=== PATIENT | female | born 1990 | race African-American/Black ===

== ENCOUNTER 2016-05-07 12:24 | Emergency (ER) | payer MEDICAID, MEDICARE ==
[~2016-05-07] VITALS: Ht 177.8 cm; Wt 140.6 kg
[~2016-05-07 12:24] MED LIST: AMX500CIP PO; Acetaminophen PO; CLAR-19 PO; CYCL10TA9 PO; HYDR-2890 PO; HYDR1TAB PO; IBUP-1780 PO; IBUP-30 PO; MEDR150D8 IM; NAPR-243 PO; NAPR550T PO; ONDA8TAB9 PO; PRED20TA PO; SEPTRA DS PO; SULF-222 PO; TRAM50TA2 PO; TRM50T PO
--- OUTSIDE RECORDS SUMMARY | 2016-05-07 12:29 | XMS REPORT | Continuity of Care Document ---
Author Author [facility] Organization [facility] Address Unknown Phone Unavailable Care Team Providers Care Organizational Psychologist Name Role Phone LAWANDA CANO MD PCP Advance Directives Directive Response Recorded Date/Time Advance Directives No 11/16/14 5:16pm Health Care Power of Resource Specialist Teacher No 11/16/14 5:16pm Organ Donor Yes 11/16/14 5:16pm Resuscitation Status Full Code 11/16/14 5:16pm Problems Medical Problems Problem Onset Date Status Sprain of ankle Unknown Active Abdominal pain Unknown Active Urinary tract infection Unknown Active Back strain Unknown Active Bulging lumbar disc Unknown Active Medications Medication Dose Route Sig Days/Qty Instructions Order Date Discontinued Date Status Clarithromycin 1 Tab PO TWICE A DAY 11/12/09 12/10/10 Discontinued Naproxen 1 Each PO TID PRN 20 Qty FOR PAIN 11/13/09 05/14/10 Discontinued Naproxen 1 Each PO BID - TID PRN 60 Qty 05/14/10 06/26/11 Discontinued Ibuprofen 200 Mg PO 06/26/11 10/31/11 Discontinued Naproxen Sodium 550 Mg PO TWICE A DAY PRN 10 Qty 06/26/11 10/31/11 Discontinued Hydrocodone Bit/Acetaminophen 1 Each PO NEEDED 20 Qty 10/31/1105/06 Discontinued Naproxen 1 Each PO TID PRN 20 Qty 05/27/12 12/11/12 Discontinued Tramadol HCl 50 Mg PO Q4-6HOURS PRN 20 Qty FOR PAIN 05/27/12 12/11/12 Discontinued Amoxicillin 500 Mg PO FOUR TIMES DAILY 12/11/12 03/10/13 Discontinued Naproxen 1 Each PO TWICE A DAY PRN PAIN 20 Qty 03/10/13 05/27/13 Discontinued Tramadol HCl 50 Mg PO EVERY 6 HOURS 10 Qty 03/10/13 05/27/13 Discontinued Tramadol Hcl 50 Mg PO EVERY 4HRS PRN PAIN 10 Qty 07/06/13 10/02/13 Discontinued Tramadol Hcl 50 Mg PO EVERY 4HRS PRN PAIN 10 Qty 10/02/13 10/14/13 Discontinued Tramadol HCl 50 Mg PO Q4-6HR PRN PAIN 10 Qty 10/14/13 01/29/14 Discontinued Trimethoprim/Sulfamethoxazole 1 Ea PO TWICE A DAY 10 Qty 01/29/1409/06 Discontinued [Acetaminophen] 1,000 Mg PO EVERY 6 HOURS PRN MILD PAIN 06/28/14 Discontinued [septra DS] 1 PO TWICE A DAY 7 Days 06/28/14 11/16/14 Discontinued Tramadol Hcl 50 Mg PO PRN PAIN 11/16/14 Active Prednisone 40 Mg PO DAILY 10 Qty 11/16/14 Active Cyclobenzaprine HCl (Flexeril) 1 Each PO EVERY 8HRS PRN SPASMS 10 Qty 11/16/14 Active Medroxyprogesterone Acet 150 Mg IM 11/16/14 Active Tramadol Hcl 50 Mg PO EVERY 4HRS PRN PAIN 14 Qty 11/16/14 Active Social History Social History Problem Response Recorded Date/Time Alcohol Use Denies Use 11/16/2014 5:16pm Recreational Drug Use No 11/16/2014 5:16pm Recent Foreign Travel No 02/02/2014 2:21am Recent Infectious Disease Exposure No 02/02/2014 2:21am Sexually Transmitted Disease No 11/16/2014 5:16pm HIV/AIDS No 11/16/2014 5:16pm Smoking Status Never a Smoker 11/16/2014 5:16pm Query Response Start Date Stop Date Smoking Status Never a Smoker Hospital Discharge Instructions No hospital discharge instructions. Plan of Care No plan of care. Functional Status No functional status results. Allergies, Adverse Reactions, Alerts Allergen Type Severity Reaction Status Last Updated hydrocodone ([id number]) Adverse Reaction Unknown NAUSEA Active 06/26/14 Immunizations Name Given Type Tetanus Booster (TDap) Less than 5yrs Historical Vital Signs Acute Vital Signs Vital Response Date/Time Temperature (Fahrenheit) 98.7 degrees F (97.6 - 99.5) Temperature (Calculated Celsius) 37.21334 degrees C (36.4 - 37.5) Temperature Source Temporal Pulse Rate (adult) 117 bpm (60 - 90) Respiratory Rate 20 bpm (12 - 24) O2 Sat by Pulse Oximetry 96 % (88 - 100) Blood Pressure 147/94 mm Hg Blood Pressure Mean 111 mm Hg Pain Pain Intensity 10 Height (Feet) 5 feet Height (Inches) 10 inches Height (Calculated Centimeters) 177.112457 cm Weight (Pounds) 310 pounds Weight (Calculated Kilograms) 140.445350 kilograms Calculated BMI 44.48 Results No known relevant diagnostic tests, laboratory data and/or discharge summary. Procedures No known history of procedures. Encounters Encounter Location Date/Time Departed Emergency Room Via [facility] 11/16/14 5:09pm Registered Referred Via [facility] 10/17/14 5:32pm Recent Diagnosis
[2016-05-07] MEDS ORDERED: NS IV 1000 ML 1,000 ML IV SCH (12:30)
[2016-05-07] MEDS ORDERED: ONDANSETRON 4 MG/2 ML (SDV) Z0FRAN IVP ONE (12:30)
--- NOTE | 2016-05-07 12:49 | ED Abdominal Pain ---
General Chief Complaint: Abdominal/GI Problems Stated Complaint: VOMITING, DIARRHEA Nursing Triage Note: N/V/D STARTING AT 0100 TODAY. Sepsis Screen: No Definite Risk Source of Information: Patient Exam Limitations: No Limitations History of Present Illness Time Seen By Provider: 12:48 Initial Comments To ER per mother with c/o nausea, vomiting, diarrhea x 12 hours. She awakened with vomiting at 1 a.m. last night. Throughout the course of the day she has had too many episodes of watery diarrhea without blood or mucus to count. Periumbilical pain. No fevers or chills. No eating out or travel history. Timing/Duration: 12 Hours Severity/Quality: Moderate Location: Generalized Abdomen Radiation: No Radiation Activities at Onset: None (So) Allergies and Home Medications Allergies Coded Allergies: No Known Drug Allergies (Unverified , 05/07/16) Home Medications Ondansetron 8 Mg Tab.rapdis #10 8 MG PO Q6H PRN PRN NAUSEA/VOMITING Prescribed by: DAMION CRAWFORD on 05/07/16 1425 Review of Systems Constitutional: see HPI EENTM: No Symptoms Reported Respiratory: No Symptoms Reported Cardiovascular: No Symptoms Reported Gastrointestinal: See HPI Abdominal Pain (some with some O through the) Diarrhea Nausea Vomiting Genitourinary: No Symptoms Reported Musculoskeletal: no symptoms reported Skin: no symptoms reported Psychiatric/Neurological: No Symptoms Reported Endocrine: No Symptoms Reported Hematologic/Lymphatic: No Symptoms Reported Past Rizepsr-Idzvyn-Rnutez Hx Patient Social History Alcohol Use: Occasionally Uses Recreational Drug Use: No Smoking Status: Never a Smoker Recent Foreign Travel: No Contact w/Someone Who Travel: No Recent Infectious Disease Expo: No Recent Hopitalizations: No Physical Abuse Screen: No Sexual Abuse: No Immunizations Up To Date Tetanus Booster (TDap): Less than 5yrs Seasonal Allergies Seasonal Allergies: No Surgeries HX Surgeries: No Respiratory Hx Respiratory Disorders: No Cardiovascular Hx Cardiac Disorders: No Neurological Hx Neurological Disorders: No Reproductive System : No Hx Reproductive Disorders: No Sexually Transmitted Disease: No HIV/AIDS: No Genitourinary Hx Genitourinary Disorders: No Gastrointestinal Hx Gastrointestinal Disorders: No Musculoskeletal Hx Musculoskeletal Disorders: No HEENT HX ENT Disorders: No Cancer Hx Cancer: No Psychosocial Hx Psychiatric Problems: No Integumentary HX Skin/Integumentary Disorder: No Blood Transfusions Hx Blood Disorders: No Adverse Reaction to a Blood Tr: No Family Medical History Significant Family History: No Pertinent Family Hx Family Medial History: ANXIETY 19 MOTHER Asthma 19 MOTHER (COPD) BI-POLAR 19 MOTHER BI-POLAR 19 MOTHER FH: heart attack Hypertension 19 MOTHER Physical Exam Vital Signs VS - Last 72 Hours, by Label 05/07/16 12:41 Temp 97.3 Pulse 118 Resp 18 B/P 141/88 Pulse Ox 97 Capillary Refill : Less Than 3 Seconds General Appearance: WD/WN no apparent distress obese HEENT: PERRL/EOMI normal ENT inspection Neck: non-tender full range of motion Respiratory: normal breath sounds no respiratory distress no accessory muscle use Cardiovascular: no murmur tachycardia Gastrointestinal: normal bowel sounds soft tenderness (periumbilical) Extremities: normal range of motion non-tender normal inspection Neurologic/Psychiatric: alert normal mood/affect oriented x 3 Skin: normal color warm/dry Progress/Results/Core Measures Results/Orders Lab Results Laboratory Tests Test 05/07/16 12:50 Range/Units Alanine Aminotransferase (ALT/SGPT) 15 0-55 U/L Albumin 3.9 3.2-4.5 G/DL Alkaline Phosphatase 79 40-136 U/L Anion Gap 10 5-14 MMOL/L Aspartate Amino Transf (AST/SGOT) 16 5-34 U/L BUN/Creatinine Ratio 11 Band Neutrophils 3 % Basophils # (Auto) 0.0 0.0-0.1 10^3/uL Basophils % (Manual) 0 % Basophils (%) (Auto) 0 0-10 % Blood Morphology Comment NORMAL Blood Urea Nitrogen 9 7-18 MG/DL Calcium Level 8.5 8.5-10.1 MG/DL Carbon Dioxide Level 23 21-32 MMOL/L Chloride Level 106 98-107 MMOL/L Creatinine 0.81 0.60-1.30 MG/DL Eosinophils # (Auto) 0.0 0.0-0.3 10^3/uL Eosinophils % (Manual) 1 % Eosinophils (%) (Auto) 0 0-10 % Estimat Glomerular Filtration Rate > 60 Glucose Level 112 H 70-105 MG/DL Hematocrit 41 35-52 % Hemoglobin 13.4 11.5-16.0 G/DL Lymphocytes # (Auto) 0.6 L 1.0-4.0 X 10^3 Lymphocytes % (Manual) 5 % Lymphocytes (%) (Auto) 5 L 12-44 % Mean Corpuscular Hemoglobin 28 25-34 PG Mean Corpuscular Hemoglobin Concent 33 32-36 G/DL Mean Corpuscular Volume 86 80-99 FL Mean Platelet Volume 10.2 7.4-10.4 FL Monocytes # (Auto) 0.6 0.0-1.0 X 10^3 Monocytes % (Manual) 5 % Monocytes (%) (Auto) 5 0-12 % Neutrophils # (Auto) 10.5 H 1.8-7.8 X 10^3 Neutrophils % (Manual) 86 % Neutrophils (%) (Auto) 89 H 42-75 % Platelet Count 210 130-400 10^3/uL Potassium Level 3.8 3.6-5.0 MMOL/L Red Blood Count 4.77 4.35-5.85 10^6/uL Red Cell Distribution Width 14.3 10.0-14.5 % Sodium Level 139 135-145 MMOL/L Total Bilirubin 0.4 0.1-1.0 MG/DL Total Protein 7.2 6.4-8.2 G/DL White Blood Count 11.7 H 4.3-11.0 10^3/uL My Orders Orders-DAMION CRAWFORD APRN Cbc With Automated Diff (05/07/16 12:29) Comprehensive Metabolic Panel (05/07/16 12:29) Urine Bedside (05/07/16 12:29) Saline Lock/Iv-Start (05/07/16 12:29) Ns Iv 1000 Ml (Sodium Chloride 0.9%) (05/07/16 12:30) Ondansetron Injection (Zofran Injectio (05/07/16 12:30) Manual Differential (05/07/16 12:50) Ketorolac Injection (Toradol Injection) (05/07/16 13:15) Ct Abd/Pelv W (Appendicitis) (05/07/16 13:23) Iohexol Injection (Omnipaque 350 Mg/Ml 1 (05/07/16 13:30) Ns (Ivpb) (Sodium Chloride 0.9% Ivpb Bag (05/07/16 13:30) Iohexol Injection (Omnipaque 350 Mg/Ml 1 (05/07/16 14:15) Medications Given in ED Current Medications Medications Dose Ordered Sig/Nicko Route Start Time Stop Time Status Last Admin Dose Admin Iohexol 150 ml ONCE ONCE IV 05/07/16 14:15 05/07/16 14:16 DC 05/07/16 14:15 125 ML Ketorolac Tromethamine 30 mg ONCE ONCE IVP 05/07/16 13:15 05/07/16 13:16 DC 05/07/16 13:16 30 MG Ondansetron HCl 8 mg ONCE ONCE IVP 05/07/16 12:30 05/07/16 12:31 DC 05/07/16 12:49 8 MG Sodium Chloride 100 ml ONCE ONCE IV 05/07/16 13:30 05/07/16 13:31 DC 05/07/16 14:15 80 ML Vital Signs/I&O Vital Sign - Last 12Hours 05/07/16 12:41 Temp 97.3 Pulse 118 Resp 18 B/P 141/88 Pulse Ox 97 Blood Pressure Mean: 105 Departure Communication Progress Notes 1424-Patient feels much better at this time Impression Impression: Primary Impression: Nausea vomiting and diarrhea Disposition: 01 HOME, SELF-CARE Condition: Stable Departure-Patient Inst. Decision time for Depature: 14:24 Referrals: LAWANDA CANO MD (PCP/Family) Primary Care Physician Patient Instructions: Acute Abdomen (Belly Pain), Adult (DC) Add. Discharge Instructions: 1. Return to ER for any worsening pain or fevers 2. Nausea medication as directed 3. Clear liquids only for the rest of today. Do not eat anything other than Jell-O. Gatorade and chicken broth the alternatives. 4. Starting tomorrow follow a brat diet bananas rice applesauce and toast and advance slowly to a normal diet All discharge instructions reviewed with patient and/or family. Voiced understanding. 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
[2016-05-07 12:57] LABS: BASOPHILS % (AUTO) 0 % (0-10); EOSINOPHILS % (AUTO) 0 % (0-10); LYMPHOCYTES # (AUTO) 0.6 X 10^3 (1.0-4.0); LYMPHOCYTES % (AUTO) 5 % (12-44); MEAN CORPUSCULAR HEMOGLOBIN 28 PG (25-34); MEAN CORPUSCULAR HGB CONC 33 G/DL (32-36); MEAN CORPUSCULAR VOLUME 86 FL (80-99); MEAN PLATELET VOLUME 10.2 FL (7.4-10.4); MONOCYTES # (AUTO) 0.6 X 10^3 (0.0-1.0); MONOCYTES % (AUTO) 5 % (0-12); NEUTROPHILS # (AUTO) 10.5 X 10^3 (1.8-7.8); NEUTROPHILS % (AUTO) 89 % (42-75); PLATELET COUNT 210 10^3/uL (130-400); RED BLOOD COUNT 4.77 10^6/uL (4.35-5.85); RED CELL DISTRIBUTION WIDTH 14.3 % (10.0-14.5); WHITE BLOOD COUNT 11.7 10^3/uL (4.3-11.0)
[2016-05-07 13:15] LABS: ALANINE AMINOTRANSFERASE 15 U/L (0-55); ALBUMIN 3.9 G/DL (3.2-4.5); ANION GAP 10 MMOL/L (5-14); ASPARTATE AMINO TRANSFERASE 16 U/L (5-34); BILIRUBIN,TOTAL 0.4 MG/DL (0.1-1.0); BLOOD UREA NITROGEN 9 MG/DL (7-18); BUN/CREATININE RATIO 11; CALCIUM 8.5 MG/DL (8.5-10.1); CARBON DIOXIDE 23 MMOL/L (21-32); CHLORIDE 106 MMOL/L (98-107); CREATININE SERUM 0.81 MG/DL (0.60-1.30); GFR ESTIMATED > 60; GLUCOSE 112 MG/DL (70-105); POTASSIUM 3.8 MMOL/L (3.6-5.0); SODIUM 139 MMOL/L (135-145); TOTAL PROTEIN 7.2 G/DL (6.4-8.2)
[2016-05-07] MEDS ORDERED: KETOROLAC 30 MG/ML VIAL IVP ONE (13:15)
[2016-05-07 13:17] LABS: BAND NEUTROPHILS 3 %; BASOPHILS % (MANUAL) 0 %; EOSINOPHILS % (MANUAL) 1 %; LYMPHOCYTES % (MANUAL) 5 %; NEUTROPHILS % (MANUAL) 86 %
[2016-05-07] MEDS ORDERED: IOHEXOL 350 MG/ML 100 ML (OMNIPAQUE 350) VIAL IV ONE (13:30)
[2016-05-07] MEDS ORDERED: NS 100 ML (IVPB) BAG IV ONE (13:30)
[2016-05-07] MEDS ORDERED: IOHEXOL 350 MG/ML 150 ML (OMNIPAQUE 350) VIAL IV ONE (14:15)
[2016-05-07] MEDS ORDERED: ONDA8TAB9 PO (14:25)
--- NOTE | 2016-05-07 15:09 | Diagnostic Imaging Report ---
PROCEDURE: CT abdomen and pelvis with contrast, rule out appendicitis. TECHNIQUE: Multiple contiguous axial images were obtained through the abdomen and pelvis after the administration of intravenous contrast. INDICATION: Nausea, vomiting, diarrhea, pain greatest in the right lower quadrant. FINDINGS: The appendix can be identified. Its lumen particularly distally is air containing. Its wall is non thickened. There was no abnormal mucosal hyperenhancement and no periappendiceal edema. There are no findings of appendicitis in this patient. The urinary tracts are unobstructed. The liver, gallbladder, bile ducts, spleen, adrenals, and pancreas are normal. There is fluid within the lumen of the small bowel diffusely, mildly distended with some scattered air-fluid levels. Partial obstruction could not be differentiated from a hypermotile state such as enteritis. There is some fluid in the large bowel. No transition zones are identified. There is no ascites, abscess, hematoma, or other fluid collection. No pneumatosis. No free air. Kidneys are unobstructed and appeared normal. The spleen is unremarkable. There is mild hepatic steatosis. The gallbladder and bile ducts are normal. The aortoiliac vessels are patent. IMPRESSION: 1. There is some fluid within the large and small bowel loops. The small bowel is mildly distended and showed scattered air-fluid levels, suggestive of an enteritis. No abrupt or discrete transition zone however early or partial small bowel obstruction could not be excluded, although felt less likely. 2. Normal appendix. No adnexal lesion. No diverticulitis. Unobstructed urinary tracts. Otherwise, negative exam. Dictated by: Dictated on workstation # [id number]
[2016-05-07] MEDS ORDERED: PROM25TA14 PO (15:32)
[2016-05-07 15:33] VITALS: BP 129/77
== END 2016-05-07 15:33 | disposition home or self-care (01) ==
LOC: EDUNIT# 12:24 → ER 12:26
DX: R11.2 Nausea with vomiting, unspecified (principal); R19.7 Diarrhea, unspecified
CPT/HCPCS: 36415; 74177; 80053; 84703; 85007; 85025; 85027; 96374; 96375

== ENCOUNTER 2016-06-23 19:31 | Emergency (ER) | payer MEDICAID, MEDICARE ==
[~2016-06-23] VITALS: Ht 177.8 cm; Wt 140.6 kg
[~2016-06-23 19:31] MED LIST changes: +PROM25TA14 PO
--- OUTSIDE RECORDS SUMMARY | 2016-06-23 19:36 | XMS REPORT | Continuity of Care Document ---
Author Author [facility] Organization [facility] Address Unknown Phone Unavailable Care Team Providers Care Tufter Operator Name Role Phone LAWANDA CANO MD PCP Advance Directives Directive Response Recorded Date/Time Advance Directives No 11/16/14 5:16pm Health Care Power of Sales Warehouse Driver No 11/16/14 5:16pm Organ Donor Yes 11/16/14 [...] Type Severity Reaction Status Last Updated hydrocodone ([id number]) Adverse Reaction Unknown NAUSEA Active 06/26/14 Immunizations Name Given Type Tetanus Booster (TDap) Less than 5yrs Historical Vital Signs Acute Vital Signs Vital Response Date/Time Temperature (Fahrenheit) 98.7 degrees F (97.6 - 99.5) Temperature (Calculated Celsius) 37.76225 degrees C (36.4 - 37.5) Temperature Source Temporal Pulse Rate (adult) 117 bpm (60 - 90) Respiratory Rate 20 bpm (12 - 24) O2 Sat by Pulse Oximetry 96 % (88 - 100) Blood Pressure 147/94 mm Hg Blood Pressure Mean 111 mm Hg Pain Pain Intensity 10 Height (Feet) 5 feet Height (Inches) 10 inches Height (Calculated Centimeters) 177.051559 cm Weight (Pounds) 310 pounds Weight (Calculated Kilograms) 140.134909 kilograms Calculated BMI 44.48 Results No known relevant diagnostic tests, laboratory data and/or discharge summary. Procedures No known history of procedures. Encounters Encounter Location Date/Time Departed Emergency Room Via [facility] 11/16/14 5:09pm Registered Referred Via [facility] 10/17/14 5:32pm Recent Diagnosis
--- NOTE | 2016-06-23 19:52 | ED Abdominal Pain ---
General Chief Complaint: Abdominal/GI Problems Stated Complaint: ABD PAIN Source of Information: Patient Exam Limitations: No Limitations History of Present Illness Time Seen By Provider: 19:52 Initial Comments Patient complains of right-sided abdominal pain since this morning. It has gotten worse. It is associated with nausea and subjective fever. She has not vomited. Last menstrual period was 2 weeks ago. She is on control pills. Pain is worse with movement such as walking. Allergies and Home Medications Allergies Coded Allergies: No Known Drug Allergies (Unverified , 05/07/16) Home Medications (Reported) Review of Systems Constitutional: fever EENTM: No Symptoms Reported Respiratory: No Symptoms Reported Cardiovascular: No Symptoms Reported Gastrointestinal: Abdominal Pain NauseaDenies Vomiting Genitourinary: No Symptoms Reported Musculoskeletal: no symptoms reported All Other Systems Reviewed Negative Unless Noted: Yes Past Aacqhec-Oxnjdf-Unthqp Hx Patient Social History Recent Foreign Travel: No Contact w/Someone Who Travel: No Recent Hopitalizations: No Immunizations Up To Date Tetanus Booster (TDap): Less than 5yrs Seasonal Allergies Seasonal Allergies: No Surgeries HX Surgeries: No Respiratory Hx Respiratory Disorders: No Cardiovascular Hx Cardiac Disorders: No Neurological Hx Neurological Disorders: No Reproductive System Hx Reproductive Disorders: No Sexually Transmitted Disease: No HIV/AIDS: No Genitourinary Hx Genitourinary Disorders: No Gastrointestinal Hx Gastrointestinal Disorders: No Musculoskeletal Hx Musculoskeletal Disorders: No HEENT HX ENT Disorders: No Cancer Hx Cancer: No Psychosocial Hx Psychiatric Problems: No Integumentary HX Skin/Integumentary Disorder: No Blood Transfusions Hx Blood Disorders: No Adverse Reaction to a Blood Tr: No Reviewed Nursing Assessment Reviewed/Agree w Nursing PMH: Yes Family Medical History Significant Family History: No Pertinent Family Hx Family Medial History: ANXIETY 19 MOTHER Asthma 19 MOTHER (COPD) BI-POLAR 19 MOTHER BI-POLAR 19 MOTHER FH: heart attack Hypertension 19 MOTHER Physical Exam Vital Signs VS - Last 72 Hours, by Label 06/23/16 19:34 Temp 99.3 Pulse 107 Resp 20 B/P 185/94 Pulse Ox 98 O2 Delivery Room Air Capillary Refill : General Appearance: WD/WN mild distress obese HEENT: PERRL/EOMI pharynx normal Neck: supple Respiratory: lungs clear normal breath sounds Cardiovascular: regular rate, rhythm no edema Gastrointestinal: softNo guarding, No rebound, tenderness (tender over McBurney's spot) Extremities: normal inspection Back: normal inspection Neurologic/Psychiatric: alert normal mood/affect Skin: normal color warm/dry Progress/Results/Core Measures Results/Orders Lab Results Laboratory Tests Test 06/23/16 19:40 06/23/16 19:45 Range/Units Urine Bacteria FEW H /HPF Urine Bilirubin NEGATIVE NEGATIVE Urine Casts NONE /LPF Urine Clarity CLEAR Urine Color YELLOW Urine Crystals NONE /LPF Urine Culture Indicated NO Urine Glucose (UA) NEGATIVE NEGATIVE Urine Ketones NEGATIVE NEGATIVE Urine Leukocyte Esterase NEGATIVE NEGATIVE Urine Mucus SMALL H /LPF Urine Nitrite NEGATIVE NEGATIVE Urine Protein NEGATIVE NEGATIVE Urine RBC NONE /HPF Urine RBC (Auto) NEGATIVE NEGATIVE Urine Specific [place] 1.020 1.016-1.022 Urine Squamous Epithelial Cells 2-5 /HPF Urine Urobilinogen NORMAL NORMAL MG/DL Urine WBC NONE /HPF Urine pH 6.5 5-9 Alanine Aminotransferase (ALT/SGPT) 15 0-55 U/L Albumin 4.0 3.2-4.5 G/DL Alkaline Phosphatase 103 40-136 U/L Anion Gap 14 5-14 MMOL/L Aspartate Amino Transf (AST/SGOT) 18 5-34 U/L BUN/Creatinine Ratio 10 Basophils # (Auto) 0.0 0.0-0.1 10^3/uL Basophils (%) (Auto) 0 0-10 % Blood Urea Nitrogen 8 7-18 MG/DL Calcium Level 8.7 8.5-10.1 MG/DL Carbon Dioxide Level 20 L 21-32 MMOL/L Chloride Level 109 H 98-107 MMOL/L Creatinine 0.82 0.60-1.30 MG/DL Eosinophils # (Auto) 0.3 0.0-0.3 10^3/uL Eosinophils (%) (Auto) 3 0-10 % Estimat Glomerular Filtration Rate > 60 Glucose Level 72 70-105 MG/DL Hematocrit 39 35-52 % Hemoglobin 12.9 11.5-16.0 G/DL Lipase 11 8-78 U/L Lymphocytes # (Auto) 2.4 1.0-4.0 X 10^3 Lymphocytes (%) (Auto) 27 12-44 % Mean Corpuscular Hemoglobin 28 25-34 PG Mean Corpuscular Hemoglobin Concent 33 32-36 G/DL Mean Corpuscular Volume 85 80-99 FL Mean Platelet Volume 10.8 H 7.4-10.4 FL Monocytes # (Auto) 0.7 0.0-1.0 X 10^3 Monocytes (%) (Auto) 8 0-12 % Neutrophils # (Auto) 5.7 1.8-7.8 X 10^3 Neutrophils (%) (Auto) 62 42-75 % Platelet Count 207 130-400 10^3/uL Potassium Level 3.9 3.6-5.0 MMOL/L Red Blood Count 4.60 4.35-5.85 10^6/uL Red Cell Distribution Width 14.0 10.0-14.5 % Sodium Level 143 135-145 MMOL/L Total Bilirubin 0.2 0.1-1.0 MG/DL Total Protein 7.2 6.4-8.2 G/DL White Blood Count 9.2 4.3-11.0 10^3/uL My Orders Orders-TIANA LAKE MD Cbc With Automated Diff (06/23/16 19:35) Comprehensive Metabolic Panel (06/23/16 19:35) Lipase (06/23/16 19:35) Ua Culture If Indicated (06/23/16 19:35) Urine Bedside (06/23/16 19:35) Ct Abd/Pelv W (Appendicitis) (06/23/16 19:56) Iohexol Injection (Omnipaque 350 Mg/Ml 1 (06/23/16 20:15) Ns (Ivpb) (Sodium Chloride 0.9% Ivpb Bag (06/23/16 20:15) Medications Given in ED Current Medications Medications Dose Ordered Sig/Nicko Route Start Time Stop Time Status Last Admin Dose Admin Iohexol 100 ml ONCE ONCE IV 06/23/16 20:15 06/23/16 20:16 DC 06/23/16 20:18 100 ML Sodium Chloride 100 ml ONCE ONCE IV 06/23/16 20:15 06/23/16 20:16 DC 06/23/16 20:18 100 ML Vital Signs/I&O Vital Sign - Last 12Hours 06/23/16 19:34 Temp 99.3 Pulse 107 Resp 20 B/P 185/94 Pulse Ox 98 O2 Delivery Room Air Point of Care Testing Urine -Bedside: Negative Progress Note : Time: 21:[address] findings discussed with patient. She has remained stable. We'll discharge with tramadol. Diagnostic Imaging Comments INDICATION: 25-year-old female presents to the ER with a 2-day history of right lower quadrant abdominal pain. COMPARISONS: 05/07/16 FINDINGS: Lung bases are clear. Cardiac contour is normal. Liver shows uniform attenuation. Gallbladder is decompressed. Spleen and GE junction are normal. Stomach and duodenal sweep are unremarkable. Pancreas shows sharp margins. Adrenals are normal. Kidneys appear normal in size, position and contour. There is suboptimal contrast opacification, however, the kidneys show symmetrical perfusion and excretion of contrast. Both ureters are seen intermittently through their course. Bilateral ureteral jets are seen. The partially filled bladder is unremarkable. The nonopacified loops of small bowel are grossly normal. There are multiple small mesenteric nodes suggesting an element of adenitis. Large bowel contains fecal material and gas. The visualized vasculature includes a normal caliber of the aorta, iliac and femoral arteries. There is normal origin of the visceral arteries. Bone windows Show no overall gross abnormalities. IMPRESSION: 1. Findings suggest mesenteric adenitis. 2. No evidence of cholecystitis, appendicitis or obstructive uropathy. Additional nonemergent findings as described above Departure Impression Impression: Primary Impression: abdominal pain Additional Impression: Mesenteric adenitis Disposition: 01 HOME, SELF-CARE Condition: Stable Departure-Patient Inst. Decision time for Depature: 21:07 Referrals: LAWANDA CANO MD (PCP/Family) Primary Care Physician Patient Instructions: Mesenteric Lymphadenitis Scripts Tramadol HCl 50 Mg Tablet1-2 Mg PO Q6H PRN PAIN #10 TAB Prov:TIANA LAKE MD 06/23/16 TIANA LAKE MD Jun 23, 2016 19:52
[2016-06-23 19:55] LABS: BASOPHILS % (AUTO) 0 % (0-10); EOSINOPHILS # (AUTO) 0.3 10^3/uL (0.0-0.3); EOSINOPHILS % (AUTO) 3 % (0-10); LYMPHOCYTES # (AUTO) 2.4 X 10^3 (1.0-4.0); LYMPHOCYTES % (AUTO) 27 % (12-44); MEAN CORPUSCULAR HEMOGLOBIN 28 PG (25-34); MEAN CORPUSCULAR HGB CONC 33 G/DL (32-36); MEAN CORPUSCULAR VOLUME 85 FL (80-99); MEAN PLATELET VOLUME 10.8 FL (7.4-10.4); MONOCYTES # (AUTO) 0.7 X 10^3 (0.0-1.0); MONOCYTES % (AUTO) 8 % (0-12); NEUTROPHILS # (AUTO) 5.7 X 10^3 (1.8-7.8); NEUTROPHILS % (AUTO) 62 % (42-75); PLATELET COUNT 207 10^3/uL (130-400); WHITE BLOOD COUNT 9.2 10^3/uL (4.3-11.0)
[2016-06-23 19:56] LABS: BILIRUBIN,URINE NEGATIVE (NEGATIVE); KETONES,URINE NEGATIVE (NEGATIVE); LEUKOCYTE ESTERASE ,URINE NEGATIVE (NEGATIVE); NITRITE,URINE NEGATIVE (NEGATIVE); PH,URINE 6.5 (5-9); PROTEIN,URINE NEGATIVE (NEGATIVE); UROBILINOGEN,URINE NORMAL (NORMAL)
[2016-06-23] MEDS ORDERED: BCP (20:00)
[2016-06-23] MEDS ORDERED: NS 100 ML (IVPB) BAG IV ONE (20:15)
[2016-06-23] MEDS ORDERED: IOHEXOL 350 MG/ML 100 ML (OMNIPAQUE 350) VIAL IV ONE (20:15)
[2016-06-23 20:16] LABS: ALANINE AMINOTRANSFERASE 15 U/L (0-55); ANION GAP 14 MMOL/L (5-14); ASPARTATE AMINO TRANSFERASE 18 U/L (5-34); BILIRUBIN,TOTAL 0.2 MG/DL (0.1-1.0); BLOOD UREA NITROGEN 8 MG/DL (7-18); BUN/CREATININE RATIO 10; CALCIUM 8.7 MG/DL (8.5-10.1); CARBON DIOXIDE 20 MMOL/L (21-32); CHLORIDE 109 MMOL/L (98-107); CREATININE SERUM 0.82 MG/DL (0.60-1.30); GFR ESTIMATED > 60; GLUCOSE 72 MG/DL (70-105); LIPASE 11 U/L (8-78); POTASSIUM 3.9 MMOL/L (3.6-5.0); SODIUM 143 MMOL/L (135-145); TOTAL PROTEIN 7.2 G/DL (6.4-8.2)
--- NOTE | 2016-06-23 21:01 | Diagnostic Imaging Report ---
PROCEDURE: CT abdomen and pelvis with contrast, rule out appendicitis. TECHNIQUE: Multiple contiguous axial images were obtained through the abdomen and pelvis after the administration of intravenous contrast. INDICATION: 25-year-old female presents to the ER with a 2-day history of right lower quadrant abdominal pain. COMPARISONS: 05/07/16 FINDINGS: Lung bases are clear. Cardiac contour is normal. Liver shows uniform attenuation. Gallbladder is decompressed. Spleen and GE junction are normal. Stomach and duodenal sweep are unremarkable. Pancreas shows sharp margins. Adrenals are normal. Kidneys appear normal in size, position and contour. There is suboptimal contrast opacification, however, the kidneys show symmetrical perfusion and excretion of contrast. Both ureters are seen intermittently through their course. Bilateral ureteral jets are seen. The partially filled bladder is unremarkable. The nonopacified loops of small bowel are grossly normal. There are multiple small mesenteric nodes suggesting an element of adenitis. Large bowel contains fecal material and gas. The visualized vasculature includes a normal caliber of the aorta, iliac and femoral arteries. There is normal origin of the visceral arteries. Bone windows Show no overall gross abnormalities. IMPRESSION: 1. Findings suggest mesenteric adenitis. 2. No evidence of cholecystitis, appendicitis or obstructive uropathy. Additional nonemergent findings as described above. Dictated by: Dictated on workstation # [id number]
[2016-06-23] MEDS ORDERED: TRAM50TA2 PO (21:11)
[2016-06-23] MEDS ORDERED: RX-TRAMADOL 50 MG (ULTRAM) TAB PPK#4 PO STA (21:11)
[2016-06-23 21:16] VITALS: BP 171/88
== END 2016-06-23 21:16 | disposition home or self-care (01) ==
LOC: EDUNIT# 19:31 → ER 19:32
DX: I88.0 Nonspecific mesenteric lymphadenitis (principal)
CPT/HCPCS: 36415; 74177; 80053; 81000; 83690; 84703; 85025

== ENCOUNTER → 2016-07-30 | Outpatient (CLI) | payer MEDICARE, MEDICAID ==
[~2016-07-30] MED LIST changes: +BCP
--- NOTE | 2016-07-30 10:50 | Diagnostic Imaging Report ---
PROCEDURE: US Gallbladder. TECHNIQUE: Multiple real-time grayscale images were obtained over the right upper quadrant in various projections. INDICATION: Right upper quadrant pain. FINDINGS: The visualized portions of the pancreas appear unremarkable. The liver demonstrates no focal lesion. Hepatopedal flow in the portal vein is seen. The gallbladder demonstrates no stones or wall thickening. No pericholecystic fluid. The CBD is 3 mm in caliber. The right kidney is 11.1 CM in length with no hydronephrosis or focal lesion. No free fluid or fluid collection in the abdomen or pelvis. Sonographic Munoz sign is reportedly negative. IMPRESSION: Unremarkable exam. Dictated by: Dictated on workstation # [id number]
== END ==
LOC: RAD 06:44
PROVIDERS: ATTEND Family Medicine
DX: R10.11 Right upper quadrant pain (principal)
CPT/HCPCS: 76705

== ENCOUNTER 2016-09-22 17:27 | Emergency (ER) | payer MEDICARE, MEDICAID ==
[~2016-09-22] VITALS: Ht 177.8 cm; Wt 138.3 kg
[2016-09-22] MEDS ORDERED: PRD20T PO (17:43)
[2016-09-22] MEDS ORDERED: IBUP-1780 PO (17:43)
[2016-09-22] MEDS ORDERED: CYCL10TA9 PO (17:43)
--- NOTE | 2016-09-22 17:44 | ED Back Pain ---
General Chief Complaint: Back Problems Stated Complaint: BACK PAIN Nursing Triage Note: C/O BACK PAIN NO INJURY X 2 DAYS Source of Information: Patient, Family (mother) Exam Limitations: No Limitations History of Present Illness Time Seen by Provider: 17:33 Initial Comments 26-year-old female patient presents to the emergency department with complaints of back pain for 2 days without known injury. States she awoke with the pain. Denies numbness, weakness, bowel incontinence, bladder incontinence. Location: Paraspinous Muscles Timing/Duration: 2-3 Days, Constant Pain/Injury Location: Back Radiation: Other (denies radiation) Method of Injury: Unknown Modifying Factors: Worse With Movement Associated Symptoms: muscle spasms, No numbness in legs/feet, No tingling in legs/feet, No sensory/motor loss, lower back pain, No loss of bladder control, No loss of bowel control Allergies and Home Medications Allergies Coded Allergies: No Known Drug Allergies (Unverified , 05/07/16) Home Medications Cyclobenzaprine HCl 10 Mg Tablet, 10 MG PO Q8H PRN for SPASMS, #14 Ref 0 Prescribed by: ROGELIO CEE on 09/22/161742 Ibuprofen 800 Mg Tablet, 800 MG PO Q8H PRN for PAIN, #30 Ref 0 Prescribed by: ROGELIO CEE on 09/22/161742 Prednisone 20 Mg Tab, 40 MG PO DAILY, #10 Ref 0 Prescribed by: ROGELIO CEE on 09/22/161742 Tramadol HCl 50 Mg Tablet, 1-2 MG PO Q6H PRN for PAIN, #10 Prescribed by: TIANA LAKE on 06/23/162110 [Bcp] , (Reported) Constitutional: No chills, No fever, No malaise Respiratory: no symptoms reported Cardiovascular: no symptoms reported Gastrointestinal: No abdominal pain, No constipation, No diarrhea, No nausea, No vomiting Genitourinary: No dysuria, No frequency, No hematuria, No pain Musculoskeletal: see HPI, back pain, No joint pain Skin: no symptoms reported Psychiatric/Neurological: No Symptoms Reported All Other Systems Reviewed Negative Unless Noted: Yes (Negative excepted noted.) Past Ardajbk-Rarlor-Rdrdnf Hx Patient Social History Recent Foreign Travel: No Contact w/Someone Who Travel: No Recent Hopitalizations: No Immunizations Up To Date Tetanus Booster (TDap): Less than 5yrs Seasonal Allergies Seasonal Allergies: No Surgeries HX Surgeries: No Respiratory Hx Respiratory Disorders: No Cardiovascular Hx Cardiac Disorders: No Neurological Hx Neurological Disorders: No Reproductive System Hx Reproductive Disorders: No Sexually Transmitted Disease: No HIV/AIDS: No Genitourinary Hx Genitourinary Disorders: No Gastrointestinal Hx Gastrointestinal Disorders: No Musculoskeletal Hx Musculoskeletal Disorders: No HEENT HX ENT Disorders: No Cancer Hx Cancer: No Psychosocial Hx Psychiatric Problems: No Integumentary HX Skin/Integumentary Disorder: No Blood Transfusions Hx Blood Disorders: No Adverse Reaction to a Blood Tr: No Reviewed Nursing Assessment Reviewed/Agree w Nursing PMH: Yes Family Medical History Significant Family History: No Pertinent Family Hx Family Medial History: ANXIETY 19 MOTHER Asthma 19 MOTHER (COPD) BI-POLAR 19 MOTHER BI-POLAR 19 MOTHER FH: heart attack Hypertension 19 MOTHER Physical Exam Vital Signs Vital Sign - Last 12Hours 09/22/16 17:33 Temp 97.7 Pulse 81 Resp 18 B/P (MAP) 140/100 Pulse Ox 99 O2 Delivery Room Air Capillary Refill : General Appearance: No Apparent Distress, WD/WN Neck: Full Range of Motion, Normal Inspection, Non Tender, Supple Cardiovascular: Regular Rate, Rhythm, No Edema, No Murmur, Normal Peripheral Pulses Respiratory: Lungs Clear, Normal Breath Sounds, No Respiratory Distress Gastrointestinal: Normal Bowel Sounds, Non Tender, Soft Back: Normal Inspection, No Decreased Range of Motion, Vertebral Tenderness ( minimal tenderness over the L4, L5, and S1.), Other (tenderness over the bilateral low back paraspinous muscles) Extremity: Normal Capillary Refill, Normal Inspection, Normal Range of Motion, Non Tender, No Pedal Edema Neurologic/Psychiatric: Alert, Oriented x3, No Motor/Sensory Deficits, Normal Mood/Affect Skin: Normal Color, Warm/Dry Progress/Results/Core Measures Results/Orders My Orders Orders - ROGELIO CEE Cyclobenzaprine Tablet (Flexeril Tablet) (09/22/16 17:44) Tramadol Tablet (Ultram Tablet) (09/22/16 17:44) Vital Signs/I&O Vital Sign - Last 12Hours 09/22/16 09/22/16 17:33 17:54 Temp 97.7 97.7 Pulse 81 81 Resp 18 18 B/P (MAP) 140/100 Pulse Ox 99 99 O2 Delivery Room Air Departure Communication Progress Notes Patient seen and evaluated. Plan for discharge to home. Impression Impression: Primary Impression: Lumbosacral strain Qualified Codes: S39.012A - Strain of muscle, fascia and tendon of lower back , initial encounter Disposition: 01 HOME, SELF-CARE Condition: Improved Departure-Patient Inst. Decision time for Depature: 17:41 Referrals: LAWANDA DANGELO MD (PCP/Family) Primary Care Physician Patient Instructions: Low Back Pain (DC) Add. Discharge Instructions: All discharge instructions reviewed with patient and/or family. Voiced understanding. Medications as instructed. Tylenol Extra Strength over-the- counter as directed for pain. Ice pack or heating pads as needed for pain. No lifting, pushing, pulling, twisting, bending, climbing 7 days. Follow-up with Dr. Dangelo is an outpatient for a recheck if no improvement in symptoms in 7-10 days. Return to the emergency department for worsened pain, fever, inability to urinate, blood in the urine, numbness, weakness, bowel incontinence, bladder incontinence, or any other concerns. Scripts Ibuprofen (Ibuprofen) 800 Mg Tablet 800 MG PO Q8H Y for PAIN, #30 TAB 0 Refills Prov: ROGELIO CEE 09/22/16 Cyclobenzaprine HCl (Cyclobenzaprine HCl) 10 Mg Tablet 10 MG PO Q8H Y for SPASMS, #14 TAB 0 Refills Prov: ROGELIO CEE 09/22/16 Prednisone (Prednisone) 20 Mg Tab 40 MG PO DAILY, #10 TAB 0 Refills Prov: ROGELIO CEE 09/22/16 ROGELIO CEE September 22, 2016 17:44
[2016-09-22] MEDS: CYCLOBENZAPRINE 10 MG (FLEXERIL) TAB PO STA (17:52)
[2016-09-22 17:54] VITALS: BP 140/100
== END 2016-09-22 17:54 | disposition home or self-care (01) ==
LOC: EDUNIT# 17:27 → ER 17:29
DX: S39.012A Strain of muscle, fascia and tendon of lower back, initial encounter (principal); X50.9XXA Other and unspecified overexertion or strenuous movements or postures, initial encounter; Y99.8 Other external cause status
CPT/HCPCS: 99281

== ENCOUNTER 2017-08-11 15:55 | Emergency (ER) | payer MEDICAID, MEDICARE ==
[~2017-08-11] VITALS: Ht 177.8 cm; Wt 140.6 kg
[~2017-08-11 15:55] MED LIST changes: +PRD20T PO
--- OUTSIDE RECORDS SUMMARY | 2017-08-11 16:02 | XMS REPORT | Continuity of Care Document ---
Author Author [facility] Organization [facility] Address Unknown Phone Unavailable Allergies Active Description Code Type Severity Reaction Onset Reported/Identified Relationship to Patient Clinical Status Yes hydrocodone [id number] Drug Allergy Unknown NAUSEA 06/26/2014 Yes No Known Drug Allergies [id number] Drug Allergy Unknown N/A 05/07/2016 Medications There is no data. Problems Date Dx Coded Attending Type Code Diagnosis Diagnosed By 10/08/2009 Ot 620.2 10/08/2009 Ot 789.09 11/13/2009 Ot 845.00 11/13/2009 Ot 959.7 11/13/2009 Ot E000.8 11/13/2009 Ot E849.0 11/13/2009 Ot E883.9 05/14/2010 Ot 923.20 05/14/2010 Ot 959.4 05/14/2010 Ot E000.8 05/14/2010 Ot E849.0 05/14/2010 Ot E917.9 12/10/2010 Ot 845.00 SPRAIN OF ANKLE NOS 12/10/2010 Ot 959.7 LOWER LEG INJURY NOS 12/10/2010 Ot E000.8 OTHER EXTERNAL CAUSE STATUS 12/10/2010 Ot E849.0 ACCIDENT IN HOME 12/10/2010 Ot E880.9 FALL ON STAIR/STEP NEC 06/26/2011 Ot 719.41 JOINT PAIN- SHLDER 06/26/2011 Ot 726.10 BURSAE TENDONS DIS SHLDER NOS 09/07/2011 Ot 923.20 CONTUSION OF HAND(S) 09/07/2011 Ot 959.4 HAND INJURY NOS 09/07/2011 Ot E000.8 OTHER EXTERNAL CAUSE STATUS 09/07/2011 Ot E849.0 ACCIDENT IN HOME 09/07/2011 Ot E917.4 STAT OB W/O SUB FALL NEC 10/31/2011 Ot 786.52 PAINFUL RESPIRATION 01/24/2012 Ot 719.45 JOINT PAIN- PELVIS 01/24/2012 Ot 924.01 CONTUSION OF HIP 01/24/2012 Ot E000.8 OTHER EXTERNAL CAUSE STATUS 01/24/2012 Ot E888.9 FALL NOS 05/27/2012 Ot 719.46 JOINT PAIN-L /LEG 12/11/2012 KELLY FRENCH, ALEAH Suarez Ot 924.11 CONTUSION OF KNEE 12/11/2012 KELLY FRENCH, ALEAH Suarez Ot 959.7 LOWER LEG INJURY NOS 12/11/2012 ALEAH MENDOZA MD Ot E000.8 OTHER EXTERNAL CAUSE STATUS 12/11/2012 KELLY FRENCH, ALEAH Suarez Ot E849.4 ACCID IN RECREATION AREA 12/11/2012 ALEAH MENDOZA MD Ot E888.9 FALL NOS 03/10/2013 DAMION CRAWFORD APRN Ot 845.00 SPRAIN OF ANKLE NOS 03/10/2013 DAMION CRAWFORD APRN Ot 959.7 LOWER LEG INJURY NOS 03/10/2013 DAMION CRAWFORD APRN Ot E000.8 OTHER EXTERNAL CAUSE STATUS 03/10/2013 DAMION CRAWFORD APRN Ot E001.0 ACTIVITIES INVOLVING WALKING, MARCHING A 03/10/2013 DAMION CRAWFORD APRN Ot E849.[address]/HIGHWAY 03/10/2013 DAMION CRAWFORD APRN Ot E883.9 FALL INTO OTHER HOLE 05/27/2013 TERRI ALEXANDER DO Ot 789.03 ABDOMINAL PAIN, RIGHT LOWER QUADRANT 07/06/2013 ROGELIO BARON Ot 923.20 CONTUSION OF HAND(S) 07/06/2013 ROGELIO BARON Ot 959.4 HAND INJURY NOS 07/06/2013 ROGELIO BARON Ot E000.8 OTHER EXTERNAL CAUSE STATUS 07/06/2013 ROGELIO BARON Ot E917.4 STAT OB W/O SUB FALL NEC 10/02/2013 ROGELIO BARON Ot 917.0 ABRASION FOOT TOE 10/02/2013 ROGELIO BARON Ot 924.20 CONTUSION OF FOOT 10/02/2013 ROGELIO BARON Ot E916 STRUCK BY FALLING OBJECT 10/14/2013 DAMION CRAWFORD APRN Ot 724.2 LUMBAGO 01/29/2014 CRAWFORD, PETER J RELIGIOUS EDUCATOR Ot 599.0 URIN TRACT INFECTION NOS 01/29/2014 DAMION CRAWFORD RELIGIOUS EDUCATOR Ot 789.09 ABDOMINAL PAIN, OTHER SPECIFIED SITE 02/02/2014 TERRI ALEXANDER DO Ot 789.01 ABDOMINAL PAIN, RIGHT UPPER QUADRANT 06/28/2014 Ot 599.0 URIN TRACT INFECTION NOS 07/18/2014 Ot 789.05 10/16/2014 JEROME FRENCH, LAWANDA R Ot 715.36 11/16/2014 Ot 620.2 11/16/2014 Ot 719.47 11/16/2014 JEROME FRENCH, LAWANDA R Ot 780.99 11/16/2014 JEROME FRENCH, LAWANDA R Ot 784.49 11/16/2014 JEROME FRENCH, LAWANDA R Ot 790.29 11/16/2014 Ot 789.05 11/16/2014 JEROME FRENCH, LAWANDA R Ot 715.36 11/16/2014 ROGELIO BARON Ot 847.2 SPRAIN LUMBAR REGION 11/16/2014 ROGELIO BARON Ot 959.19 OTH INJURY OF OTHER SITES OF TRUNK 11/16/2014 ROGELIO BARON Ot E000.8 OTHER EXTERNAL CAUSE STATUS 11/16/2014 ROGELIO BARON Ot E013.2 ACTIVITIES INVOLVING VACUUMING 11/16/2014 ROGELIO BARON Ot E849.0 ACCIDENT IN HOME 11/16/2014 ROGELIO BARON Ot E885.9 FALL FROM SLIPPING, TRIPPING, OR STUMBLI 01/16/2015 Ot 789.01 01/16/2015 Ot 789.06 05/06/2015 Ot 719.47 05/06/2015 JEROME FRENCH, LAWANDA R Ot 780.99 05/06/2015 JEROME FRENCH, LAWANDA R Ot 784.49 05/06/2015 JEROME FRENCH, LAWANDA R Ot 790.29 05/06/2015 Ot 789.05 05/06/2015 JEROME FRENCH, LAWANDA R Ot 715.36 05/06/2015 Ot 789.01 05/06/2015 Ot 789.06 05/06/2015 DAMION CRAWFORD RELIGIOUS EDUCATOR Ot K52.9 NONINFECTIVE GASTROENTERITIS AND COLITIS 11/26/2015 CRAWFORD, PETER J RELIGIOUS EDUCATOR Ot N20.0 CALCULUS OF KIDNEY 11/26/2015 DAMION CRAWFORD RELIGIOUS EDUCATOR Ot N83.20 UNSPECIFIED OVARIAN CYSTS 11/26/2015 DAMION CRAWFORD RELIGIOUS EDUCATOR Ot R10.31 RIGHT LOWER QUADRANT PAIN 11/28/2015 Ot 719.47 JOINT PAIN- ANKLE 11/28/2015 JEROME FRENCH LAWANDA R Ot 780.99 OTHER GENERAL SYMPTOMS NOS 11/28/2015 JEROME FRENHC LAWANDA R Ot 784.49 OTHER VOICE AND RESONANCE DISORDERS 11/28/2015 JEROME FRENCH LAWANDA R Ot 790.29 OTHER ABNORMAL GLUCOSE 11/28/2015 Ot 789.05 ABDOMINAL PAIN, PERIUMBILIC 11/28/2015 JEROME FRENCH LAWANDA R Ot 715.36 LOC OSTEOARTH NOS-L/LEG 11/28/2015 Ot 789.01 ABDOMINAL PAIN, RIGHT UPPER QUADRANT 11/28/2015 Ot 789.06 ABDOMINAL PAIN, EPIGASTRIC 05/07/2016 Ot 719.47 JOINT PAIN- ANKLE 05/07/2016 JEROME FRENCH LAWANDA R Ot 780.99 OTHER GENERAL SYMPTOMS NOS 05/07/2016 JEROME FRENCH LAWANDA R Ot 784.49 OTHER VOICE AND RESONANCE DISORDERS 05/07/2016 JEROME FRENCH LAWANDA R Ot 790.29 OTHER ABNORMAL GLUCOSE 05/07/2016 Ot 789.05 ABDOMINAL PAIN, PERIUMBILIC 05/07/2016 JEROME FRENCH LAWANDA R Ot 715.36 LOC OSTEOARTH NOS-L/LEG 05/07/2016 Ot 789.01 ABDOMINAL PAIN, RIGHT UPPER QUADRANT 05/07/2016 Ot 789.06 ABDOMINAL PAIN, EPIGASTRIC 05/07/2016 DAMION CRAWFORD RELIGIOUS EDUCATOR Ot R11.2 NAUSEA WITH VOMITING, UNSPECIFIED 05/07/2016 DAMION CRAWFORD RELIGIOUS EDUCATOR Ot R19.7 DIARRHEA, UNSPECIFIED 05/10/2016 DAMION CRAWFORD RELIGIOUS EDUCATOR Ot R11.2 NAUSEA WITH VOMITING, UNSPECIFIED 05/10/2016 DAMION CRAWFORD RELIGIOUS EDUCATOR Ot R19.7 DIARRHEA, UNSPECIFIED 06/23/2016 ALEKSANDRA FRENCH, TIANA Greene Ot I88.0 NONSPECIFIC MESENTERIC LYMPHADENITIS 06/23/2016 TIANA LAKE MD Ot R10.31 RIGHT LOWER QUADRANT PAIN 06/25/2016 ALEKSANDRA MD, TIANA A Ot I88.0 NONSPECIFIC MESENTERIC LYMPHADENITIS 06/25/2016 ALEKSANDRA FRENCH, TIANA A Ot R10.31 RIGHT LOWER QUADRANT PAIN 07/27/2016 ALEKSANDRA FRENCH, TIANA A Ot I88.0 NONSPECIFIC MESENTERIC LYMPHADENITIS 07/27/2016 ALEKSANDRA FRENCH, TIANA A Ot R10.31 RIGHT LOWER QUADRANT PAIN 08/03/2016 JEROME FRENCH, LAWANDA R Ot R10.11 RIGHT UPPER QUADRANT PAIN 08/21/2016 LAWANDA CANO MD R Ot R10.11 RIGHT UPPER QUADRANT PAIN 09/02/2016 JEROME FRENCH, LAWANDA R Ot R10.11 RIGHT UPPER QUADRANT PAIN 09/03/2016 JEROME FRENCH, LAWANDA R Ot R10.11 RIGHT UPPER QUADRANT PAIN 09/09/2016 JEROME FRENCH, LAWANDA R Ot R10.11 RIGHT UPPER QUADRANT PAIN 09/22/2016 ROGELIO BARON Ot M54.5 LOW BACK PAIN 09/22/2016 ROGELIO BARON Ot S39.012A STRAIN OF MUSCLE, FASCIA AND TENDON OF L 09/22/2016 ROGELIO BARON Ot X50.9XXA OTHER AND UNSPECIFIED OVREXRTN OR STRNOU 09/22/2016 ROGELIO BARON Ot Y99.8 OTHER EXTERNAL CAUSE STATUS 10/22/2016 JEROME FRENCH, LAWANDA R Ot R10.11 RIGHT UPPER QUADRANT PAIN 11/05/2016 DAMION CRAWFORD APRN Ot R11.2 NAUSEA WITH VOMITING, UNSPECIFIED 11/05/2016 DAMION CRAWFORD APRN Ot R19.7 DIARRHEA, UNSPECIFIED Procedures There is no data. Results Test Result Range Comprehensive metabolic panel - 11/26/15 18:18 Serum or plasma sodium measurement (moles/volume) 137 mmol/L 135-145 Serum or plasma potassium measurement (moles/volume) 3.8 mmol/L 3.6-5.0 Serum or plasma chloride measurement (moles/volume) 105 mmol/L 98-107 Carbon dioxide 25 mmol/L 21-32 Serum or plasma anion gap determination (moles/volume) 7 mmol/L 5-14 Serum or plasma urea nitrogen measurement (mass/volume) 6 mg/dL 7-18 Serum or plasma creatinine measurement (mass/volume) 0.84 mg/dL 0.60-1.30 Serum or plasma urea nitrogen/creatinine mass ratio 7 NRG Serum or plasma creatinine measurement with calculation of estimated glomerular filtration rate > NRG Serum or plasma glucose measurement (mass/volume) 86 mg/dL 70-105 Serum or plasma calcium measurement (mass/volume) 9.2 mg/dL 8.5-10.1 Serum or plasma total bilirubin measurement (mass/volume) 0.3 mg/dL 0.1-1.0 Serum or plasma alkaline phosphatase measurement (enzymatic activity/volume) 78 U/L 40-136 Serum or plasma aspartate aminotransferase measurement (enzymatic activity/ volume) 16 U/L 5-34 Serum or plasma alanine aminotransferase measurement (enzymatic activity/volume ) 9 U/L 0-55 Serum or plasma protein measurement (mass/volume) 7.2 g/dL 6.4-8.2 Serum or plasma albumin measurement (mass/volume) 4.0 g/dL 3.2-4.5 Urine beta human chorionic gonadotropin (hCG) measurement - 11/26/15 19:00 Urine beta human chorionic gonadotropin (hCG) measurement NEGATIVE NEGATIVE Complete urinalysis with reflex to culture - 11/26/15 19:00 Urine color determination YELLOW NRG Urine clarity determination CLEAR NRG Urine pH measurement by test strip 6 5-9 Specific gravity of urine by test strip 1.020 1.016- 1.022 Urine protein assay by test strip, semi-quantitative 1+ NEGATIVE Urine glucose detection by automated test strip NEGATIVE NEGATIVE Erythrocytes detection in urine sediment by light microscopy 1+ NEGATIVE Urine ketones detection by automated test strip NEGATIVE NEGATIVE Urine nitrite detection by test strip NEGATIVE NEGATIVE Urine total bilirubin detection by test strip NEGATIVE NEGATIVE Urine urobilinogen measurement by automated test strip (mass/volume) 1 mg/dL NORMAL Urine leukocyte esterase detection by dipstick 1+ NEGATIVE Automated urine sediment erythrocyte count by microscopy (number/high power field) NONE NRG Automated urine sediment leukocyte count by microscopy (number/high power field ) [HPF] NRG Bacteria detection in urine sediment by light microscopy MODERATE NRG Squamous epithelial cells detection in urine sediment by light microscopy 10-25 NRG Crystals detection in urine sediment by light microscopy NONE NRG Casts detection in urine sediment by light microscopy NONE NRG Mucus detection in urine sediment by light microscopy NEGATIVE NRG Complete urinalysis with reflex to culture NO NRG Complete blood count (CBC) with automated white blood cell (WBC) differential - 11/26/15 19:08 Blood leukocytes automated count (number/volume) 10.1 10*3/uL 4.3-11.0 Blood erythrocytes automated count (number/volume) 4.58 10*6/uL 4.35-5.85 Venous blood hemoglobin measurement (mass/volume) 12.9 g/dL 11.5-16.0 Blood hematocrit (volume fraction) 39 % 35-52 Automated erythrocyte mean corpuscular volume 86 [foz_us] 80-99 Automated erythrocyte mean corpuscular hemoglobin (mass per erythrocyte) 28 pg 25-34 Automated erythrocyte mean corpuscular hemoglobin concentration measurement ( mass/volume) 33 g/dL 32-36 Automated erythrocyte distribution width ratio 15.0 % 10.0-14.5 Automated blood platelet count (count/volume) 213 10*3/uL 130-400 Automated blood platelet mean volume measurement 11.0 [foz_us] 7.4-10.4 Automated blood neutrophils/100 leukocytes 64 % 42-75 Automated blood lymphocytes/100 leukocytes 22 % 12-44 Blood monocytes/100 leukocytes 10 % 0-12 Automated blood eosinophils/100 leukocytes 4 % 0-10 Automated blood basophils/100 leukocytes 1 % 0-10 Blood neutrophils automated count (number/volume) 6.5 10*3 1.8-7.8 Blood lymphocytes automated count (number/volume) 2.2 10*3 1.0-4.0 Blood monocytes automated count (number/volume) 1.0 10*3 0.0-1.0 Automated eosinophil count 0.4 10*3/uL 0.0-0.3 Automated blood basophil count (count/volume) 0.1 10*3/uL 0.0-0.1 Complete blood count (CBC) with automated white blood cell (WBC) differential - 05/07/16 12:50 Blood leukocytes automated count (number/volume) 11.7 10*3/uL 4.3-11.0 Blood erythrocytes automated count (number/volume) 4.77 10*6/uL 4.35-5.85 Venous blood hemoglobin measurement (mass/volume) 13.4 g/dL 11.5-16.0 Blood hematocrit (volume fraction) 41 % 35-52 Automated erythrocyte mean corpuscular volume 86 [foz_us] 80-99 Automated erythrocyte mean corpuscular hemoglobin (mass per erythrocyte) 28 pg 25-34 Automated erythrocyte mean corpuscular hemoglobin concentration measurement ( mass/volume) 33 g/dL 32-36 Automated erythrocyte distribution width ratio 14.3 % 10.0-14.5 Automated blood platelet count (count/volume) 210 10*3/uL 130-400 Automated blood platelet mean volume measurement 10.2 [foz_us] 7.4-10.4 Automated blood neutrophils/100 leukocytes 89 % 42-75 Automated blood lymphocytes/100 leukocytes 5 % 12-44 Blood monocytes/100 leukocytes 5 % 0-12 Automated blood eosinophils/100 leukocytes 0 % 0-10 Automated blood basophils/100 leukocytes 0 % 0-10 Blood neutrophils automated count (number/volume) 10.5 10*3 1.8-7.8 Blood lymphocytes automated count (number/volume) 0.6 10*3 1.0-4.0 Blood monocytes automated count (number/volume) 0.6 10*3 0.0-1.0 Automated eosinophil count 0.0 10*3/uL 0.0-0.3 Automated blood basophil count (count/volume) 0.0 10*3/uL 0.0-0.1 Blood manual differential performed detection - 05/07/16 12:50 Blood monocytes/100 leukocytes 5 % NRG Manual blood segmented neutrophils/100 leukocytes 86 % NRG Blood band neutrophils/100 leukocytes 3 % NRG Manual blood lymphocytes/100 leukocytes 5 % NRG Manual eosinophils/100 leukocytes in nose 1 % NRG Manual blood basophils/100 leukocytes 0 % NRG Blood erythrocyte morphology finding identification NORMAL [facility] Comprehensive metabolic panel - 05/07/16 12:50 Serum or plasma sodium measurement (moles/volume) 139 mmol/L 135-145 Serum or plasma potassium measurement (moles/volume) 3.8 mmol/L 3.6-5.0 Serum or plasma chloride measurement (moles/volume) 106 mmol/L 98-107 Carbon dioxide 23 mmol/L 21-32 Serum or plasma anion gap determination (moles/volume) 10 mmol/L 5-14 Serum or plasma urea nitrogen measurement (mass/volume) 9 mg/dL 7-18 Serum or plasma creatinine measurement (mass/volume) 0.81 mg/dL 0.60-1.30 Serum or plasma urea nitrogen/creatinine mass ratio 11 NRG Serum or plasma creatinine measurement with calculation of estimated glomerular filtration rate > NRG Serum or plasma glucose measurement (mass/volume) 112 mg/dL 70-105 Serum or plasma calcium measurement (mass/volume) 8.5 mg/dL 8.5-10.1 Serum or plasma total bilirubin measurement (mass/volume) 0.4 mg/dL 0.1-1.0 Serum or plasma alkaline phosphatase measurement (enzymatic activity/volume) 79 U/L 40-136 Serum or plasma aspartate aminotransferase measurement (enzymatic activity/ volume) 16 U/L 5-34 Serum or plasma alanine aminotransferase measurement (enzymatic activity/volume ) 15 U/L 0-55 Serum or plasma protein measurement (mass/volume) 7.2 g/dL 6.4-8.2 Serum or plasma albumin measurement (mass/volume) 3.9 g/dL 3.2-4.5 Complete urinalysis with reflex to culture - 06/23/16 19:40 Urine color determination YELLOW NRG Urine clarity determination CLEAR NRG Urine pH measurement by test strip 6.5 5-9 Specific gravity of urine by test strip 1.020 1.016- 1.022 Urine protein assay by test strip, semi-quantitative NEGATIVE NEGATIVE Urine glucose detection by automated test strip NEGATIVE NEGATIVE Erythrocytes detection in urine sediment by light microscopy NEGATIVE NEGATIVE Urine ketones detection by automated test strip NEGATIVE NEGATIVE Urine nitrite detection by test strip NEGATIVE NEGATIVE Urine total bilirubin detection by test strip NEGATIVE NEGATIVE Urine urobilinogen measurement by automated test strip (mass/volume) NORMAL NORMAL Urine leukocyte esterase detection by dipstick NEGATIVE NEGATIVE Automated urine sediment erythrocyte count by microscopy (number/high power field) NONE NRG Automated urine sediment leukocyte count by microscopy (number/high power field ) NONE NRG Bacteria detection in urine sediment by light microscopy FEW NRG Squamous epithelial cells detection in urine sediment by light microscopy 2-5 NRG Crystals detection in urine sediment by light microscopy NONE NRG Casts detection in urine sediment by light microscopy NONE NRG Mucus detection in urine sediment by light microscopy SMALL NRG Complete urinalysis with reflex to culture NO NRG Complete blood count (CBC) with automated white blood cell (WBC) differential - 06/23/16 19:45 Blood leukocytes automated count (number/volume) 9.2 10*3/uL 4.3-11.0 Blood erythrocytes automated count (number/volume) 4.60 10*6/uL 4.35-5.85 Venous blood hemoglobin measurement (mass/volume) 12.9 g/dL 11.5-16.0 Blood hematocrit (volume fraction) 39 % 35-52 Automated erythrocyte mean corpuscular volume 85 [foz_us] 80-99 Automated erythrocyte mean corpuscular hemoglobin (mass per erythrocyte) 28 pg 25-34 Automated erythrocyte mean corpuscular hemoglobin concentration measurement ( mass/volume) 33 g/dL 32-36 Automated erythrocyte distribution width ratio 14.0 % 10.0-14.5 Automated blood platelet count (count/volume) 207 10*3/uL 130-400 Automated blood platelet mean volume measurement 10.8 [foz_us] 7.4-10.4 Automated blood neutrophils/100 leukocytes 62 % 42-75 Automated blood lymphocytes/100 leukocytes 27 % 12-44 Blood monocytes/100 leukocytes 8 % 0-12 Automated blood eosinophils/100 leukocytes 3 % 0-10 Automated blood basophils/100 leukocytes 0 % 0-10 Blood neutrophils automated count (number/volume) 5.7 10*3 1.8-7.8 Blood lymphocytes automated count (number/volume) 2.4 10*3 1.0-4.0 Blood monocytes automated count (number/volume) 0.7 10*3 0.0-1.0 Automated eosinophil count 0.3 10*3/uL 0.0-0.3 Automated blood basophil count (count/volume) 0.0 10*3/uL 0.0-0.1 Comprehensive metabolic panel - 06/23/16 19:45 Serum or plasma sodium measurement (moles/volume) 143 mmol/L 135-145 Serum or plasma potassium measurement (moles/volume) 3.9 mmol/L 3.6-5.0 Serum or plasma chloride measurement (moles/volume) 109 mmol/L 98-107 Carbon dioxide 20 mmol/L 21-32 Serum or plasma anion gap determination (moles/volume) 14 mmol/L 5-14 Serum or plasma urea nitrogen measurement (mass/volume) 8 mg/dL 7-18 Serum or plasma creatinine measurement (mass/volume) 0.82 mg/dL 0.60-1.30 Serum or plasma urea nitrogen/creatinine mass ratio 10 NRG Serum or plasma creatinine measurement with calculation of estimated glomerular filtration rate > NRG Serum or plasma glucose measurement (mass/volume) 72 mg/dL 70-105 Serum or plasma calcium measurement (mass/volume) 8.7 mg/dL 8.5-10.1 Serum or plasma total bilirubin measurement (mass/volume) 0.2 mg/dL 0.1-1.0 Serum or plasma alkaline phosphatase measurement (enzymatic activity/volume) 103 U/L 40-136 Serum or plasma aspartate aminotransferase measurement (enzymatic activity/ volume) 18 U/L 5-34 Serum or plasma alanine aminotransferase measurement (enzymatic activity/volume ) 15 U/L 0-55 Serum or plasma protein measurement (mass/volume) 7.2 g/dL 6.4-8.2 Serum or plasma albumin measurement (mass/volume) 4.0 g/dL 3.2-4.5 Lipase - 06/23/16 19:45 Lipase 11 U/L 8-78 Encounters ACCT No. Visit Date/Time Discharge Status Pt. Type Provider Facility Loc./Unit Complaint [id number] 09/22/2016 17:29:00 09/22/2016 17:54:00 DIS Emergency ROGELIO BARON [facility] ER BACK PAIN [id number] 07/30/2016 06:44:00 07/30/2016 23:59:59 CLS Outpatient LAWANDA CANO MD [facility] RAD RUQ ABD PAIN [id number] 06/23/2016 19:32:00 06/23/2016 21:16:00 DIS Emergency TIANA LAKE MD [facility] ER ABD PAIN [id number] 05/07/2016 12:26:00 05/07/2016 15:33:00 DIS Outpatient DAMION CRAWFORD APRN [facility] ER VOMITING, DIARRHEA [id number] 11/26/2015 17:23:00 11/26/2015 21:17:00 DIS Emergency DAMION CRAWFORD APRN [facility] ER ABD PAIN [id number] 05/06/2015 13:24:00 05/06/2015 15:47:00 DIS Emergency DAMION CRAWFORD APRN [facility] ER VOMITING/ABD PAIN [id number] 11/16/2014 17:09:00 11/16/2014 19:22:00 DIS Emergency ROGELIO BARON [facility] ER BACK PAIN FROM FALL/ TRIPPED OVER VACUUM CORD FELL [id number] 10/17/2014 17:32:00 10/17/2014 23:59:59 CLS Outpatient CARL ZUÑIGA RELIGIOUS EDUCATOR [facility] QUICK [id number] 09/24/2014 15:10:00 09/24/2014 23:59:59 CLS Outpatient LAWANDA CANO MD [facility] RAD DIFFICULTY ON EXTENSION, FALL W/PAINFUL L KNEE [id number] 02/02/2014 01:48:00 02/02/2014 05:09:00 DIS Emergency TERRI ALEXANDER DO [facility] ER ABD PAIN [id number] 01/29/2014 15:05:00 01/29/2014 16:00:00 DIS Emergency DAMION CRAWFORD APRN [facility] ER RT SIDED PAIN [id number] 01/07/2014 17:25:00 01/07/2014 23:59:59 CLS Outpatient [id number] 10/14/2013 19:26:00 10/14/2013 20:06:00 DIS Emergency DAMION CRAWFORD APRN [facility] ER LOWER BACK PAIN [id number] 10/02/2013 21:32:00 10/02/2013 22:42:00 DIS Emergency ROGELIO BARON [facility] ER R FOOT INJ [id number] 07/06/2013 18:52:00 07/06/2013 20:20:00 DIS Emergency ROGELIO BARON [facility] ER L HAND PAIN [id number] 06/28/2013 14:24:00 06/28/2013 23:59:59 CLS Outpatient LAWANDA CANO MD [facility] LAB HYPERGLYCEIMA [id number] 05/27/2013 01:31:00 05/27/2013 03:39:00 DIS Emergency TERRI ALEXANDER DO [facility] ER RIGHT ABDOMINAL PAIN [id number] 05/01/2013 16:45:00 05/01/2013 23:59:59 CLS Outpatient [id number] 03/10/2013 19:46:00 03/10/2013 20:40:00 DIS Emergency DAMION CRAWFORD APRN [facility] ER TWISTED RIGHT ANKLE [id number] 03/08/2013 16:18:00 03/08/2013 23:59:59 CLS Outpatient JEROME FRENCH, LAWANDA Briceno [facility] LAB COLD,LOWER VOICE [id number] 12/23/2012 19:08:00 12/23/2012 23:59:59 CLS Outpatient [id number] 12/11/2012 14:45:00 12/11/2012 17:07:00 DIS Emergency KELLY FRENCH, ALEAH Suarez [facility] ER PT FELL AND HURT KNEE [id number] 12/25/2014 07:00:00 Document Registration [id number] 06/27/2014 11:00:00 Document Registration [id number] 06/26/2014 14:27:00 Document Registration [id number] 05/27/2012 04:30:00 Document Registration [id number] 01/24/2012 15:50:00 Document Registration [id number] 10/31/2011 15:28:00 Document Registration [id number] 09/07/2011 20:18:00 Document Registration [id number] 07/19/2011 15:34:00 Document Registration [id number] 06/26/2011 16:32:00 Document Registration [id number] 12/10/2010 16:50:00 Document Registration [id number] 05/14/2010 17:16:00 Document Registration [id number] 11/12/2009 23:38:00 Document Registration [id number] 10/23/2009 10:09:00 Document Registration [id number] 10/08/2009 15:04:00 Document Registration
[2017-08-11] MEDS ORDERED: CYCL5TAB PO (16:26)
--- NOTE | 2017-08-11 16:26 | ED Fall/Injury ---
General Chief Complaint: General Problems/Pain Stated Complaint: FALL THRU POOL DECK - L ARM PAIN Source: patient Exam Limitations: no limitations History of Present Illness Date Seen by Provider: Aug 11, 2017 Time Seen by Provider: 16:23 Initial Comments brought to ER by her mother with reports of having fallen through a rotten wooden pool deck at home.he fell about 4 feet to the ground. She complains of pain to the left forearm, left upper arm, she has a slight headache and some neck pain. No chest abdomen pelvis or lower extremity pain or injury. No lower back pain. She did hit her head but she did not lose consciousness and she recalls all events. No nausea or vomiting. Occurred: just prior to arrival Severity: moderate Injuries/Pain Location: head, neck, upper extremity Allergies and Home Medications Allergies Coded Allergies: No Known Drug Allergies (Unverified , 05/07/16) Home Medications Cyclobenzaprine HCl 10 Mg Tablet, 10 MG PO Q8H PRN for SPASMS Prescribed by: ROGELIO CEE on 09/22/16 174 Cyclobenzaprine HCl 5 Mg Tablet, 5 MG PO TID PRN for PAIN-MILD TO MODERATE Prescribed by: DAMION CRAWFORD on 08/11/17 1626 Ibuprofen 800 Mg Tablet, 800 MG PO Q8H PRN for PAIN Prescribed by: ROGELIO CEE on 09/22/16 1743 Prednisone 20 Mg Tab, 40 MG PO DAILY Prescribed by: ROGELIO CEE on 09/22/16 174 Tramadol HCl 50 Mg Tablet, 1-2 MG PO Q6H PRN for PAIN Prescribed by: TIANA LAKE on 06/23/162110 Patient Home Medication List Home Medication List Reviewed: Yes Review of Systems Constitutional: see HPI Eyes: No Symptoms Reported Ears, Nose, Mouth, Throat: no symptoms reported Respiratory: no symptoms reported Cardiovascular: no symptoms reported Genitourinary: no symptoms reported Musculoskeletal: see HPI, neck pain Skin: no symptoms reported Psychiatric/Neurological: No Symptoms Reported Past Wlcnvua-Aokkmf-Ltvvow Hx Patient Social History Recent Foreign Travel: No Contact w/Someone Who Travel: No Recent Hopitalizations: No Immunizations Up To Date Tetanus Booster (TDap): Less than 5yrs Seasonal Allergies Seasonal Allergies: No Past Medical History Surgeries: No Respiratory: No Cardiac: No Neurological: No Reproductive Disorders: No Sexually Transmitted Disease: No HIV/AIDS: No Gastrointestinal: No Musculoskeletal: No Cancer: No Psychosocial: No Integumentary: No Blood Disorders: No Adverse Reaction/Blood Tranf: No Family Medical History ANXIETY 19 MOTHER Asthma 19 MOTHER (COPD) BI-POLAR 19 MOTHER BI-POLAR 19 MOTHER FH: heart attack Hypertension 19 MOTHER No Pertinent Family Hx Physical Exam Vital Signs Vital Signs - First Documented 08/11/17 16:06 Temp 97.6 Pulse 103 Resp 18 B/P (MAP) 141/86 (104) O2 Delivery Room Air Capillary Refill : General Appearance: WD/WN, no apparent distress, obese, other (smiling, talkative, in no distress. Ambulatory to room9 without use of assistive device.) HEENT: PERRL/EOMI, normal ENT inspection, TMs normal Neck: non-tender, full range of motion Cardiovascular: regular rate, rhythm, no murmur Respiratory: chest non-tender, lungs clear, normal breath sounds, no respiratory distress, no accessory muscle use Gastrointestinal: normal bowel sounds, non tender, soft; No tenderness Extremities: other (limited range of motion to the left upper extremity due to pain but there is no deformity erythema ecchymosis or abrasion. She is neurovascularly intact at the fingertips.) Neurologic/Psychiatric: alert, normal mood/affect, oriented x 3 Skin: normal color, warm/dry Bude Coma Score Best Eye Response: (4) Open Spontaneously Best Verbal Response: (5) Oriented Best Motor Response: (6) Obeys Commands Wilian Total: 15 Progress/Results/Core Measures My Orders Orders - DAMION CRAWFORD APRN Ct Head/Cervical Spine Wo (08/11/17 16:22) Humerus, Left, 2 Views (08/11/17 16:22) Forearm, Left, 2 Views (08/11/17 16:22) Ketorolac Injection (Toradol Injection) (08/11/17 16:45) Medications Given in ED Current Medications Medications Dose Ordered Sig/Nicko Route Start Time Stop Time Status Last Admin Dose Admin Ketorolac Tromethamine 60 mg ONCE ONCE IM 08/11/17 16:45 08/11/17 16:46 DC 08/11/17 16:43 60 MG Vital Signs/I&O 08/11/17 08/11/17 16:06 16:43 Temp 97.6 97.6 Pulse 103 Resp 18 B/P (MAP) 141/86 (104) O2 Delivery Room Air Departure Communication (Admissions) 1727-rigid cervical collar removed at this time. Impression Primary Impression: Contusion Additional Impression: Cervical sprain Disposition: 01 HOME, SELF-CARE Condition: Stable Departure-Patient Inst. Decision time for Depature: 16:25 Referrals: LAWANDA CANO MD (PCP/Family) Primary Care Physician Patient Instructions: Contusion (DC) Add. Discharge Instructions: 1. Tylenol and Motrin as needed for pain at home 2. Muscle relaxers as directed 3. See your doctor later this week All discharge instructions reviewed with patient and/or family. Voiced understanding. Scripts Cyclobenzaprine HCl (Cyclobenzaprine HCl) 5 Mg Tablet 5 MG PO TID PRN for PAIN-MILD TO MODERATE, #15 TAB Prov: DAMION CRAWFORD APRN 08/11/17 DAMION CRAWFORD APRN Aug 11, 2017 16:26
[2017-08-11] MEDS ORDERED: KETOROLAC 60 MG/2 ML VIAL IM ONE (16:45)
--- NOTE | 2017-08-11 17:08 | Diagnostic Imaging Report ---
PROCEDURE: CT head and CT cervical spine without contrast. TECHNIQUE: Multiple contiguous axial images were obtained through the brain and cervical spine without the use of intravenous contrast. Sagittal and coronal reformations through the cervical spine were then performed. INDICATION: Fall, head and neck pain. C-collar in place. COMPARISON: None. FINDINGS: CT head: The ventricles and cortical sulci appear age-appropriate. There is no midline shift or mass effect. No acute intracranial hemorrhage is seen. No CT evidence of acute territorial ischemia is seen. The calvarium appears intact. There is mild mucosal thickening in the right maxillary sinus and a moderate-sized mucus retention cyst in the left maxillary sinus. CT cervical spine: There is reversal of the cervical lordosis centered at C5-C6 with minimal degenerative changes at that level. No acute fracture or malalignment is identified. No hyperdense fluid collections or osseous fragments are seen in the spinal canal. The vertebral body heights are preserved. The disc heights are generally preserved. The prevertebral soft tissues are unremarkable. IMPRESSION: 1. No acute intracranial hemorrhage or calvarium fracture seen. 2. Minimal degenerative changes in the cervical spine with no acute osseous abnormality seen. Reversal of the cervical lordosis may be positional. Dictated by: Dictated on workstation # [id number]
--- NOTE | 2017-08-11 17:25 | Diagnostic Imaging Report ---
INDICATION: Pain after falling through porch. TECHNIQUE: 2 views of the left forearm. CORRELATION STUDY: None FINDINGS: The radius and ulna have an unremarkable appearance. The visualized portions of the elbow and wrist are unremarkable. Ulna minus variant is present. Soft tissues are unremarkable. IMPRESSION: 1. Negative for acute bony abnormality of the forearm. Dictated by: Dictated on workstation # [id number]
--- NOTE | 2017-08-11 17:27 | Diagnostic Imaging Report ---
INDICATION: Fell through porch, left arm pain. TECHNIQUE: Two views of the left humerus,5:24 p.m. CORRELATION STUDY: None. FINDINGS: The humerus has an unremarkable appearance. The visualized portions of the shoulder and elbow are unremarkable. Soft tissues in particular have limited assessment but overall appear generally unremarkable. IMPRESSION: Negative for acute bony abnormality of the humerus. Dictated by: Dictated on workstation # [id number]
[2017-08-11 17:45] VITALS: BP 140/84
[2017-08-11] MEDS ORDERED: TETANUS,DIPTH,PERTUSS P/F (BOOSTRIX) 0.5 ML VIAL IM ONE (17:45)
== END 2017-08-11 17:45 | disposition home or self-care (01) ==
LOC: EDUNIT# 15:55 → ER 15:56
DX: S50.12XA Contusion of left forearm, initial encounter (principal); S13.4XXA Sprain of ligaments of cervical spine, initial encounter; Z79.52 Long term (current) use of systemic steroids; Z82.49 Family history of ischemic heart disease and other diseases of the circulatory system; W17.89XA Other fall from one level to another, initial encounter; Y92.009 Unspecified place in unspecified non-institutional (private) residence as the place of occurrence of the external cause
CPT/HCPCS: 70450; 72125; 73060; 73090; 90471; 90715; 96372

== ENCOUNTER 2018-03-01 19:03 | Emergency (ER) | payer MEDICARE, MEDICAID ==
[~2018-03-01] VITALS: Ht 177.8 cm; Wt 138.3 kg
[~2018-03-01 19:03] MED LIST changes: +CYCL5TAB PO
[2018-03-01] MEDS ORDERED: AMOX-358 PO (20:19)
--- NOTE | 2018-03-01 20:19 | ED EENT ---
History of Present Illness General Chief Complaint: Dental Problems/Pain Stated Complaint: EAR/JAW PAIN Source: patient Exam Limitations: no limitations History of Present Illness Date Seen by Provider: Mar 01, 2018 Time Seen by Provider: 20:17 Initial Comments Patient is a 27-year-old female who presents to the emergency room with complaints of left lower dental pain. She has an appointment tomorrow morning at [facility] but just could not wait any longer due to pain. She denies trying anything daai-wnw-avjfxya for pain relief. Timing/Duration: other (ongoing) Location: mouth, dental Prearrival Treatment: no prearrival treatment Associated Symptoms: tooth pain Allergies and Home Medications Allergies Coded Allergies: No Known Drug Allergies (Unverified , 05/07/16) Home Medications Cyclobenzaprine HCl 10 Mg Tablet, 10 MG PO Q8H PRN for SPASMS Prescribed by: ROGELIO CEE on 09/22/16 174 Cyclobenzaprine HCl 5 Mg Tablet, 5 MG PO TID PRN for PAIN-MILD TO MODERATE Prescribed by: DAMION CRAWFORD on 08/11/17 1626 Ibuprofen 800 Mg Tablet, 800 MG PO Q8H PRN for PAIN Prescribed by: ROGELIO CEE on 09/22/16 1743 Prednisone 20 Mg Tab, 40 MG PO DAILY Prescribed by: ROGELIO CEE on 09/22/16 1743 Tramadol HCl 50 Mg Tablet, 1-2 MG PO Q6H PRN for PAIN Prescribed by: TIANA LAKE on 06/23/16 2111 Past Yaklojd-Msahoe-Mgtacz Hx Patient Social History Recent Foreign Travel: No Contact w/Someone Who Travel: No Recent Hopitalizations: No Immunizations Up To Date Tetanus Booster (TDap): Less than 5yrs Seasonal Allergies Seasonal Allergies: No Past Medical History Surgeries: No Respiratory: No Cardiac: No Neurological: No Reproductive Disorders: No Sexually Transmitted Disease: No HIV/AIDS: No Gastrointestinal: No Musculoskeletal: No Cancer: No Psychosocial: No Integumentary: No Blood Disorders: No Adverse Reaction/Blood Tranf: No Family Medical History ANXIETY 19 MOTHER Asthma 19 MOTHER (COPD) BI-POLAR 19 MOTHER BI-POLAR 19 MOTHER FH: heart attack Hypertension 19 MOTHER No Pertinent Family Hx Physical Exam Vital Signs Vital Signs - First Documented 03/01/18 20:03 Temp 97.2 Pulse 90 Resp 16 B/P (MAP) 149/92 (111) Pulse Ox 100 O2 Delivery Room Air Height, Weight, BMI Height: 5'10.00" Weight: 310lbs. oz. 140.779025ml; BMI Method:Stated Progress/Results/Core Measures Results/Orders Vital Signs/I&O 03/01/18 20:03 Temp 97.2 Pulse 90 Resp 16 B/P (MAP) 149/92 (111) Pulse Ox 100 O2 Delivery Room Air Departure Impression Primary Impression: Dental caries Additional Impression: Abscessed tooth Disposition: HOME, SELF-CARE Condition: Stable/Unchanged Departure-Patient Inst. Decision time for Depature: 20:18 Referrals: LAWANDA CANO MD (PCP/Family) Primary Care Physician Patient Instructions: Dental Pain (DC), Tooth Abscess (DC) Add. Discharge Instructions: Take medications as directed. You may use ibuprofen and Tylenol as directed by the bottle for pain relief. Srmg-ajg-icetoir topical medications like Orajel might also be beneficial and pain relief. Keep your appointment for tomorrow morning as previously scheduled. Return back to the emergency room for any worsening symptoms or concerns as needed. All discharge instructions reviewed with patient and/or family. Voiced understanding. Scripts Amoxicillin/Potassium Clav (Augmentin 875-125 Tablet) 1 Each Tablet 1 EACH PO BID for 7 Days, #14 TAB Prov: JETT PORTILLO 03/01/18 JETT PORTILLO Mar 01, 2018 20:19
[2018-03-01] MEDS ORDERED: RX-HYDROCODONE/APAP 5/325 MG #4 TAB PK PO PRN (20:30)
[2018-03-01] MEDS ORDERED: HYDROcodone/APAP 5 MG/325 MG (LORTAB) TAB PO ONE (20:30)
[2018-03-01] MEDS ORDERED: AUGMENTIN 875 MG TAB (AMOXICILLIN/CLAVULANATE) ONE (20:44)
[2018-03-01 21:00] VITALS: BP 143/92
[2018-03-02] MEDS ORDERED: AUGMENTIN 875 MG TAB (AMOXICILLIN/CLAVULANATE) PO SCH (07:00)
== END 2018-03-01 21:00 | disposition home or self-care (01) ==
LOC: EDUNIT# 19:03 → ER 19:04
DX: K02.9 Dental caries, unspecified (principal); K04.7 Periapical abscess without sinus
CPT/HCPCS: 99283

== ENCOUNTER 2018-07-15 16:17 | Emergency (ER) | payer MEDICARE, MEDICAID ==
[~2018-07-15] VITALS: Ht 177.8 cm; Wt 138.3 kg
[~2018-07-15 16:17] MED LIST changes: +AMOX-358 PO
--- OUTSIDE RECORDS SUMMARY | 2018-07-15 16:21 | XMS REPORT ---
Author Author TONIO ORTEGA [facility] Address Unknown Care Team Providers Care Hand Glove Cleaner Name Role Phone TONIO ORTEGA Unavailable PROBLEMS Unknown Problems ALLERGIES No Information ENCOUNTERS Encounter Location Date Diagnosis [facility] [address] [id number] [place], [place] [id number] Feb, Dental examination Z01.20 and Caries K02.9 IMMUNIZATIONS No Known Immunizations SOCIAL HISTORY Never Assessed REASON FOR VISIT vahid/ PLAN OF CARE Activity Details Follow Up prn Reason:hygiene VITAL SIGNS MEDICATIONS Medication Instructions Dosage Frequency Start Date End Date Duration Status Amoxicillin 500 mg Orally every 8 hrs 1 capsule 8h Feb, 7 days Active RESULTS No Results PROCEDURES Procedure Date Ordered Result Body Site COMP ORAL EVALUATION - NEW/EST PT Mar 02, 2018 INTRAORL-PERIAPICAL 1 FILM [id number] Mar 02, 2018 BITEWINGS - FOUR FILMS Mar 02, 2018 INTRAORL-PERIAPICAL EA ADD FILM Mar 02, 2018 PANORAMIC FILM SEE ALSO CODE [id number] Mar 02, 2018 INTRAORL-PERIAPICAL EA ADD FILM Mar 02, 2018 INTRAORL-PERIAPICAL EA ADD FILM Mar 02, 2018 INTRAORL-PERIAPICAL EA ADD FILM Mar 02, 2018 INTRAORL-PERIAPICAL EA ADD FILM Mar 02, 2018 INSTRUCTIONS MEDICATIONS ADMINISTERED No Known Medications MEDICAL (GENERAL) HISTORY Type Description Date Surgical History No Surgical history information
--- OUTSIDE RECORDS SUMMARY | 2018-07-15 16:23 | XMS REPORT | Continuity of Care Document ---
Author Author [facility] Organization [facility] Address Unknown Phone Unavailable Allergies Active Description Code Type Severity Reaction Onset Reported/Identified Relationship to Patient Clinical Status Yes hydrocodone [id number] Drug Allergy Unknown NAUSEA 06/26/2014 Yes No Known Drug Allergies [id number] Drug Allergy Unknown N/A 05/07/2016 Medications There [...] Ot 724.2 LUMBAGO 01/29/2014 CRAWFORD, PETER J ANTHROPOLOGY DEPARTMENT CHAIR Ot 599.0 URIN TRACT INFECTION NOS 01/29/2014 DAMION CRAWFORD ANTHROPOLOGY DEPARTMENT CHAIR Ot 789.09 ABDOMINAL PAIN, OTHER SPECIFIED SITE [...] 789.01 05/06/2015 Ot 789.06 05/06/2015 DAMION CRAWFORD ANTHROPOLOGY DEPARTMENT CHAIR Ot K52.9 NONINFECTIVE GASTROENTERITIS AND COLITIS 11/26/2015 CRAWFORD, PETER J ANTHROPOLOGY DEPARTMENT CHAIR Ot N20.0 CALCULUS OF KIDNEY 11/26/2015 DAMION CRAWFORD ANTHROPOLOGY DEPARTMENT CHAIR Ot N83.20 UNSPECIFIED OVARIAN CYSTS 11/26/2015 DAMION CRAWFORD ANTHROPOLOGY DEPARTMENT CHAIR Ot R10.31 RIGHT LOWER QUADRANT PAIN 11/28/2015 Ot 719.47 JOINT PAIN- ANKLE 11/28/2015 JEROME FRENCH LAWANDA R Ot 780.99 OTHER GENERAL SYMPTOMS NOS 11/28/2015 JEROME FRENCH LAWANDA R Ot 784.49 OTHER [...] 789.06 ABDOMINAL PAIN, EPIGASTRIC 05/07/2016 DAMION CRAWFORD ANTHROPOLOGY DEPARTMENT CHAIR Ot R11.2 NAUSEA WITH VOMITING, UNSPECIFIED 05/07/2016 DAMION CRAWFORD ANTHROPOLOGY DEPARTMENT CHAIR Ot R19.7 DIARRHEA, UNSPECIFIED 05/10/2016 DAMION CRAWFORD ANTHROPOLOGY DEPARTMENT CHAIR Ot R11.2 NAUSEA WITH VOMITING, UNSPECIFIED 05/10/2016 DAMION CRAWFORD ANTHROPOLOGY DEPARTMENT CHAIR Ot R19.7 DIARRHEA, UNSPECIFIED 06/23/2016 ALEKSANDRA FRENCH, [...] OTHER AND UNSPECIFIED OVREXRTN OR STRNOU 09/22/2016 ORGELIO BARON Ot Y99.8 OTHER EXTERNAL CAUSE STATUS 10/22/2016 JEROME FRENCH, LAWANDA R Ot R10.11 RIGHT UPPER QUADRANT PAIN 11/05/2016 DAMION CRAWFORD APRN Ot R11.2 NAUSEA WITH VOMITING, UNSPECIFIED 11/05/2016 DAMION CRAWFORD APRN Ot R19.7 DIARRHEA, UNSPECIFIED 08/11/2017 DAMION CRAWFORD APRN Ot M79.632 PAIN IN LEFT FOREARM 08/11/2017 DAMION CRAWFORD APRN Ot S13.4XXA SPRAIN OF LIGAMENTS OF CERVICAL SPINE, I 08/11/2017 DAMION CRAWFORD APRN Ot S50.12XA CONTUSION OF LEFT FOREARM, INITIAL ENCOU 08/11/2017 DAMION CRAWFORD APRN Ot W17.89XA OTHER FALL FROM ONE LEVEL TO ANOTHER, IN 08/11/2017 DAMION CRAWFORD APRN Ot Y92.[address] IN [facility] NON-INSTITUT (PRIVATE 08/11/2017 DAMION CRAWFORD APRN Ot Z79.52 SHOE LAY OUT PLANNER (CURRENT) USE OF SYSTEMIC STER 08/11/2017 DAMION CRAWFORD ANTHROPOLOGY DEPARTMENT CHAIR Ot Z82.49 FAMILY HX OF ISCHEM HEART DIS AND OTH DI 08/15/2017 DAMION CRAWFORD ANTHROPOLOGY DEPARTMENT CHAIR Ot M79.632 PAIN IN LEFT FOREARM 08/15/2017 DAMION CRAWFORD ANTHROPOLOGY DEPARTMENT CHAIR Ot S13.4XXA SPRAIN OF LIGAMENTS OF CERVICAL SPINE, I 08/15/2017 DAMION CRAWFORD ANTHROPOLOGY DEPARTMENT CHAIR Ot S50.12XA CONTUSION OF LEFT FOREARM, INITIAL ENCOU 08/15/2017 DAMION CRAWFORD ANTHROPOLOGY DEPARTMENT CHAIR Ot W17.89XA OTHER FALL FROM ONE LEVEL TO ANOTHER, IN 08/15/2017 DAMION CRAWFORD APRN Ot Y92.[address] [facility] 08/15/2017 DAMION CRAWFORD APRN Ot Z79.52 SKILLED NURSING (CURRENT) USE OF SYSTEMIC STER 08/15/2017 DAMION CRAWFORD APRN Ot Z82.49 FAMILY HX OF ISCHEM HEART DIS AND OTH DI 11/21/2017 JEROME FRENCH, LAWANDA R Ot 780.99 OTHER GENERAL SYMPTOMS NOS 11/21/2017 JEROME FRENCH, LAWANDA R Ot 784.49 OTHER VOICE AND RESONANCE DISORDERS 11/21/2017 JEROME FRENCH, LAWANDA R Ot 790.29 OTHER ABNORMAL GLUCOSE 11/21/2017 Ot 789.05 ABDOMINAL PAIN, PERIUMBILIC 11/21/2017 JEROME FRENCH, LAWANDA R Ot 715.36 LOC OSTEOARTH NOS-L/LEG 11/21/2017 Ot 789.01 ABDOMINAL PAIN, RIGHT UPPER QUADRANT 11/21/2017 Ot 789.06 ABDOMINAL PAIN, EPIGASTRIC 11/21/2017 JEROME FRENCH, LAWANDA R Ot R10.11 RIGHT UPPER QUADRANT PAIN 03/01/2018 JETT PORTILLO Ot K02.9 DENTAL CARIES, UNSPECIFIED 03/01/2018 JETT PORTILLO Ot K04.7 PERIAPICAL ABSCESS WITHOUT SINUS 03/01/2018 AVERY PORTILLOIS Ot K08.89 OTHER SPECIFIED DISORDERS OF TEETH AND S 03/03/2018 JETT PORTILLO Ot K02.9 DENTAL CARIES, UNSPECIFIED 03/03/2018 JETT PORTILLO Ot K04.7 PERIAPICAL ABSCESS WITHOUT SINUS 03/03/2018 JETT PORTILLO Ot K08.89 OTHER SPECIFIED DISORDERS OF TEETH AND S Procedures There is no data. Results Test [...] NRG Blood erythrocyte morphology finding identification NORMAL NR Comprehensive metabolic panel - 05/07/16 12:50 Serum [...] Status Pt. Type Provider Facility Loc./Unit Complaint [id number] 03/01/2018 19:04:00 03/01/2018 21:00:00 DIS Emergency JETT PORTILLO [facility] ER EAR/JAW PAIN [id number] 08/11/2017 15:56:00 08/11/2017 17:45:00 DIS Emergency DAMION CRAWFORD APRN [facility] ER FALL THRU POOL DECK - L ARM PAIN [id number] 09/22/2016 17:29:00 09/22/2016 17:54:00 DIS Emergency ROGELIO BARON [facility] ER BACK PAIN [id number] 07/30/2016 06:44:00 07/30/2016 23:59:59 CLS Outpatient JEROME FRENCH, LAWANDA R [facility] RAD RUQ ABD PAIN [id number] 06/23/2016 19:32:00 06/23/2016 21:16:00 DIS Emergency TIANA LAKE MD [facility] ER ABD PAIN [id number] 05/07/2016 12:26:00 05/07/2016 15:33:00 DIS Emergency DAMION CRAWFORD APRN [facility] ER VOMITING, DIARRHEA [id number] 11/26/2015 17:23:00 11/26/2015 21:17:00 DIS Emergency DAMION CRAWFORD ANTHROPOLOGY DEPARTMENT CHAIR [facility] ER ABD PAIN [id number] 05/06/2015 13:24:00 05/06/2015 15:47:00 DIS Emergency DAMION CRAWFORD APRN [facility] ER VOMITING/ABD PAIN [id number] 11/16/2014 17:09:00 11/16/2014 19:22:00 DIS Emergency ROGELIO BARON [facility] ER BACK PAIN FROM FALL/ TRIPPED OVER VACUUM CORD FELL [id number] 10/17/2014 17:32:00 10/17/2014 23:59:59 CLS Outpatient CARL ZUÑIGA ANTHROPOLOGY DEPARTMENT CHAIR [facility] QUICK [id number] 09/24/2014 15:10:00 09/24/2014 23:59:59 CLS Outpatient JEROME FRENCH, LAWANDA Briceno [facility] RAD DIFFICULTY ON EXTENSION, FALL W/PAINFUL L KNEE [id number] 02/02/2014 01:48:00 02/02/2014 05:09:00 DIS Emergency TERRI ALEXANDER DO [facility] ER ABD PAIN [id number] 01/29/2014 15:05:00 01/29/2014 16:00:00 DIS Emergency DAMION CRAWFORD ANTHROPOLOGY DEPARTMENT CHAIR [facility] ER RT SIDED PAIN [id number] 01/07/2014 17:25:00 01/07/2014 23:59:59 CLS Outpatient [id number] 10/14/2013 19:26:00 10/14/2013 20:06:00 DIS Emergency DAMION CRAWFORD ANTHROPOLOGY DEPARTMENT CHAIR [facility] ER LOWER BACK PAIN [id number] 10/02/2013 21:32:00 10/02/2013 22:42:00 DIS Emergency ROGELIO BARON [facility] ER R FOOT INJ [id number] 07/06/2013 18:52:00 07/06/2013 20:20:00 DIS Emergency ROGELIO BARON [facility] ER L HAND PAIN [id number] 06/28/2013 14:24:00 06/28/2013 23:59:59 CLS Outpatient LAWANDA CANO MD [facility] LAB HYPERGLYCEIMA [id number] 05/27/2013 01:31:00 05/27/2013 03:39:00 DIS Emergency TERRI ALEXANDER DO [facility] ER RIGHT ABDOMINAL PAIN [id number] 05/01/2013 16:45:00 05/01/2013 23:59:59 CLS Outpatient [id number] 03/10/2013 19:46:00 03/10/2013 20:40:00 DIS Emergency DAMION CRAWFORD APRN [facility] ER TWISTED RIGHT ANKLE [id number] 03/08/2013 16:18:00 03/08/2013 23:59:59 CLS Outpatient LAWANDA CANO MD [facility] LAB COLD,LOWER VOICE [id number] 12/23/2012 19:08:00 12/23/2012 23:59:59 CLS Outpatient [id number] 12/11/2012 14:45:00 12/11/2012 17:07:00 DIS Emergency ALEAH MENDOZA MD [facility] ER PT FELL AND HURT KNEE [id number] 12/25/2014 07:00:00 Document Registration [id number] 06/27/2014 11:00:00 Document Registration [id number] 06/26/2014 14:27:00 Document Registration [id number] 05/27/2012 04:30:00 Document Registration [id number] 01/24/2012 15:50:00 Document Registration [id number] 10/31/2011 15:28:00 Document Registration [id number] 09/07/2011 20:18:00 Document Registration [id number] 07/19/2011 15:34:00 Document Registration [id number] 06/26/2011 16:32:00 Document Registration [id number] 12/10/2010 16:50:00 Document Registration [id number] 05/14/2010 17:16:00 Document Registration [id number] 11/12/2009 23:38:00 Document Registration [id number] 10/23/2009 10:09:00 Document Registration [id number] 10/08/2009 15:04:00 Document Registration
[2018-07-15] MEDS ORDERED: CEPH-507 PO (16:47)
[2018-07-15] MEDS ORDERED: MUPI15CR11 TP (16:47)
[2018-07-15] MEDS ORDERED: CLOT15CR4 TP (16:47)
--- NOTE | 2018-07-15 16:47 | ED Integumentary General ---
General Chief Complaint: Skin/Wound Problems Stated Complaint: SORE/WOUND IN [place] Nursing Triage Note: PT REPORTS THAT SHE HAS A RASH ON HER STOMACH WITH AN OPEN WOUND. PT REPORTS NOW HAVING BUMPS ON HER HAND, ARMS, AND CHEST. PT HAS BEEN TO THE DOCTOR FOR THIS AND WAS GIVEN CREAM BUT RASH IS NOT GETTING BETTER. Source: patient Exam Limitations: no limitations History of Present Illness Date Seen by Provider: Jul 15, 2018 Time Seen by Provider: 16:42 Initial Comments To ER with one month history of an itchy periumbilical rash is erythematous and has begun to drain. It is between skin folds. Timing/Duration: constant Severity: moderate Location: torso Possible Cause: no cause identified Associated Symptoms: denies symptoms Allergies and Home Medications Allergies Coded Allergies: No Known Drug Allergies (Unverified , 07/15/18) Home Medications Amoxicillin/Potassium Clav 1 Each Tablet, 1 EACH PO BID Prescribed by: JETT PORTILLO on 03/01/182018 Cyclobenzaprine HCl 10 Mg Tablet, 10 MG PO Q8H PRN for SPASMS Prescribed by: ROGELIO CEE on 09/22/16 174 Cyclobenzaprine HCl 5 Mg Tablet, 5 MG PO TID PRN for PAIN-MILD TO MODERATE Prescribed by: DAMION CRAWFORD on 08/11/17 162 Ibuprofen 800 Mg Tablet, 800 MG PO Q8H PRN for PAIN Prescribed by: ROGELIO CEE on 09/22/16 174 Prednisone 20 Mg Tab, 40 MG PO DAILY Prescribed by: ROGELIO CEE on 09/22/161742 Tramadol HCl 50 Mg Tablet, 1-2 MG PO Q6H PRN for PAIN Prescribed by: TIANA LAKE on 06/23/162110 Patient Home Medication List Home Medication List Reviewed: Yes Review of Systems Review of Systems Constitutional: see HPI; No chills, No fever EENTM: see HPI Respiratory: no symptoms reported Cardiovascular: no symptoms reported Genitourinary: no symptoms reported Musculoskeletal: no symptoms reported Skin: see HPI, lesions Psychiatric/Neurological: No Symptoms Reported Endocrine: No Symptoms Reported Past Vofaufh-Wikeea-Ddpmxq Hx Patient Social History Alcohol Use: Denies Use Recreational Drug Use: No Smoking Status: Never a Smoker 2nd Hand Smoke Exposure: No Recent Foreign Travel: No Contact w/Someone Who Travel: No Recent Infectious Disease Expo: No Recent Hopitalizations: No Immunizations Up To Date Tetanus Booster (TDap): Less than 5yrs Seasonal Allergies Seasonal Allergies: No Past Medical History Surgeries: No Respiratory: No Cardiac: No Neurological: No Reproductive Disorders: No Sexually Transmitted Disease: No HIV/AIDS: No Gastrointestinal: No Musculoskeletal: No Cancer: No Psychosocial: No Integumentary: No Blood Disorders: No Adverse Reaction/Blood Tranf: No Family Medical History ANXIETY 19 MOTHER Asthma 19 MOTHER (COPD) BI-POLAR 19 MOTHER BI-POLAR 19 MOTHER FH: heart attack Hypertension 19 MOTHER No Pertinent Family Hx Physical Exam Vital Signs Vital Signs - First Documented 07/15/18 16:22 Temp 99.4 Pulse 87 Resp 16 B/P (MAP) 112/101 (105) Pulse Ox 100 Capillary Refill : Less Than 3 Seconds General Appearance: WD/WN, no apparent distress HEENT: PERRL/EOMI, normal ENT inspection Respiratory: no respiratory distress, no accessory muscle use Neurologic/Psychiatric: alert, normal mood/affect, oriented x 3 Skin: other (she is dark complected per baseline and there is darkening of the skin and the periumbilical region between the skin folds. There is no fluctuant abscess or cellulitis. Appears to be intertrigo. She also has a an erythematous papular rash to the upper chest.) Progress/Results/Core Measures Results/Orders Vital Signs/I&O 07/15/18 16:22 Temp 99.4 Pulse 87 Resp 16 B/P (MAP) 112/101 (105) Pulse Ox 100 Blood Pressure Mean: 105 Departure Impression Primary Impression: Intertrigo Disposition: 01 HOME, SELF-CARE Condition: Stable Departure-Patient Inst. Decision time for Depature: 16:45 Referrals: LAWANDA CANO MD (PCP/Family) Primary Care Physician Patient Instructions: NO INSTRUCTIONS GIVEN Add. Discharge Instructions: 1. Return to ER for any concerns 2.Cream as directed 3. All discharge instructions reviewed with patient and/or family. Voiced understanding. Scripts Cephalexin (Keflex) 500 Mg Capsule 500 MG PO TID, #21 CAP Prov: DAMION CRAWFORD [employer] 07/15/18 Mupirocin Calcium (Mupirocin) 15 Gm Cream..g. 1 GM TP BID, #2 TUBE Mix with the other cream and apply to the affected area on the abdomen twice a day for 14 days Prov: DAMION CRAWFORD APRN 07/15/18 Clotrimazole/Betamethasone Dip (Lotrisone Cream) 15 Gm Cream..g. 1 GM TP BID for 14 Days, #2 TUBE Apply to the affected area on the abdomen twice a day for 14 days Prov: DAMION CRAWFORD APRN 07/15/18 DAMION CRAWFORD APRN Jul 15, 2018 16:47
[2018-07-15 16:50] VITALS: BP 112/101
== END 2018-07-15 16:51 | disposition home or self-care (01) ==
LOC: EDUNIT# 16:17 → ER 16:18
DX: L30.4 Erythema intertrigo (principal); Z79.52 Long term (current) use of systemic steroids; Z82.49 Family history of ischemic heart disease and other diseases of the circulatory system
CPT/HCPCS: 99281

== ENCOUNTER 2018-07-18 20:02 | Emergency (ER) | payer MEDICARE, MEDICAID ==
[~2018-07-18] VITALS: Ht 177.8 cm; Wt 138.3 kg
[~2018-07-18 20:02] MED LIST changes: +CEPH-507 PO; +CLOT15CR4 TP; +MUPI15CR11 TP
[2018-07-18] MEDS ORDERED: ACETAMINOPHEN 500 MG TAB (TYLENOL) PO ONE (20:15)
[2018-07-18] MEDS ORDERED: PROMETHAZINE/ CODEINE SYRUP 5 ML UDC PO ONE (20:15)
--- NOTE | 2018-07-18 20:15 | ED Cough/URI ---
General Stated Complaint: CHEST PAINS, COUGH FEVER RUNNY NOSE Source: patient Exam Limitations: no limitations History of Present Illness Date Seen by Provider: Jul 18, 2018 Time Seen by Provider: 20:08 Initial Comments 27-year-old female who presents to the emergency room with complaints of fever, productive cough, congestion, chest soreness for the past 3 days. She reports that she was seen in the emergency room 3 days ago for a fungal skin infection and is still on medications for this. She denies shortness of breath. Timing/Duration: other (3 days) Prior Episodes/Possible Cause: no prior episodes Associated Symptoms: chest pain/soreness, cough, fever/chills, nasal congestion , nasal drainage Allergies and Home Medications Allergies Coded Allergies: No Known Drug Allergies (Unverified , 07/15/18) Home Medications Amoxicillin/Potassium Clav 1 Each Tablet, 1 EACH PO BID Prescribed by: JETT PORTILLO on 03/01/182018 Cephalexin 500 Mg Capsule, 500 MG PO TID Prescribed by: DAMION CRAWFORD on 07/15/18 164 Clotrimazole/Betamethasone Dip 15 Gm Cream..g., 1 GM TP BID Apply to the affected area on the abdomen twice a day for 14 days Prescribed by: DAMION CRAWFORD on 07/15/18 164 Cyclobenzaprine HCl 10 Mg Tablet, 10 MG PO Q8H PRN for SPASMS Prescribed by: ROGELIO CEE on 09/22/16 174 Cyclobenzaprine HCl 5 Mg Tablet, 5 MG PO TID PRN for PAIN-MILD TO MODERATE Prescribed by: DAMION CRAWFORD on 08/11/17 1626 Ibuprofen 800 Mg Tablet, 800 MG PO Q8H PRN for PAIN Prescribed by: ROGELIO CEE on 09/22/16 174 Mupirocin Calcium 15 Gm Cream..g., 1 GM TP BID Mix with the other cream and apply to the affected area on the abdomen twice a day for 14 days Prescribed by: DAMION CRAWFORD on 07/15/18 164 Prednisone 20 Mg Tab, 40 MG PO DAILY Prescribed by: ROGELIO CEE on 09/22/16 174 Tramadol HCl 50 Mg Tablet, 1-2 MG PO Q6H PRN for PAIN Prescribed by: TIANA LAKE on 06/23/162110 Patient Home Medication List Home Medication List Reviewed: Yes Past Brgmydr-Jqqhco-Umpdez Hx Patient Social History 2nd Hand Smoke Exposure: No Recent Hopitalizations: No Immunizations Up To Date Tetanus Booster (TDap): Less than 5yrs Seasonal Allergies Seasonal Allergies: No Past Medical History Surgeries: No Respiratory: No Cardiac: No Neurological: No Reproductive Disorders: No Sexually Transmitted Disease: No HIV/AIDS: No Gastrointestinal: No Musculoskeletal: No Cancer: No Psychosocial: No Integumentary: No Blood Disorders: No Adverse Reaction/Blood Tranf: No Family Medical History ANXIETY 19 MOTHER Asthma 19 MOTHER (COPD) BI-POLAR 19 MOTHER BI-POLAR 19 MOTHER FH: heart attack Hypertension 19 MOTHER No Pertinent Family Hx Physical Exam Vital Signs - First Documented 07/18/18 20:04 Temp 100.2 Pulse 108 Resp 18 B/P (MAP) 166/109 (128) Pulse Ox 99 O2 Delivery Room Air Capillary Refill : Height: 5'10.00" Weight: 305lbs. oz. 138.004927wv; BMI Method:Stated Progress/Results/Core Measures Suspected Sepsis SIRS Temperature: Pulse: Respiratory Rate: Blood Pressure / Mean: Results/Orders Micro Results Microbiology 07/18/18 Influenza Types A,B Antigen (LEANDRO) - Final, Complete My Orders Orders - JETT PORTILLO Chest Pa/Lat (2 View) (07/18/18 20:07) Influenza A And B Antigens (07/18/18 20:07) Promethazine/ Codeine Syrup (Phenergan W (07/18/18 20:15) Acetaminophen Tablet (Tylenol Tablet) (07/18/18 20:15) Medications Given in ED Current Medications Medications Dose Ordered Sig/Nicko Route Start Time Stop Time Status Last Admin Dose Admin Acetaminophen 1,000 mg ONCE ONCE PO 07/18/18 20:15 07/18/18 20:16 DC 07/18/18 20:22 1,000 MG Promethazine HCl/ Codeine 5 ml ONCE ONCE PO 07/18/18 20:15 07/18/18 20:16 DC 07/18/18 20:23 5 ML Vital Signs/I&O 07/18/18 20:04 Temp 100.2 Pulse 108 Resp 18 B/P (MAP) 166/109 (128) Pulse Ox 99 O2 Delivery Room Air Capillary Refill : Departure Impression Primary Impression: Bronchitis Additional Impression: Viral respiratory illness Disposition: HOME, SELF-CARE Condition: Stable/Unchanged Departure-Patient Inst. Decision time for Depature: 21:11 Referrals: LAWANDA CANO MD (PCP/Family) Primary Care Physician Patient Instructions: Acute Bronchitis, Adult (DC), VIRAL RESP ILLNESS-ADULT Add. Discharge Instructions: Take medications as directed. Follow-up with your primary care provider within 1 week for recheck. Return back to the emergency room for worsening symptoms or concerns as needed. Scripts Promethazine/Dextromethorphan (Promethazine-Dm Syrup) 473 Ml Syrup 5 ML PO Q4H PRN for COUGH, #60 ML Prov: JETT PORTILLO 07/18/18 Prednisone (Prednisone) 10 Mg Tab.ds.pk 10 MG PO UD, #1 PKG Prov: JETT PORTILLO 07/18/18 Azithromycin (Zithromax) 250 Mg Tablet 250 MG PO UD, #6 TAB TAKE 2 TABLETS TODAY, THEN TAKE 1 TABLET DAILY FOR 4 MORE DAYS Prov: JETT PORTILLO 07/18/18 JETT PORTILLO Jul 18, 2018 20:15
--- NOTE | 2018-07-18 20:39 | Diagnostic Imaging Report ---
INDICATION: Febrile. Cough. Comparison with 11/20/2011. FINDINGS: PA and lateral chest shows the lungs to be well-aerated and clear. There is no air trapping. There are no infiltrates. Heart is not enlarged. No hilar adenopathy. No evidence of pulmonary edema. No pneumothorax or pleural effusion. No bony abnormalities. IMPRESSION: Normal PA and lateral chest. Dictated by: Dictated on workstation # [id number]
[2018-07-18] MEDS ORDERED: D-ME473S38 PO (21:14)
[2018-07-18] MEDS ORDERED: AZIT250T PO (21:14)
[2018-07-18] MEDS ORDERED: PRED10TA22 PO (21:14)
[2018-07-18 21:20] VITALS: BP 134/109
== END 2018-07-18 21:20 | disposition home or self-care (01) ==
LOC: EDUNIT# 20:02 → ER 20:06
DX: J40 Bronchitis, not specified as acute or chronic (principal); J98.8 Other specified respiratory disorders; Z82.49 Family history of ischemic heart disease and other diseases of the circulatory system
CPT/HCPCS: 71046; 87804

== ENCOUNTER 2018-10-31 18:03 | Emergency (ER) | payer MEDICARE, MEDICAID ==
[~2018-10-31] VITALS: Ht 177.8 cm; Wt 138.3 kg
[~2018-10-31 18:03] MED LIST changes: +AZIT250T PO; +D-ME473S38 PO; +PRED10TA22 PO
--- NOTE | 2018-10-31 18:35 | ED Chest Pain ---
General Chief Complaint: Chest Pain Stated Complaint: CHEST PAIN,SOA,R ARM PAIN Nursing Triage Note: PT STATES RT SIDE CHEST PAIN FOR A COUPLE DAYS, RADIATING TO ARM AND BACK. Nursing Sepsis Screen: No Definite Risk Source: patient Exam Limitations: no limitations History of Present Illness Date Seen by Provider: Oct 31, 2018 Time Seen by Provider: 18:20 Initial Comments This 28-year-old woman presents to the emergency room with complaints of right upper chest pain that radiates into her arm and her upper back. Symptoms started about 2 days ago. They are worse with deep breathing and movement. She denies any fever or cough. She was tachycardic on presentation. She had a trip to [place] at the end of September. She denies smoking. She has no significant medical history. LMP was October 22. Allergies and Home Medications Allergies Coded Allergies: No Known Drug Allergies (Unverified , 07/15/18) Home Medications Clotrimazole/Betamethasone Dip 15 Gm Cream..g., 1 GM TP BID Apply to the affected area on the abdomen twice a day for 14 days Prescribed by: DAMION CRAWFORD on 07/15/18 1647 Cyclobenzaprine HCl 10 Mg Tablet, 10 MG PO Q8H PRN for SPASMS Prescribed by: ROGELIO CEE on 09/22/16 1743 Cyclobenzaprine HCl 5 Mg Tablet, 5 MG PO TID PRN for PAIN-MILD TO MODERATE Prescribed by: DAMION CRAWFORD on 08/11/17 1626 Ibuprofen 800 Mg Tablet, 800 MG PO Q8H PRN for PAIN Prescribed by: ROGELIO CEE on 09/22/16 1743 Mupirocin Calcium 15 Gm Cream..g., 1 GM TP BID Mix with the other cream and apply to the affected area on the abdomen twice a day for 14 days Prescribed by: DAMION CRAWFORD on 07/15/18 1647 Tramadol HCl 50 Mg Tablet, 1-2 MG PO Q6H PRN for PAIN Prescribed by: TIANA LAKE on 06/23/162110 Patient Home Medication List Home Medication List Reviewed: Yes Review of Systems Review of Systems Constitutional: no symptoms reported EENTM: No Symptoms Reported Respiratory: See HPI Cardiovascular: See HPI Gastrointestinal: No Symptoms Reported Genitourinary: No Symptoms Reported Musculoskeletal: see HPI Skin: no symptoms reported Psychiatric/Neurological: No Symptoms Reported Endocrine: No Symptoms Reported Hematologic/Lymphatic: No Symptoms Reported Past Wukemis-Uddran-Mhkwdx Hx Past Med/Social Hx: Reviewed and Corrections made Patient Social History Alcohol Use: Denies Use Recreational Drug Use: No Smoking Status: Never a Smoker 2nd Hand Smoke Exposure: No Recent Foreign Travel: No Contact w/Someone Who Travel: No Recent Infectious Disease Expo: No Recent Hopitalizations: No Immunizations Up To Date Tetanus Booster (TDap): Less than 5yrs Seasonal Allergies Seasonal Allergies: No Past Medical History Surgeries: No Respiratory: No Cardiac: No Neurological: No : No Last Menstrual Period: Oct 27, 2018 Reproductive Disorders: No Sexually Transmitted Disease: No HIV/AIDS: No Genitourinary: No Gastrointestinal: No Musculoskeletal: No Endocrine: Yes (obesity) HEENT: No Cancer: No Psychosocial: No Integumentary: No Blood Disorders: No Adverse Reaction/Blood Tranf: No Family Medical History ANXIETY 19 MOTHER Asthma 19 MOTHER (COPD) BI-POLAR 19 MOTHER BI-POLAR 19 MOTHER FH: heart attack Hypertension 19 MOTHER No Pertinent Family Hx Physical Exam Vital Signs Vital Signs - First Documented 10/31/18 18:07 Temp 98.7 Pulse 115 Resp 22 B/P (MAP) 154/104 (121) Pulse Ox 100 O2 Delivery Room Air Capillary Refill : Less Than 3 Seconds Height, Weight, BMI Height: 5'10.00" Weight: 305lbs. oz. 138.052597sq; 0.00 BMI Method:Stated General Appearance: No Apparent Distress, WD/WN, Obese HEENT: PERRL/EOMI, Normal ENT Inspection Neck: Normal Inspection Respiratory: Chest Non Tender, Lungs Clear, Normal Breath Sounds, No Accessory Muscle Use, No Respiratory Distress Cardiovascular: Regular Rate, Rhythm, No Edema, No Murmur Gastrointestinal: Normal Bowel Sounds, Non Tender, Soft Extremity: Normal Inspection, Non Tender, No Calf Tenderness, No Pedal Edema, Other (negative Sri) Neurologic/Psychiatric: Alert, Oriented x3, No Motor/Sensory Deficits, Normal Mood/Affect, creel hand II-XII Norm as Tested Skin: Normal Color, Warm/Dry Progress/Results/Core Measures Results/Orders Lab Results Laboratory Tests Test 10/31/18 18:10 Range/Units White Blood Count 9.4 4.3-11.0 10^3/uL Red Blood Count 4.43 4.35-5.85 10^6/uL Hemoglobin 11.7 11.5-16.0 G/DL Hematocrit 37 35-52 % Mean Corpuscular Volume 83 80-99 FL Mean Corpuscular Hemoglobin 26 25-34 PG Mean Corpuscular Hemoglobin Concent 32 32-36 G/DL Red Cell Distribution Width 16.0 H 10.0-14.5 % Platelet Count 226 130-400 10^3/uL Mean Platelet Volume 11.1 H 7.4-10.4 FL Neutrophils (%) (Auto) 68 42-75 % Lymphocytes (%) (Auto) 20 12-44 % Monocytes (%) (Auto) 11 0-12 % Eosinophils (%) (Auto) 2 0-10 % Basophils (%) (Auto) 0 0-10 % Neutrophils # (Auto) 6.4 1.8-7.8 X 10^3 Lymphocytes # (Auto) 1.9 1.0-4.0 X 10^3 Monocytes # (Auto) 1.0 0.0-1.0 X 10^3 Eosinophils # (Auto) 0.2 0.0-0.3 10^3/uL Basophils # (Auto) 0.0 0.0-0.1 10^3/uL D-Dimer 0.49 0.00-0.49 UG/ML Sodium Level 143 135-145 MMOL/L Potassium Level 3.5 L 3.6-5.0 MMOL/L Chloride Level 107 98-107 MMOL/L Carbon Dioxide Level 27 21-32 MMOL/L Anion Gap 9 5-14 MMOL/L Blood Urea Nitrogen 7 7-18 MG/DL Creatinine 0.93 0.60-1.30 MG/DL Estimat Glomerular Filtration Rate > 60 BUN/Creatinine Ratio 8 Glucose Level 97 70-105 MG/DL Calcium Level 9.0 8.5-10.1 MG/DL Corrected Calcium 8.9 8.5-10.1 MG/DL Total Bilirubin 0.3 0.1-1.0 MG/DL Aspartate Amino Transf (AST/SGOT) 20 5-34 U/L Alanine Aminotransferase (ALT/SGPT) 10 0-55 U/L Alkaline Phosphatase 87 40-136 U/L Total Protein 7.2 6.4-8.2 GM/DL Albumin 4.1 3.2-4.5 GM/DL Serum Test, Qualitative NEGATIVE NEGATIVE My Orders [place] - ALEAH MENDOZA MD Chest Pa/Lat (2 View) (10/31/18 18:20) Cbc With Automated Diff (10/31/18 18:29) Comprehensive Metabolic Panel (10/31/18 18:29) Hcg,Qualitative Serum (10/31/18 18:29) Fibrin Degradation Products (10/31/18 19:23) Ekg Tracing (10/31/18 19:24) Monitor-Rhythm Ecg Trace Only (10/31/18 19:24) Ketorolac Injection (Toradol Injection) (10/31/18 19:45) Medications Given in ED Current Medications Medications Dose Ordered Sig/Nicko Route Start Time Stop Time Status Last Admin Dose Admin Ketorolac Tromethamine 15 mg ONCE ONCE IVP 10/31/18 19:45 10/31/18 19:46 DC 10/31/18 19:49 15 MG Vital Signs/I&O 10/31/18 10/31/18 18:07 18:16 Temp 98.7 Pulse 115 Resp 22 B/P (MAP) 154/104 (121) Pulse Ox 100 O2 Delivery Room Air Room Air Blood Pressure Mean: 121 Progress Progress Note #1: Time: 20:00 Progress Note Workup including d-dimer has been unremarkable. Patient still states that her pain is a 10 on the pain scale, although she is able to smile and laugh. Toradol has been given for pain control. We will make sure her pain is improving before she is discharged home. Progress Note #2: Time: 20:15 Progress Note Patient reported significant improvement in pain after Toradol. Initial ECG Impression Date: Oct 31, 2018 Initial ECG Impression Time: 18:08 Initial ECG Rate: 98 Initial ECG Rhythm: S.Tach Initial ECG Intervals: Normal Comment Sinus tachycardia with no ST elevation or depression. No abnormal intervals or axis deviation. Diagnostic Imaging Diagonstic Imaging: Xray Plain Films/CT/US/NM/MRI: chest Comments Two-view chest x-ray viewed by me and report reviewed. See report below: NAME: MARCY BOUCHER [facility] REC#: [id number] PT STATUS: REG ER : 1990 PHYSICIAN: ALEAH MENDOZA MD ADMIT DATE: 10/31/18/ER Draft Date of Exam:10/31/18 CHEST PA/LAT (2 VIEW) INDICATION: Chest pain. TIME OF EXAM: 07:01 p.m. COMPARISON: Correlation is made with prior study of 07/18/2018. FINDINGS: The heart size is normal. The pulmonary vascularity is unremarkable. The lungs are clear. No infiltrate, effusion or pneumothorax is detected. IMPRESSION: No acute cardiopulmonary process is detected. Dictated on workstation # [id number] Dict: 10/31/181901 Trans: 10/31/181911 [id number] Interpreted by: SHAD MELGAR MD Departure Impression Primary Impression: Pleuritic chest pain Disposition: HOME, SELF-CARE Condition: Improved Departure-Patient Inst. Decision time for Depature: 19:45 Referrals: LAWANDA CANO MD (PCP/Family) Primary Care Physician Patient Instructions: Chest Pain That Is Not Caused by the Heart (DC) Add. Discharge Instructions: For pain you may take ibuprofen up to 600 mg every 6 hours as needed. Add Tylenol (acetaminophen) up to 1000 mg every 6 hours as needed for additional pain relief. Return to care if symptoms are worsening. Follow-up with a primary care provider soon as possible. All discharge instructions reviewed with patient and/or family. Voiced understanding. ALEAH MENDOZA MD Oct 31, 2018 18:35
[2018-10-31 18:37] LABS: BASOPHILS % (AUTO) 0 % (0-10); EOSINOPHILS # (AUTO) 0.2 10^3/uL (0.0-0.3); EOSINOPHILS % (AUTO) 2 % (0-10); HEMATOCRIT 37 % (35-52); HEMOGLOBIN 11.7 G/DL (11.5-16.0); LYMPHOCYTES # (AUTO) 1.9 X 10^3 (1.0-4.0); LYMPHOCYTES % (AUTO) 20 % (12-44); MEAN CORPUSCULAR HEMOGLOBIN 26 PG (25-34); MEAN CORPUSCULAR HGB CONC 32 G/DL (32-36); MEAN CORPUSCULAR VOLUME 83 FL (80-99); MEAN PLATELET VOLUME 11.1 FL (7.4-10.4); MONOCYTES % (AUTO) 11 % (0-12); NEUTROPHILS # (AUTO) 6.4 X 10^3 (1.8-7.8); NEUTROPHILS % (AUTO) 68 % (42-75); PLATELET COUNT 226 10^3/uL (130-400); WHITE BLOOD COUNT 9.4 10^3/uL (4.3-11.0)
[2018-10-31 18:47] LABS: ALANINE AMINOTRANSFERASE 10 U/L (0-55); ALBUMIN 4.1 GM/DL (3.2-4.5); ALKALINE PHOSPHATASE 87 U/L (40-136); BILIRUBIN,TOTAL 0.3 MG/DL (0.1-1.0); BUN/CREATININE RATIO 8; CARBON DIOXIDE 27 MMOL/L (21-32); CHLORIDE 107 MMOL/L (98-107); CREATININE SERUM 0.93 MG/DL (0.60-1.30); GFR ESTIMATED > 60; GLUCOSE 97 MG/DL (70-105); POTASSIUM 3.5 MMOL/L (3.6-5.0); SODIUM 143 MMOL/L (135-145); TOTAL PROTEIN 7.2 GM/DL (6.4-8.2)
--- NOTE | 2018-10-31 19:13 | Diagnostic Imaging Report ---
INDICATION: Chest pain. TIME OF EXAM: 07:01 p.m. COMPARISON: Correlation is made with prior study of 07/18/2018. FINDINGS: The heart size is normal. The pulmonary vascularity is unremarkable. The lungs are clear. No infiltrate, effusion or pneumothorax is detected. IMPRESSION: No acute cardiopulmonary process is detected. Dictated by: Dictated on workstation # [id number]
[2018-10-31] MEDS ORDERED: KETOROLAC 30 MG/ML VIAL IVP ONE (19:45)
[2018-10-31 20:28] VITALS: BP 135/85
== END 2018-10-31 20:30 | disposition home or self-care (01) ==
LOC: EDUNIT# 18:03 → ER 18:05
DX: R07.81 Pleurodynia (principal); E66.9 Obesity, unspecified; Z82.49 Family history of ischemic heart disease and other diseases of the circulatory system; Z68.41 Body mass index [BMI] 40.0-44.9, adult
CPT/HCPCS: 36415; 71046; 80053; 84703; 85025; 85379; 93005; 93041; 96374

== ENCOUNTER 2019-03-24 18:31 | Emergency (ER) | payer MEDICARE, MEDICAID ==
[~2019-03-24] VITALS: Ht 177 cm; Wt 138.0 kg
[2019-03-24 19:23] LABS: BASOPHILS % (AUTO) 0 % (0-10); EOSINOPHILS # (AUTO) 0.2 10^3/uL (0.0-0.3); EOSINOPHILS % (AUTO) 3 % (0-10); HEMATOCRIT 38 % (35-52); LYMPHOCYTES # (AUTO) 1.7 X 10^3 (1.0-4.0); LYMPHOCYTES % (AUTO) 23 % (12-44); MEAN CORPUSCULAR HEMOGLOBIN 27 PG (25-34); MEAN CORPUSCULAR HGB CONC 32 G/DL (32-36); MEAN CORPUSCULAR VOLUME 84 FL (80-99); MEAN PLATELET VOLUME 10.9 FL (7.4-10.4); MONOCYTES # (AUTO) 0.9 X 10^3 (0.0-1.0); MONOCYTES % (AUTO) 11 % (0-12); NEUTROPHILS # (AUTO) 4.7 X 10^3 (1.8-7.8); NEUTROPHILS % (AUTO) 63 % (42-75); PLATELET COUNT 219 10^3/uL (130-400); WHITE BLOOD COUNT 7.6 10^3/uL (4.3-11.0)
[2019-03-24 19:24] LABS: BILIRUBIN,URINE NEGATIVE (NEGATIVE); CLARITY,URINE CLEAR; COLOR,URINE YELLOW; GLUCOSE, URINE (UA) NEGATIVE (NEGATIVE); KETONES,URINE NEGATIVE (NEGATIVE); LEUKOCYTE ESTERASE ,URINE TRACE (NEGATIVE); NITRITE,URINE NEGATIVE (NEGATIVE); PROTEIN,URINE NEGATIVE (NEGATIVE)
[2019-03-24] MEDS ORDERED: ANTACID SUSP 30 ML UDC (MYLANTA) PO ONE (19:30)
[2019-03-24] MEDS ORDERED: LIDOCAINE 2% VISCOUS 15 ML UDC PO ONE (19:30)
[2019-03-24 19:41] LABS: BACTERIA,URINE FEW /HPF; RBC,URINE 50-100 /HPF; WBC,URINE 0-2 /HPF
--- NOTE | 2019-03-24 19:48 | ED GU-Female ---
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 - ABD PAIN / BLEEDING Nursing Triage Note: pt presents to ED with c/o inntermittent abdominal cramping, nausea, and scant vaginal bleeding. pt had positive pregnany test last week and believes she's about 5 weeks gestation. pt is A0. pt denies v/d/c. pt reports going through 2 pads today. Nursing Sepsis Screen: No Definite Risk Source: patient Exam Limitations: no limitations History of Present Illness Date Seen by Provider: Mar 24, 2019 Time Seen by Provider: 18:58 Initial Comments This 28-year-old woman at approximately 5 weeks gestational age presents to the emergency room with vaginal spotting and upper abdominal pain with associated nausea. She had a positive urine test last week. 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 She denies any fever, constipation, diarrhea, dysuria, or vaginal discharge. Her spotting started yesterday. She has gone through a couple of pads and it seems to be dissipating today. Allergies and Home Medications Allergies Coded Allergies: No Known Drug Allergies (Unverified , 07/15/18) Home Medications Clotrimazole/Betamethasone Dip 15 Gm Cream..g., 1 GM TP BID Apply to the affected area on the abdomen twice a day for 14 days Prescribed by: DAMION CRAWFORD on 07/15/18 1647 Cyclobenzaprine HCl 10 Mg Tablet, 10 MG PO Q8H PRN for SPASMS Prescribed by: ROGELIO CEE on 09/22/16 1743 Cyclobenzaprine HCl 5 Mg Tablet, 5 MG PO TID PRN for PAIN-MILD TO MODERATE Prescribed by: DAMION CRAWFORD on 08/11/17 1626 Ibuprofen 800 Mg Tablet, 800 MG PO Q8H PRN for PAIN Prescribed by: ROGELIO CEE on 09/22/16 1743 Mupirocin Calcium 15 Gm Cream..g., 1 GM TP BID Mix with the other cream and apply to the affected area on the abdomen twice a day for 14 days Prescribed by: DAMION CRAWFORD on 07/15/18 1647 Tramadol HCl 50 Mg Tablet, 1-2 MG PO Q6H PRN for PAIN Prescribed by: TIANA LAKE on 06/23/16 2111 Patient Home Medication List Home Medication List Reviewed: Yes Review of Systems Review of Systems Constitutional: no symptoms reported EENTM: no symptoms reported Respiratory: no symptoms reported Cardiovascular: no symptoms reported Gastrointestinal: see HPI Genitourinary: see HPI : Yes LMP: Feb 17, 2019 Musculoskeletal: no symptoms reported Skin: no symptoms reported Psychiatric/Neurological: No Symptoms Reported Endocrine: No Symptoms Reported Past Dqgnvyv-Uytzft-Symyce Hx Past Med/Social Hx: Reviewed Nursing Past Med/Soc Hx Patient Social History Alcohol Use: Denies Use Recreational Drug Use: No 2nd Hand Smoke Exposure: No Recent Foreign Travel: No Contact w/Someone Who Travel: No Recent Infectious Disease Expo: No Recent Hopitalizations: No Immunizations Up To Date Tetanus Booster (TDap): Less than 5yrs Seasonal Allergies Seasonal Allergies: No Past Medical History Surgeries: No Respiratory: No Cardiac: No Neurological: No : Yes Reproductive Disorders: No Sexually Transmitted Disease: No HIV/AIDS: No Genitourinary: No Gastrointestinal: No Musculoskeletal: No Endocrine: Yes (obesity) HEENT: No Cancer: No Psychosocial: No Integumentary: No Blood Disorders: No Adverse Reaction/Blood Tranf: No Family Medical History ANXIETY 19 MOTHER Asthma 19 MOTHER (COPD) BI-POLAR 19 MOTHER BI-POLAR 19 MOTHER FH: heart attack Hypertension 19 MOTHER No Pertinent Family Hx Physical Exam Vital Signs Vital Signs - First Documented 03/24/19 19:04 Temp 36.6 Pulse 94 Resp 20 B/P (MAP) 137/78 (97) Pulse Ox 98 O2 Delivery Room Air Capillary Refill : Less Than 3 Seconds Height, Weight, BMI Height: 5'10.00" Weight: 305lbs. oz. 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, no motor/sensory deficits, alert, normal mood/affect, oriented x 3 Skin: normal color, warm/dry Progress/Results/Core Measures Suspected Sepsis Recent Fever Within 48 Hours: No Infection Criteria Present: None New/Unexplained Altered Menta: No Sepsis Screen: No Definite Risk SIRS Temperature: Pulse: 94 Respiratory Rate: 20 Laboratory Tests 03/24/19 19:08: White Blood Count 7.6 Blood Pressure 137 /78 Mean: 97 Laboratory Tests 03/24/19 19:08: Creatinine 0.84, Platelet Count 219, Total Bilirubin 0.2 Results/Orders Lab Results Laboratory Tests Test 03/24/19 19:05 03/24/19 19:08 Range/Units Urine Color YELLOW Urine Clarity CLEAR Urine pH 6.0 5-9 Urine Specific [place] 1.020 1.016-1.022 Urine Protein NEGATIVE NEGATIVE Urine Glucose (UA) NEGATIVE NEGATIVE Urine Ketones NEGATIVE NEGATIVE Urine Nitrite NEGATIVE NEGATIVE Urine Bilirubin NEGATIVE NEGATIVE Urine Urobilinogen 0.2 < = 1.0 MG/DL Urine Leukocyte Esterase TRACE NEGATIVE Urine RBC (Auto) 3+ H NEGATIVE Urine RBC 50-100 H /HPF Urine WBC 0-2 /HPF Urine Squamous Epithelial Cells 10-25 H /HPF Urine Crystals NONE /LPF Urine Bacteria FEW H /HPF Urine Casts NONE /LPF Urine Mucus SMALL H /LPF Urine Culture Indicated NO White Blood Count 7.6 4.3-11.0 10^3/uL Red Blood Count 4.46 4.35-5.85 10^6/uL Hemoglobin 12.0 11.5-16.0 G/DL Hematocrit 38 35-52 % Mean Corpuscular Volume 84 80-99 FL Mean Corpuscular Hemoglobin 27 25-34 PG Mean Corpuscular Hemoglobin Concent 32 32-36 G/DL Red Cell Distribution Width 16.0 H 10.0-14.5 % Platelet Count 219 130-400 10^3/uL Mean Platelet Volume 10.9 H 7.4-10.4 FL Neutrophils (%) (Auto) 63 42-75 % Lymphocytes (%) (Auto) 23 12-44 % Monocytes (%) (Auto) 11 0-12 % Eosinophils (%) (Auto) 3 0-10 % Basophils (%) (Auto) 0 0-10 % Neutrophils # (Auto) 4.7 1.8-7.8 X 10^3 Lymphocytes # (Auto) 1.7 1.0-4.0 X 10^3 Monocytes # (Auto) 0.9 0.0-1.0 X 10^3 Eosinophils # (Auto) 0.2 0.0-0.3 10^3/uL Basophils # (Auto) 0.0 0.0-0.1 10^3/uL Sodium Level 139 135-145 MMOL/L Potassium Level 3.9 3.6-5.0 MMOL/L Chloride Level 106 98-107 MMOL/L Carbon Dioxide Level 23 21-32 MMOL/L Anion Gap 10 5-14 MMOL/L Blood Urea Nitrogen 6 L 7-18 MG/DL Creatinine 0.84 0.60-1.30 MG/DL Estimat Glomerular Filtration Rate > 60 BUN/Creatinine Ratio 7 Glucose Level 90 70-105 MG/DL Calcium Level 8.5 8.5-10.1 MG/DL Corrected Calcium 8.5 8.5-10.1 MG/DL Total Bilirubin 0.2 0.1-1.0 MG/DL Aspartate Amino Transf (AST/SGOT) 15 5-34 U/L Alanine Aminotransferase (ALT/SGPT) 12 0-55 U/L Alkaline Phosphatase 83 40-136 U/L Total Protein 7.4 6.4-8.2 GM/DL Albumin 4.0 3.2-4.5 GM/DL Lipase 8 8-78 U/L Human Chorionic Gonadotropin, Quant 2258 H <5 MIU/ML My Orders Orders - ALEAH MENDOZA MD Cbc With Automated Diff (03/24/19 18:56) Comprehensive Metabolic Panel (03/24/19 18:56) Hcg,Quantitative (03/24/19 18:56) Abo Rh Type (03/24/19 18:56) Ed Iv/Invasive Line Start (03/24/19 18:56) Ua Culture If Indicated (03/24/19 18:56) Lipase (03/24/19 19:18) Lidocaine 2% Viscous 15 Ml (Xylocaine Vi (03/24/19 19:30) Antacid Suspension (Mylanta Suspension (03/24/19 19:30) Famotidine Injection (Pepcid Injection) (03/24/19 20:15) Rhogam Administration (03/24/19 20:15) Rh Immune Globulin Rhophylac (03/24/19 20:15) Rhogam Administration (03/24/19 20:15) Medications Given in ED Current Medications Medications Dose Ordered Sig/Nicko Route Start Time Stop Time Status Last Admin Dose Admin Al Hydrox/Mg Hydrox/Simethicone 30 ml ONCE ONCE PO 03/24/19 19:30 03/24/19 19:31 DC 03/24/19 19:31 30 ML Famotidine 20 mg ONCE ONCE IVP 03/24/19 20:15 03/24/19 20:16 DC 03/24/19 20:29 20 MG Lidocaine HCl 15 ml ONCE ONCE PO 03/24/19 19:30 03/24/19 19:31 DC 03/24/19 19:31 15 ML Vital Signs/I&O 03/24/19 03/24/19 19:04 20:52 Temp 36.6 36.6 Pulse 94 94 Resp 20 20 B/P (MAP) 137/78 (97) 137/78 (97) Pulse Ox 98 98 O2 Delivery Room Air Room Air Capillary Refill : Less Than 3 Seconds Blood Pressure Mean: 97 POS Progress Note : Progress Note Patient's tenderness is in the epigastric region. There is no pain or tenderness in the pelvic region. GI cocktail alleviated her pain. A dose of IV Pepcid was administered. Patient was instructed to follow up with her carpet inspector next week as scheduled. She is to continue with Pepcid until then and observe some dietary restrictions. Return precautions were discussed. Patient's blood type was O-. A RhoGAM injection was administered. Departure Impression Primary Impression: Blood type, Rh negative Additional Impressions: Epigastric pain Bleeding in early Disposition: 01 HOME, SELF-CARE Condition: Improved Departure-Patient Inst. Decision time for Depature: 20:20 Referrals: LAWANDA CANO MD (PCP/Family) Primary Care Physician Patient Instructions: Acute Abdomen (Belly Pain), Bleeding With , in Rh-Negative Women Add. Discharge Instructions: Take Pepcid (famotidine) 20 mg twice daily for the next couple of weeks. You may add Tums per package instructions for additional relief of upper abdominal pain. Avoid the following: Eating large meals, eating close to bedtime, caffeine, carbonation, citrus fruits and juices, chocolate, alcohol, tobacco, tomato products, fatty or greasy foods, mints, NSAID medications such as ibuprofen or naproxen, spicy foods, or anything else you know irritates your stomach. Keep your appointment with Dr. Schilling on Tuesday. If you have increased bleeding more than menstrual flow, fever, or pain in the pelvic region, please return to care. If you return to care prior to 7:00 a.m. on Tuesday, it may be beneficial to present to a facility that can provide ultrasound services. Observe vaginal rest meaning no intercourse and nothing in the vagina until follow-up with Dr. Schilling. Your blood type is O- necessitating the RhoGAM injection. All discharge instructions reviewed with patient and/or family. Voiced understanding. Copy Copies To 1: ENLLA SCHILLING DO Copies To 2: LAWANDA CANO MD, JOSHUA T MD Mar 24, 2019 19:48 POS
[2019-03-24 19:53] LABS: ALANINE AMINOTRANSFERASE 12 U/L (0-55); ALKALINE PHOSPHATASE 83 U/L (40-136); BILIRUBIN,TOTAL 0.2 MG/DL (0.1-1.0); BUN/CREATININE RATIO 7; CALCIUM 8.5 MG/DL (8.5-10.1); CARBON DIOXIDE 23 MMOL/L (21-32); CHLORIDE 106 MMOL/L (98-107); CREATININE SERUM 0.84 MG/DL (0.60-1.30); GFR ESTIMATED > 60; GLUCOSE 90 MG/DL (70-105); LIPASE 8 U/L (8-78); POTASSIUM 3.9 MMOL/L (3.6-5.0); SODIUM 139 MMOL/L (135-145); TOTAL PROTEIN 7.4 GM/DL (6.4-8.2)
[2019-03-24] MEDS ORDERED: FAMOTIDINE 20MG/2ML IV (PEPCID) IVP ONE (20:15)
[2019-03-24 20:52] VITALS: BP 137/78
--- OUTSIDE RECORDS SUMMARY | 2019-04-19 01:29 | XMS REPORT | Continuity of Care Document ---
Author Organization Unknown Address Unknown Phone Unavailable Allergies Active Description Code Type Severity Reaction Onset Reported/Identified Relationship to Patient Clinical Status Yes hydrocodone [id number] Drug Aller gy Unknown NAUSEA 06/26/2014 Yes No Known Drug Allergies [id number] Drug Allergy Unknown N/A 07/15/2018 Medications There is no data. Problems Date Dx Coded Attending Type Code Diagnosis Diagnosed By 10/08/2009 Ot 620.2 10/08/2009 Ot 789.09 11/13/2009 Ot 845.00 11/13/2009 Ot 959.7 11/13/2009 Ot E000.8 11/13/2009 Ot E849.0 11/13/2009 Ot E883.9 05/14/2010 Ot 923.20 05/14/2010 Ot 959.4 05/14/2010 Ot E000.8 05/14/2010 Ot E849.0 05/14/2010 Ot E917.9 12/10/2010 Ot 845.00 SPR AIN OF ANKLE NOS 12/10/2010 Ot 959.7 LOWE R LEG INJURY NOS 12/10/2010 Ot E000.8 OT ER EXTERNAL CAUSE STATUS 12/10/2010 Ot E849.0 ACC IDENT IN HOME 12/10/2010 Ot E880.9 FAL L ON STAIR/STEP NEC 06/26/2011 Ot 719.41 MINI NT PAIN-SHLDER 06/26/2011 Ot 726.10 BUR SVETLANA TENDONS DIS SHLDER NOS 09/07/2011 Ot 923.20 CON TUSION OF HAND(S) 09/07/2011 Ot 959.4 HAND INJURY NOS 09/07/2011 Ot E000.8 OT ER EXTERNAL CAUSE STATUS 09/07/2011 Ot E849.0 ACC IDENT IN HOME 09/07/2011 Ot E917.4 STA T OB W/O SUB FALL NEC 10/31/2011 Ot 786.52 FIGUEROA NFUL RESPIRATION 01/24/2012 Ot 719.45 MINI NT PAIN-PELVIS 01/24/2012 Ot 924.01 CON TUSION OF HIP 01/24/2012 Ot E000.8 OTH ER EXTERNAL CAUSE STATUS 01/24/2012 Ot E888.9 FAL L NOS 05/27/2012 Ot 719.46 MINI NT PAIN-L/LEG 12/11/2012 KELLY FRENCH, ALEAH Suarez Ot 924.11 CONTUSION OF KNEE 12/11/2012 ALEAH MENDOZA MD Ot 959.7 LOWER LEG INJURY NOS 12/11/2012 ALEAH MENDOZA MD Ot E000.8 OTHER EXTERNAL CAUSE STATUS 12/11/2012 ALEAH MENDOZA MD Ot E849.4 ACCID IN RECREATION AREA 12/11/2012 ALEAH MENDOZA MD Ot E888.9 FALL NOS 03/10/2013 DAMION CRAWFORD APRN Ot 845.00 SPRAIN OF ANKLE NOS 03/10/2013 DAMION CRAWFORD APRN Ot 959 .7 LOWER LEG INJURY NOS 03/10/2013 DAMION CRAWFORD BOSOM PRESSER Ot E000.8 OTHER EXTERNAL CAUSE STATUS 03/10/2013 [...] Ot E916 STRUCK BY FALLING OBJECT 10/14/2013 CRAWFORD, PETER J BOSOM PRESSER Ot 724 .2 LUMBAGO 01/29/2014 DAMION CRAWFORD BOSOM PRESSER Ot 599 .0 URIN TRACT INFECTION NOS 01/29/2014 DAMION CRAWFORD BOSOM PRESSER Ot 789.09 ABDOMINAL PAIN, OTHER SPECIFIED SITE 02/02/2014 TERRI ALEXANDER DO Ot 789.01 ABDOMINAL PAIN, RIGHT UPPER QUADRANT 06/28/2014 Ot 599.0 URIN TRACT INFECTION NOS 07/18/2014 Ot 789.05 10/16/2014 JEROME RFENCH, LAWANDA R Ot 715. 36 11/16/2014 Ot 620.2 11/16/2014 Ot 719.47 11/16/2014 JEROME FRENCH, LAWANDA R Ot 780. 99 11/16/2014 JEROME FRENCH, LAWANDA R Ot 784. 49 11/16/2014 JEROME FRENCH, LAWANDA R Ot 790. 29 11/16/2014 Ot 789.05 11/16/2014 JEROME FRENCH, LAWANDA R Ot 715. 36 11/16/2014 ROGELIO BARON Ot 847.2 SPRAIN LUMBAR [...] 719.47 05/06/2015 JEROME FRENCH, LAWANDA R Ot 780. 99 05/06/2015 JEROME FRENCH, LAWANDA R Ot 784. 49 05/06/2015 JEROME FRENCH, LAWANDA R Ot 790. 29 05/06/2015 Ot 789.05 05/06/2015 JEROME FRENCH, LAWANDA R Ot 715. 36 05/06/2015 Ot 789.01 05/06/2015 Ot 789.06 05/06/2015 DAMION CRAWFORD BOSOM PRESSER Ot K52 .9 NONINFECTIVE GASTROENTERITIS AND COLITIS 11/26/2015 DAMION CRAWFORD BOSOM PRESSER Ot N20 .0 CALCULUS OF KIDNEY 11/26/2015 DAMION CRAWFORD BOSOM PRESSER Ot N83.20 UNSPECIFIED OVARIAN CYSTS 11/26/2015 DAMION CRAWFORD BOSOM PRESSER Ot R10.31 RIGHT LOWER QUADRANT PAIN 11/28/2015 Ot 719.47 MINI NT PAIN-ANKLE 11/28/2015 JEROME FRENCH, LAWANDA R Ot 780. 99 OTHER GENERAL SYMPTOMS NOS 11/28/2015 JEROME FRENCH, LAWANDA R Ot 784. 49 OTHER VOICE AND RESONANCE DISORDERS 11/28/2015 JEROME FRENCH, LAWANDA R Ot 790. 29 OTHER ABNORMAL GLUCOSE 11/28/2015 Ot 789.05 ABD OMINAL PAIN, PERIUMBILIC 11/28/2015 JEROME FRENCH LAWANDA R Ot 715. 36 LOC OSTEOARTH NOS-L/LEG 11/28/2015 Ot 789.01 ABD OMINAL PAIN, RIGHT UPPER QUADRANT 11/28/2015 Ot 789.06 ABD OMINAL PAIN, EPIGASTRIC 05/07/2016 Ot 719.47 MINI NT PAIN-ANKLE 05/07/2016 JEROME FRENCH LAWANDA R Ot 780. 99 OTHER GENERAL SYMPTOMS NOS 05/07/2016 JEROME FRENCH LAWANDA R Ot 784. 49 OTHER VOICE AND RESONANCE DISORDERS 05/07/2016 JEROME FRENCH, LAWANDA R Ot 790. 29 OTHER ABNORMAL GLUCOSE 05/07/2016 Ot 789.05 ABD OMINAL PAIN, PERIUMBILIC 05/07/2016 JEROME FRENCH LAWANDA R Ot 715. 36 LOC OSTEOARTH NOS-L/LEG 05/07/2016 Ot 789.01 ABD OMINAL PAIN, RIGHT UPPER QUADRANT 05/07/2016 Ot 789.06 ABD OMINAL PAIN, EPIGASTRIC 05/07/2016 DAMION CRAWFORD BOSOM PRESSER Ot R11 .2 NAUSEA WITH VOMITING, UNSPECIFIED 05/07/2016 DAMION CRAWFORD BOSOM PRESSER Ot R19 .7 DIARRHEA, UNSPECIFIED 05/10/2016 DAMION CRAWFORD BOSOM PRESSER Ot R11 .2 NAUSEA WITH VOMITING, UNSPECIFIED 05/10/2016 DAMION CRAWFORD BOSOM PRESSER Ot R19 .7 DIARRHEA, UNSPECIFIED 06/23/2016 ALEKSANDRA FRENCH, TIANA Greene Ot I88. 0 NONSPECIFIC MESENTERIC LYMPHADENITIS 06/23/2016 ALEKSANDRA FRENCH, TIANA A Ot R10. 31 RIGHT LOWER QUADRANT PAIN 06/25/2016 ALEKSANDRA FRENCH, TIANA A Ot I88. 0 NONSPECIFIC MESENTERIC LYMPHADENITIS 06/25/2016 ALEKSANDRA FRENCH, TIANA A Ot R10. 31 RIGHT LOWER QUADRANT PAIN 07/27/2016 ALEKSANDRA FRENCH, TIANA A Ot I88. 0 NONSPECIFIC MESENTERIC LYMPHADENITIS 07/27/2016 ALEKSANDRA FRENCH, TIANA A Ot R10. 31 RIGHT LOWER QUADRANT PAIN 08/03/2016 JEROME FRENCH LAWANDA R Ot R10. 11 RIGHT UPPER QUADRANT PAIN 08/21/2016 JEROME FRENCH LAWANDA R Ot R10. 11 RIGHT UPPER QUADRANT PAIN 09/02/2016 BRADEN CANO MDYD R Ot R10. 11 RIGHT UPPER QUADRANT PAIN 09/03/2016 BRADEN CANO MDYD R Ot R10. 11 RIGHT UPPER QUADRANT PAIN 09/09/2016 JEROME FRENCH, LAWANDA R Ot R10. 11 RIGHT UPPER QUADRANT PAIN 09/22/2016 ROGELIO BARON Ot M54.5 LOW BACK PAIN 09/22/2016 ROGELIO BARON Ot S39.012A STRAIN OF MUSCLE, FASCIA AND TENDON OF L 09/22/2016 ROGELIO BARON Ot X50.9XXA OTHER AND UNSPECIFIED OVREXRTN OR STRNOU 09/22/2016 ROGELIO BARON Ot Y99.8 OTHER EXTERNAL CAUSE STATUS 10/22/2016 JEROME FRENCH, LAWANDA R Ot R10. 11 RIGHT UPPER QUADRANT PAIN 11/05/2016 DAMION CRAWFORD APRN Ot R11 .2 NAUSEA WITH VOMITING, UNSPECIFIED 11/05/2016 DAMION CRAWFORD APRN Ot R19 .7 DIARRHEA, UNSPECIFIED 08/11/2017 DAMION CRAWFORD APRN Ot M79.632 PAIN IN LEFT FOREARM 08/11/2017 DAMION CRAWFORD APRN Ot S13.4XXA SPRAIN OF LIGAMENTS OF CERVICAL SPINE, I 08/11/2017 DAMION CRAWFORD APRN Ot S50.12XA CONTUSION OF LEFT FOREARM, INITIAL ENCOU 08/11/2017 DAMION CRAWFORD APRN Ot W17.89XA OTHER FALL FROM ONE LEVEL TO ANOTHER, IN 08/11/2017 DAMION CRAWFORD APRN Ot Y92.[address] IN [place] NON-[facility]IT[facility] (PRIVATE 08/11/2017 DAMION CRAWFORD APRN Ot Z79.52 CORRECTION (CURRENT) USE OF SYSTEMIC STER 08/11/2017 DAMION CRAWFORD BOSOM PRESSER Ot Z82.49 FAMILY HX OF ISCHEM HEART DIS AND OTH DI 08/15/2017 DAMION CRAWFORD APRN Ot M79.632 PAIN IN LEFT FOREARM 08/15/2017 DAMION CRAWFORD APRN Ot S13.4XXA SPRAIN OF LIGAMENTS OF CERVICAL SPINE, I 08/15/2017 DAMION CRAWFORD APRN Ot S50.12XA CONTUSION OF LEFT FOREARM, INITIAL ENCOU 08/15/2017 DAMION CRAWFORD APRN Ot W17.89XA OTHER FALL FROM ONE LEVEL TO ANOTHER, IN 08/15/2017 DAMION CRAWFORD APRN Ot Y92.[address] IN [place] NON-[facility] (PRIVATE 08/15/2017 DAMION CRAWFORD APRN Ot 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 99 OTHER GENERAL SYMPTOMS NOS 11/21/2017 JEROME FRENCH, LAWANDA R Ot 784. 49 OTHER VOICE AND RESONANCE DISORDERS 11/21/2017 JEROME FRENCH, LAWANDA R Ot 790. 29 OTHER ABNORMAL GLUCOSE 11/21/2017 Ot 789.05 ABD OMINAL PAIN, PERIUMBILIC 11/21/2017 JEROME FRENCH, LAWANDA R Ot 715. 36 LOC OSTEOARTH NOS-L/LEG 11/21/2017 Ot 789.01 ABD OMINAL PAIN, RIGHT UPPER QUADRANT 11/21/2017 Ot 789.06 ABD OMINAL PAIN, EPIGASTRIC 11/21/2017 JEROME FRENCH, LAWANDA R Ot R10. 11 RIGHT UPPER QUADRANT PAIN 03/01/2018 JETT PORTILLO Ot K02.9 DENTAL CARIES, UNSPECIFIED 03/01/2018 JETT PORTILLO Ot K04.7 PERIAPICAL ABSCESS WITHOUT SINUS 03/01/2018 JETT PORTILLO Ot K08.89 OTHER SPECIFIED DISORDERS OF TEETH AND S 03/03/2018 JETT PORTILLO Ot K02.9 DENTAL CARIES, UNSPECIFIED 03/03/2018 BERNOT, JETT Ot K04.7 PERIAPICAL ABSCESS WITHOUT SINUS 03/03/2018 AVERY PORTILLOIS Ot K08.89 OTHER SPECIFIED DISORDERS OF TEETH AND S 07/15/2018 DAMION CRAWFORD APRN Ot L30 .4 ERYTHEMA INTERTRIGO 07/15/2018 DAMION CRAWFORD BOSOM PRESSER Ot R21 RASH AND OTHER NONSPECIFIC SKIN ERUPTION 07/15/2018 DAMION CRAWFORD BOSOM PRESSER Ot 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 07/15/2018 DAMION CRAWFORD BOSOM PRESSER Ot Z82.49 FAMILY HX OF ISCHEM HEART DIS AND OTH DI 07/18/2018 BERNAVERY SANDOVALIS Ot J40 BRONCHITIS, NOT SPECIFIED ACUTE OR CH 07/18/2018 BERNOTAVERYIS Ot J98.8 OTHER SPECIFIED RESPIRATORY DISORDERS 07/18/2018 BERNJETT SANDOVAL Ot R50.9 FEVER, UNSPECIFIED 07/18/2018 BERNAVERY SANDOVALIS Ot Z82.49 FAMILY HX OF ISCHEM HEART DIS AND OTH DI 07/21/2018 BERNJETT SANDOVAL Ot J40 BRONCHITIS, NOT SPECIFIED ACUTE OR CH 07/21/2018 BERNAVERY SANDOVALIS Ot J98.8 OTHER SPECIFIED RESPIRATORY DISORDERS 07/21/2018 BERNOTAVERYIS Ot R50.9 FEVER, UNSPECIFIED 07/21/2018 BERNOTAVERYIS Ot Z82.49 FAMILY HX OF ISCHEM HEART DIS AND OTH DI 10/31/2018 ALEAH MENDOZA MD Ot E66.9 OBESITY, UNSPECIFIED 10/31/2018 ALEAH MENDOZA MD Ot R07.81 PLEURODYNIA 10/31/2018 ALEAH MENDOZA MD Ot R07.89 OTHER CHEST PAIN 10/31/2018 ALEAH MENDOZA MD Ot Z68.41 BODY MASS INDEX (BMI) 40.0-44.9, ADULT 10/31/2018 ALEAH MENDOZA MD Ot Z82.49 FAMILY HX OF ISCHEM HEART DIS AND OTH DI 03/30/2019 ALEAH MENDOZA MD Ot O20.9 HEMORRHAGE IN EARLY , UNSPECIFI 03/30/2019 ALEAH MENDOZA MD Ot O26.891 OTH RELATED CONDITIONS, FIRST 03/30/2019 ALEAH MENDOZA MD, Ot O99.211 OBESITY COMPLICATING , FIRST TR 03/30/2019 ALEAH MENDOZA MD, Ot R10.13 EPIGASTRIC PAIN 03/30/2019 ALEAH MENDOZA MD, Ot Z3A.01 LESS THAN 8 WEEKS GESTATION OF 03/30/2019 ALEAH MENDOZA MD, Ot Z67.91 UNSPECIFIED BLOOD TYPE, RH NEGATIVE 03/30/2019 ALEAH MENDOZA MD, Ot Z68.41 BODY MASS INDEX (BMI) 40.0-44.9, ADULT Procedures There is no data. Results Test Result Range Comprehensive metabolic panel - 11/26/15 18:18 Serum or plasma sodium measurement (moles/volume) 137 mmol/L 135-145 Serum or plasma potassium measurement (moles/volume) 3.8 mmol/L 3.6-5.0 Serum or plasma chloride measurement (moles/volume) 105 mmol/L 98-107 Carbon dioxide 25 mmol/L 21-32 Serum or plasma anion gap determination (moles/volume) 7 mmol/L 5-14 Serum or plasma urea nitrogen measurement (mass/volume ) 6 mg/dL 7-18 Serum or plasma creatinine measurement (mass/volume) 0.84 mg/dL 0.60-1.30 Serum or plasma urea nitrogen/creatinine mass ratio 7 NRG Serum or plasma creatinine measurement w ith calculation of estimated glomerular filtration rate > NRG Serum or plasma glucose measurement (mass/volume) 86 mg/dL 70-105 Serum or plasma calcium measurement (mass/volume) 9.2 mg/dL 8.5-10.1 Serum or plasma total bilirubin measurement (mass/volu me) 0.3 mg/dL 0.1-1.0 Serum or plasma alkaline phosphatase aaron surement (enzymatic activity/volume) 78 U/L 40-136 Serum or plasma aspartate aminotransfera se measurement (enzymatic activity/volume) 16 U/L 5-34 Serum or plasma alanine aminotransferase measurement (enzymatic activity/volume) 9 U/L 0-55 Serum or plasma protein measurement (mass/volume) 7.2 g/dL 6.4-8.2 Serum or plasma albumin measurement (mass/volume) 4.0 g/dL 3.2-4.5 Urine beta human chorionic gonadotropin (hCG) measurement - 11/26/15 19:00 Urine beta human chorionic gonadotropin (hCG) measurem ent NEGATIVE NEGATIVE Complete urinalysis with reflex to cultu re - 11/26/15 19:00 Urine color determination YELLOW NRG Urine clarity determination CLEAR NR G Urine pH measurement by test strip 6 5-9 Specific gravity of urine by test strip 1.020 1.016-1.022 Urine protein assay by test strip, semi-quantitative 1+ NEGATIVE Urine glucose detection by automated test strip NE GATIVE NEGATIVE Erythrocytes detection in urine sediment by light micr oscopy 1+ NEGATIVE Urine ketones detection by automated test strip NE GATIVE NEGATIVE Urine nitrite detection by test strip NEGATIVE NEGATIVE Urine total bilirubin detection by test strip NEGA TIVE NEGATIVE Urine urobilinogen measurement by automated test strip (mass/volume) 1 mg/dL NORMAL Urine leukocyte esterase detection by dipstick 1+ NEGATIVE Automated urine sediment erythrocyte cou nt by microscopy (number/high power field) NONE NRG Automated urine sediment leukocyte count by microscopy (number/high power field) [HPF] NRG Bacteria detection in urine sediment by light microsco py MODERATE NRG Squamous epithelial cells detection in u rine sediment by light microscopy 10-25 NRG Crystals detection in urine sediment by light microsco py NONE NRG Casts detection in urine sediment by light microscopy NONE NRG Mucus detection in urine sediment by light microscopy NEGATIVE NRG Complete urinalysis with reflex to culture NO NRG Complete blood count (CBC) with automate d white blood cell (WBC) differential - 11/26/15 19:08 Blood leukocytes automated count (number/volume) 10.1 10*3/uL 4.3-11.0 Blood erythrocytes automated count (number/volume) 4.58 10*6/uL 4.35-5.85 Venous blood hemoglobin measurement (mass/volume) 12.9 g/dL 11.5-16.0 Blood hematocrit (volume fraction) 39 % 35-52 Automated erythrocyte mean corpuscular volume 86 [ foz_us] 80-99 Automated erythrocyte mean corpuscular h emoglobin (mass per erythrocyte) 28 pg 25-34 Automated erythrocyte mean corpuscular h emoglobin concentration measurement (mass/volume) 33 g/dL 32-36 Automated erythrocyte distribution width ratio 15. 0 % 10.0- 14.5 Automated blood platelet count (count/volume) 213 10*3/uL [...] 10*3 1.0-4.0 Blood monocytes automated count (number/volume) 1. 0 10*3 0.0-1.0 Automated eosinophil count 0.4 10*3/uL 0 .0-0.3 Automated blood basophil count (count/volume) 0.1 10*3/uL 0.0-0.1 Complete blood count (CBC) with automate d white blood cell (WBC) differential - 05/07/16 12:50 Blood leukocytes automated count (number/volume) 11.7 10*3/uL 4.3-11.0 Blood erythrocytes automated count (number/volume) 4.77 10*6/uL 4.35-5.85 Venous blood hemoglobin measurement (mass/volume) 13.4 g/dL 11.5-16.0 Blood hematocrit (volume fraction) 41 % 35-52 Automated erythrocyte mean corpuscular volume 86 [ foz_us] 80-99 Automated erythrocyte mean corpuscular h emoglobin (mass per erythrocyte) 28 pg 25-34 Automated erythrocyte mean corpuscular h emoglobin concentration measurement (mass/volume) 33 g/dL 32-36 Automated erythrocyte distribution width ratio 14. 3 % 10.0- 14.5 Automated blood platelet count (count/volume) 210 10*3/uL [...] 10*3 1.0-4.0 Blood monocytes automated count (number/volume) 0. 6 10*3 0.0-1.0 Automated eosinophil count 0.0 10*3/uL 0 .0-0.3 Automated blood basophil count (count/volume) 0.0 10*3/uL 0.0-0.1 Blood manual differential performed dete ction - 05/07/16 12:50 Blood monocytes/100 leukocytes 5 % NRG Manual blood segmented neutrophils/100 leukocytes 86 % NRG Blood band neutrophils/100 leukocytes 3 % NRG Manual blood lymphocytes/100 leukocytes 5 % NRG Manual eosinophils/100 leukocytes in nose 1 % NRG Manual blood basophils/100 leukocytes 0 % NRG Blood erythrocyte morphology finding identification NORMAL NRG Comprehensive metabolic panel - 05/07/16 12:50 Serum or plasma sodium measurement (moles/volume) 139 mmol/L 135-145 Serum or plasma potassium measurement (moles/volume) 3.8 mmol/L 3.6-5.0 Serum or plasma chloride measurement (moles/volume) 106 mmol/L 98-107 Carbon dioxide 23 mmol/L 21-32 Serum or plasma anion gap determination (moles/volume) 10 mmol/L 5-14 Serum or plasma urea nitrogen measurement (mass/volume ) 9 mg/dL 7-18 Serum or plasma creatinine measurement (mass/volume) 0.81 mg/dL 0.60-1.30 Serum or plasma urea nitrogen/creatinine mass ratio 11 NRG Serum or plasma creatinine measurement w ith calculation of estimated glomerular filtration rate > NRG Serum or plasma glucose measurement (mass/volume) 112 mg/dL 70-105 Serum or plasma calcium measurement (mass/volume) 8.5 mg/dL 8.5-10.1 Serum or plasma total bilirubin measurement (mass/volu me) 0.4 mg/dL 0.1-1.0 Serum or plasma alkaline phosphatase aaron surement (enzymatic activity/volume) 79 U/L 40-136 Serum or plasma aspartate aminotransfera se measurement (enzymatic activity/volume) 16 U/L 5-34 Serum or plasma alanine aminotransferase measurement (enzymatic activity/volume) 15 U/L 0-55 Serum or plasma protein measurement (mass/volume) 7.2 g/dL 6.4-8.2 Serum or plasma albumin measurement (mass/volume) 3.9 g/dL 3.2-4.5 Complete urinalysis with reflex to cultu re - 06/23/16 19:40 Urine color determination YELLOW NRG Urine clarity determination CLEAR NR G Urine pH measurement by test strip 6.5 5-9 Specific gravity of urine by test strip 1.020 1.016-1.022 Urine protein assay by test strip, semi-quantitative NEGATIVE NEGATIVE Urine glucose detection by automated test strip NE GATIVE NEGATIVE Erythrocytes detection in urine sediment by light micr oscopy NEGATIVE NEGATIVE Urine ketones detection by automated test strip NE GATIVE NEGATIVE Urine nitrite detection by test strip NEGATIVE NEGATIVE Urine total bilirubin detection by test strip NEGA TIVE NEGATIVE Urine urobilinogen measurement by automated test strip (mass/volume) NORMAL NORMAL Urine leukocyte esterase detection by dipstick NEG ATIVE NEGATIVE Automated urine sediment erythrocyte cou nt by microscopy (number/high power field) NONE NRG Automated urine sediment leukocyte count by microscopy (number/high power field) NONE NRG Bacteria detection in urine sediment by light microsco py FEW NRG Squamous epithelial cells detection in u rine sediment by light microscopy 2-5 NRG Crystals detection in urine sediment by light microsco py NONE NRG Casts detection in urine sediment by light microscopy NONE NRG Mucus detection in urine sediment by light microscopy SMALL NRG Complete urinalysis with reflex to culture NO NRG Complete blood count (CBC) with automate d white blood cell (WBC) differential - 06/23/16 19:45 Blood leukocytes automated count (number/volume) 9.2 10*3/uL 4.3-11.0 Blood erythrocytes automated count (number/volume) 4.60 10*6/uL 4.35-5.85 Venous blood hemoglobin measurement (mass/volume) 12.9 g/dL 11.5-16.0 Blood hematocrit (volume fraction) 39 % 35-52 Automated erythrocyte mean corpuscular volume 85 [ foz_us] 80-99 Automated erythrocyte mean corpuscular h emoglobin (mass per erythrocyte) 28 pg 25-34 Automated erythrocyte mean corpuscular h emoglobin concentration measurement (mass/volume) 33 g/dL 32-36 Automated erythrocyte distribution width ratio 14. 0 % 10.0- 14.5 Automated blood platelet count (count/volume) 207 10*3/uL [...] 10*3 1.0-4.0 Blood monocytes automated count (number/volume) 0. 7 10*3 0.0-1.0 Automated eosinophil count 0.3 10*3/uL 0 .0-0.3 Automated blood basophil count (count/volume) 0.0 10*3/uL 0.0-0.1 Comprehensive metabolic panel - 06/23/16 19:45 Serum or plasma sodium measurement (moles/volume) 143 mmol/L 135-145 Serum or plasma potassium measurement (moles/volume) 3.9 mmol/L 3.6-5.0 Serum or plasma chloride measurement (moles/volume) 109 mmol/L 98-107 Carbon dioxide 20 mmol/L 21-32 Serum or plasma anion gap determination (moles/volume) 14 mmol/L 5-14 Serum or plasma urea nitrogen measurement (mass/volume ) 8 mg/dL 7-18 Serum or plasma creatinine measurement (mass/volume) 0.82 mg/dL 0.60-1.30 Serum or plasma urea nitrogen/creatinine mass ratio 10 NRG Serum or plasma creatinine measurement w ith calculation of estimated glomerular filtration rate > NRG Serum or plasma glucose measurement (mass/volume) 72 mg/dL 70-105 Serum or plasma calcium measurement (mass/volume) 8.7 mg/dL 8.5-10.1 Serum or plasma total bilirubin measurement (mass/volu me) 0.2 mg/dL 0.1-1.0 Serum or plasma alkaline phosphatase aaron surement (enzymatic activity/volume) 103 U/L 40-136 Serum or plasma aspartate aminotransfera se measurement (enzymatic activity/volume) 18 U/L 5-34 Serum or plasma alanine aminotransferase measurement (enzymatic activity/volume) 15 U/L 0-55 Serum or plasma protein measurement (mass/volume) 7.2 g/dL 6.4-8.2 Serum or plasma albumin measurement (mass/volume) 4.0 g/dL 3.2-4.5 Lipase - 03/01/17 19:45 Lipase 11 U/L 8-78 Influenza virus A and B antigen detectio n - 07/18/18 20:06 FLU RESULT NEGATIVE FOR INFLUENZA A AND B ANTIGENS BY [facility] Complete blood count (CBC) with automate d white blood cell (WBC) differential - 10/31/18 18:10 Blood leukocytes automated count (number/volume) 9.4 10*3/uL 4.3-11.0 Blood erythrocytes automated count (number/volume) 4.43 10*6/uL 4.35-5.85 Venous blood hemoglobin measurement (mass/volume) 11.7 g/dL 11.5-16.0 Blood hematocrit (volume fraction) 37 % 35-52 Automated erythrocyte mean corpuscular volume 83 [ foz_us] 80-99 Automated erythrocyte mean corpuscular h emoglobin (mass per erythrocyte) 26 pg 25-34 Automated erythrocyte mean corpuscular h emoglobin concentration measurement (mass/volume) 32 g/dL 32-36 Automated erythrocyte distribution width ratio 16. 0 % 10.0- 14.5 Automated blood platelet count (count/volume) 226 10*3/uL 130-400 Automated blood platelet mean volume measurement 11.1 [foz_us] 7.4-10.4 Automated blood neutrophils/100 leukocytes 68 % 42-75 Automated blood lymphocytes/100 leukocytes 20 % 12-44 Blood monocytes/100 leukocytes 11 % 0-12 Automated blood eosinophils/100 leukocytes 2 % 0-10 Automated blood basophils/100 leukocytes 0 % 0-10 Blood neutrophils automated count (number/volume) 6.4 10*3 1.8-7.8 Blood lymphocytes automated count (number/volume) 1.9 10*3 1.0-4.0 Blood monocytes automated count (number/volume) 1. 0 10*3 0.0-1.0 Automated eosinophil count 0.2 10*3/uL 0 .0-0.3 Automated blood basophil count (count/volume) 0.0 10*3/uL 0.0-0.1 Comprehensive metabolic panel - 10/31/18 18:10 Serum or plasma sodium measurement (moles/volume) 143 mmol/L 135-145 Serum or plasma potassium measurement (moles/volume) 3.5 mmol/L 3.6-5.0 Serum or plasma chloride measurement (moles/volume) 107 mmol/L 98-107 Carbon dioxide 27 mmol/L 21-32 Serum or plasma anion gap determination (moles/volume) 9 mmol/L 5-14 Serum or plasma urea nitrogen measurement (mass/volume ) 7 mg/dL 7-18 Serum or plasma creatinine measurement (mass/volume) 0.93 mg/dL 0.60-1.30 Serum or plasma urea nitrogen/creatinine mass ratio 8 NRG Serum or plasma creatinine measurement w ith calculation of estimated glomerular filtration rate > NRG Serum or plasma glucose measurement (mass/volume) 97 mg/dL 70-105 Serum or plasma calcium measurement (mass/volume) 9.0 mg/dL 8.5-10.1 Serum or plasma total bilirubin measurement (mass/volu me) 0.3 mg/dL 0.1-1.0 Serum or plasma alkaline phosphatase aaron surement (enzymatic activity/volume) 87 U/L 40-136 Serum or plasma aspartate aminotransfera se measurement (enzymatic activity/volume) 20 U/L 5-34 Serum or plasma alanine aminotransferase measurement (enzymatic activity/volume) 10 U/L 0-55 Serum or plasma protein measurement (mass/volume) 7.2 g/dL 6.4-8.2 Serum or plasma albumin measurement (mass/volume) 4.1 g/dL 3.2-4.5 CALCIUM CORRECTED 8.9 mg/dL 8.5-10.1 Serum or plasma choriogonadotropin (preg lacho test) detection - 10/31/18 18:10 Serum or plasma choriogonadotropin ( test) de tection NEGATIVE NEGATIVE Fibrin D-dimer FEU measurement in platel et poor plasma (mass/volume) - 10/31/18 18:10 Fibrin D-dimer FEU measurement in platelet poor plasma (mass/volume) 0.49 ug/mL 0.00-0.49 Complete urinalysis with reflex to cultu re - 03/24/19 19:05 Urine color determination YELLOW NRG Urine clarity determination CLEAR NR G Urine pH measurement by test strip 6.0 5-9 Specific gravity of urine by test strip 1.020 1.016-1.022 Urine protein assay by test strip, semi-quantitative NEGATIVE NEGATIVE Urine glucose detection by automated test strip NE GATIVE NEGATIVE Erythrocytes detection in urine sediment by light micr oscopy 3+ NEGATIVE Urine ketones detection by automated test strip NE GATIVE NEGATIVE Urine nitrite detection by test strip NEGATIVE NEGATIVE Urine total bilirubin detection by test strip NEGA TIVE NEGATIVE Urine urobilinogen measurement by automated test strip (mass/volume) 0.2 mg/dL < = 1.0 Urine leukocyte esterase detection by dipstick TRA CE NEGATIVE Automated urine sediment erythrocyte cou nt by microscopy (number/high power field) [HPF] NRG Automated urine sediment leukocyte count by microscopy (number/high power field) [HPF] NRG Bacteria detection in urine sediment by light microsco py FEW NRG Squamous epithelial cells detection in u rine sediment by light microscopy 10-25 NRG Crystals detection in urine sediment by light microsco py NONE NRG Casts detection in urine sediment by light microscopy NONE NRG Mucus detection in urine sediment by light microscopy SMALL NRG Complete urinalysis with reflex to culture NO NRG Complete blood count (CBC) with automate d white blood cell (WBC) differential - 03/24/19 19:08 Blood leukocytes automated count (number/volume) 7.6 10*3/uL 4.3-11.0 Blood erythrocytes automated count (number/volume) 4.46 10*6/uL 4.35-5.85 Venous blood hemoglobin measurement (mass/volume) 12.0 g/dL 11.5-16.0 Blood hematocrit (volume fraction) 38 % 35-52 Automated erythrocyte mean corpuscular volume 84 [ foz_us] 80-99 Automated erythrocyte mean corpuscular h emoglobin (mass per erythrocyte) 27 pg 25-34 Automated erythrocyte mean corpuscular h emoglobin concentration measurement (mass/volume) 32 g/dL 32-36 Automated erythrocyte distribution width ratio 16. 0 % 10.0- 14.5 Automated blood platelet count (count/volume) 219 10*3/uL 130-400 Automated blood platelet mean volume measurement 10.9 [foz_us] 7.4-10.4 Automated blood neutrophils/100 leukocytes 63 % 42-75 Automated blood lymphocytes/100 leukocytes 23 % 12-44 Blood monocytes/100 leukocytes 11 % 0-12 Automated blood eosinophils/100 leukocytes 3 % 0-10 Automated blood basophils/100 leukocytes 0 % 0-10 Blood neutrophils automated count (number/volume) 4.7 10*3 1.8-7.8 Blood lymphocytes automated count (number/volume) 1.7 10*3 1.0-4.0 Blood monocytes automated count (number/volume) 0. 9 10*3 0.0-1.0 Automated eosinophil count 0.2 10*3/uL 0 .0-0.3 Automated blood basophil count (count/volume) 0.0 10*3/uL 0.0-0.1 RH IMMUNE GLOBULIN RHOPHYLAC - 03/24/19 19:08 RH IMMUNE GLOBULIN RHOPHYLAC TRANSFUSED 03/24/192036 [facility] ABO+Rh group - 03/24/19 19:08 ABO+Rh group ON NRG Rh immune globulin screen - 03/24/19 19: 08 Rh immune globulin screen 06/11/21 300ug NR Lot number - 03/24/19 19:08 Lot number [id number] [facility] Comprehensive metabolic panel - 03/24/19 19:08 Serum or plasma sodium measurement (moles/volume) 139 mmol/L 135-145 Serum or plasma potassium measurement (moles/volume) 3.9 mmol/L 3.6-5.0 Serum or plasma chloride measurement (moles/volume) 106 mmol/L 98-107 Carbon dioxide 23 mmol/L 21-32 Serum or plasma anion gap determination (moles/volume) 10 mmol/L 5-14 Serum or plasma urea nitrogen measurement (mass/volume ) 6 mg/dL 7-18 Serum or plasma creatinine measurement (mass/volume) 0.84 mg/dL 0.60-1.30 Serum or plasma urea nitrogen/creatinine mass ratio 7 NRG Serum or plasma creatinine measurement w ith calculation of estimated glomerular filtration rate > NRG Serum or plasma glucose measurement (mass/volume) 90 mg/dL 70-105 Serum or plasma calcium measurement (mass/volume) 8.5 mg/dL 8.5-10.1 Serum or plasma total bilirubin measurement (mass/volu me) 0.2 mg/dL 0.1-1.0 Serum or plasma alkaline phosphatase aaron surement (enzymatic activity/volume) 83 U/L 40-136 Serum or plasma aspartate aminotransfera se measurement (enzymatic activity/volume) 15 U/L 5-34 Serum or plasma alanine aminotransferase measurement (enzymatic activity/volume) 12 U/L 0-55 Serum or plasma protein measurement (mass/volume) 7.4 g/dL 6.4-8.2 Serum or plasma albumin measurement (mass/volume) 4.0 g/dL 3.2-4.5 CALCIUM CORRECTED 8.5 mg/dL 8.5-10.1 Lipase - 03/24/19 19:08 Lipase 8 U/L 8-78 Serum or plasma choriogonadotropin measu rement (units/volume) - 03/24/19 19:08 Serum or plasma choriogonadotropin measurement (units/ volume) 2258 m[iU]/mL <5 Encounters ACCT No. Visit Date/Time Discharge Status Pt. Type Provider Facility Loc./Unit Complaint [id number] 03/18/2019 13:45:00 03/18/2019 23:59:5 9 [facility] [id number] 03/24/2019 18:33:00 20:55:00 DIS Outpatient ALEAH MENDOZA MD Via [facility] ER 4-5 PREG. - ABD PAIN / BLEEDING [id number] 10/31/2018 18:05:00 019 20:30:00 DIS Emergency ALEAH MENDOZA MD Via [facility] ER CHEST PAIN,SOA, R ARM PAIN [id number] 07/18/2018 20:06:00 019 21:20:00 DIS Emergency JETT PORTILLO [facility] ER CHEST PAINS, COUGH FEVE R RUNNY NOSE [id number] 07/15/2018 16:18:00 019 16:51:00 DIS Emergency DAMION CRAWFORD APRN [facility] ER SORE/WOUND IN BELLY BUT TON [id number] 03/01/2018 19:04:00 018 21:00:00 DIS Emergency JETT PORTILLO [facility] ER EAR/JAW PAIN [id number] 08/11/2017 15:56:00 018 17:45:00 DIS Emergency DAMION CRAWFORD APRN [facility] ER FALL THRU POOL DECK - L ARM PAIN [id number] 09/22/2016 17:29:00 017 17:54:00 DIS Emergency ROGELIO BARON [facility] ER BACK PAIN [id number] 07/30/2016 06:44:00 017 23:59:59 CLS Outpatient LAWANDA CANO MD [facility] RAD RUQ ABD PAIN [id number] 06/23/2016 19:32:00 017 21:16:00 DIS Emergency TIANA LAKE MD [facility] ER ABD PAIN [id number] 05/07/2016 12:26:00 017 15:33:00 DIS Emergency DAMION CRAWFORD APRN [facility] ER VOMITING, DIARRHEA [id number] 11/26/2015 17:23:00 016 21:17:00 DIS Emergency DAMION CRAWFORD APRN [facility] ER ABD PAIN [id number] 05/06/2015 13:24:00 016 15:47:00 DIS Emergency DAMION CRAWFORD APRN [facility] ER VOMITING/ABD PAIN [id number] 11/16/2014 17:09:00 015 19:22:00 DIS Emergency ROGELIO BARON L [facility] ER BACK PAIN FROM FALL/TR IPPED OVER VACUUM CORD FELL [id number] 10/17/2014 17:32:00 015 23:59:59 CLS Outpatient CARL ZUÑIGA BOSOM PRESSER Via [facility] QUICK [id number] 09/24/2014 15:10:00 015 23:59:59 CLS Outpatient LAWANDA CANO MD [facility] RAD DIFFICULTY ON EXTENSION , FALL W/PAINFUL L KNEE [id number] 02/02/2014 01:48:00 014 05:09:00 DIS Emergency TERRI ALEXANDER DO [facility] ER ABD PAIN [id number] 01/29/2014 15:05:00 014 16:00:00 DIS Emergency DAMION CRAWFORD APRN [facility] ER RT SIDED PAIN [id number] 01/07/2014 17:25:00 23:59:59 CLS Outpatient [id number] 10/14/2013 19:26:00 20:06:00 DIS Emergency DAMION CRAWFORD APRN [facility] ER LOWER BACK PAIN [id number] 10/02/2013 21:32:00 22:42:00 DIS Emergency ROGELIO BARON [facility] ER R FOOT INJ [id number] 07/06/2013 18:52:00 20:20:00 DIS Emergency ROGELIO BARON [facility] ER L HAND PAIN [id number] 06/28/2013 14:24:00 23:59:59 CLS Outpatient LAWANDA CANO MD [facility] LAB HYPERGLYCEIMA [id number] 05/27/2013 01:31:00 03:39:00 DIS Emergency TERRI ALEXANDER DO Vi a [facility] ER RIGHT ABDOMINAL PAIN [id number] 05/01/2013 16:45:00 23:59:59 CLS Outpatient [id number] 03/10/2013 19:46:00 20:40:00 DIS Emergency DAMION CRAWFORD APRN [facility] ER TWISTED RIGHT ANKLE [id number] 03/08/2013 16:18:00 23:59:59 CLS Outpatient LAWANDA CANO MD [facility] LAB COLD,LOWER VOICE [id number] 12/23/2012 19:08:00 23:59:59 CLS Outpatient [id number] 12/11/2012 14:45:00 17:07:00 DIS Emergency ALEAH MENDOZA MD [facility] ER PT FELL AND ONOFRE T KNEE [id number] 12/25/2014 07:00:00 Document Registration [id number] 06/27/2014 11:00:00 Document Registration [id number] 06/26/2014 14:27:00 Document Registration [id number] 05/27/2012 04:30:00 Document Registration [id number] 01/24/2012 15:50:00 Document Registration [id number] 10/31/2011 15:28:00 Document Registration [id number] 09/07/2011 20:18:00 Document Registration [id number] 07/19/2011 15:34:00 Document Registration [id number] 06/26/2011 16:32:00 Document Registration [id number] 12/10/2010 16:50:00 Document Registration [id number] 05/14/2010 17:16:00 Document Registration [id number] 11/12/2009 23:38:00 Document Registration [id number] 10/23/2009 10:09:00 Document Registration [id number] 10/08/2009 15:04:00 Document Registration
== END 2019-03-24 20:55 | disposition home or self-care (01) ==
LOC: EDUNIT# 18:31 → ER 18:33
DX: O26.891 Other specified pregnancy related conditions, first trimester (principal); R10.13 Epigastric pain; O20.9 Hemorrhage in early pregnancy, unspecified; O99.211 Obesity complicating pregnancy, first trimester; Z67.91 Unspecified blood type, Rh negative; Z3A.01 Less than 8 weeks gestation of pregnancy; Z68.41 Body mass index [BMI] 40.0-44.9, adult
CPT/HCPCS: 36415; 80053; 81000; 83690; 84702; 85025; 86900; 86901; 96372; 96374

== ENCOUNTER 2019-09-05 18:49 | Emergency (ER) | payer MEDICARE, MEDICAID ==
[~2019-09-05] VITALS: Ht 177.8 cm; Wt 158.7 kg
[~2019-09-05 18:49] MED LIST changes: +D-ME473S11 PO; -D-ME473S38 PO
[2019-09-05] MEDS ORDERED: KETOROLAC 30 MG/ML VIAL IVP ONE (19:15)
--- NOTE | 2019-09-05 19:15 | ED Abdominal Pain ---
General Stated Complaint: SHARP PAIN RIGHT SIDE Source of Information: Patient Exam Limitations: No Limitations History of Present Illness Date Seen by Provider: September 05, 2019 Time Seen by Provider: 19:14 Initial Comments To ER with right lower quadrant abdominal pain that started upon awakening this morning. No nausea no vomiting no constipation no diarrhea no dysuria. No fever no chills. Pain feels better to push on it. Timing/Duration: 12 Hours Severity/Quality: Moderate Location: RUQ Radiation: No Radiation Activities at Onset: None Associated Symptoms: No Heartburn, No Nausea/Vomiting Allergies and Home Medications Allergies Coded Allergies: No Known Drug Allergies (Unverified , 07/15/18) Home Medications Clotrimazole/Betamethasone Dip 15 Gm Cream..g., 1 GM TP BID Apply to the affected area on the abdomen twice a day for 14 days Prescribed by: DAMION CRAWFORD on 07/15/18 1647 Cyclobenzaprine HCl 10 Mg Tablet, 10 MG PO Q8H PRN for SPASMS Prescribed by: ROGELIO CEE on 09/22/16 1743 Cyclobenzaprine HCl 5 Mg Tablet, 5 MG PO TID PRN for PAIN-MILD TO MODERATE Prescribed by: DAMION CRAWFORD on 08/11/17 1626 Ibuprofen 800 Mg Tablet, 800 MG PO Q8H PRN for PAIN Prescribed by: ROGELIO CEE on 09/22/16 1743 Mupirocin Calcium 15 Gm Cream..g., 1 GM TP BID Mix with the other cream and apply to the affected area on the abdomen twice a day for 14 days Prescribed by: DAMION CRAWFORD on 07/15/18 1647 Tramadol HCl 50 Mg Tablet, 1-2 MG PO Q6H PRN for PAIN Prescribed by: TIANA LAKE on 06/23/16 2111 Patient Home Medication List Home Medication List Reviewed: Yes Review of Systems Review of Systems Constitutional: see HPI EENTM: No Symptoms Reported Respiratory: No Symptoms Reported Cardiovascular: See HPI Gastrointestinal: See HPI, Abdominal Pain; Denies Diarrhea, Denies Nausea Genitourinary: No Symptoms Reported Musculoskeletal: no symptoms reported Skin: no symptoms reported Psychiatric/Neurological: No Symptoms Reported Endocrine: No Symptoms Reported Past Upptdet-Wsqsqx-Yccpzf Hx Patient Social History 2nd Hand Smoke Exposure: No Recent Foreign Travel: No Contact w/Someone Who Travel: No Recent Hopitalizations: No Immunizations Up To Date Tetanus Booster (TDap): Less than 5yrs Seasonal Allergies Seasonal Allergies: No Past Medical History Surgeries: No Respiratory: No Cardiac: No Neurological: No Reproductive Disorders: No Sexually Transmitted Disease: No HIV/AIDS: No Genitourinary: No Gastrointestinal: No Musculoskeletal: No Endocrine: Yes (obesity) HEENT: No Cancer: No Psychosocial: No Integumentary: No Blood Disorders: No Adverse Reaction/Blood Tranf: No Family Medical History ANXIETY 19 MOTHER Asthma 19 MOTHER (COPD) BI-POLAR 19 MOTHER BI-POLAR 19 MOTHER FH: heart attack Hypertension 19 MOTHER No Pertinent Family Hx Physical Exam Vital Signs Capillary Refill : Height/Weight/BMI Height: 5'10.00" Weight: 305lbs. oz. 138.765039qu; 44.00 BMI Method:Stated General Appearance: WD/WN, no apparent distress, obese Neck: non-tender, full range of motion Respiratory: no respiratory distress, no accessory muscle use Gastrointestinal: normal bowel sounds, non tender (when I press on the right lower quadrant she states "that feels so much better"), soft Extremities: normal range of motion, non-tender Neurologic/Psychiatric: alert, normal mood/affect, oriented x 3 Skin: normal color, warm/dry Progress/Results/Core Measures Results/Orders Lab Results Laboratory Tests Test 09/05/19 19:12 09/05/19 19:19 Range/Units White Blood Count 10.0 4.3-11.0 10^3/uL Red Blood Count 4.69 4.35-5.85 10^6/uL Hemoglobin 12.0 11.5-16.0 G/DL Hematocrit 38 35-52 % Mean Corpuscular Volume 80 80-99 FL Mean Corpuscular Hemoglobin 26 25-34 PG Mean Corpuscular Hemoglobin Concent 32 32-36 G/DL Red Cell Distribution Width 16.5 H 10.0-14.5 % Platelet Count 260 130-400 10^3/uL Mean Platelet Volume 10.3 7.4-10.4 FL Neutrophils (%) (Auto) 64 42-75 % Lymphocytes (%) (Auto) 23 12-44 % Monocytes (%) (Auto) 10 0-12 % Eosinophils (%) (Auto) 2 0-10 % Basophils (%) (Auto) 0 0-10 % Neutrophils # (Auto) 6.4 1.8-7.8 X 10^3 Lymphocytes # (Auto) 2.3 1.0-4.0 X 10^3 Monocytes # (Auto) 1.0 0.0-1.0 X 10^3 Eosinophils # (Auto) 0.2 0.0-0.3 10^3/uL Basophils # (Auto) 0.0 0.0-0.1 10^3/uL Sodium Level 139 135-145 MMOL/L Potassium Level 3.9 3.6-5.0 MMOL/L Chloride Level 104 98-107 MMOL/L Carbon Dioxide Level 26 21-32 MMOL/L Anion Gap 9 5-14 MMOL/L Blood Urea Nitrogen 10 7-18 MG/DL Creatinine 0.82 0.60-1.30 MG/DL Estimat Glomerular Filtration Rate > 60 BUN/Creatinine Ratio 12 Glucose Level 89 70-105 MG/DL Calcium Level 8.8 8.5-10.1 MG/DL Corrected Calcium 8.8 8.5-10.1 MG/DL Total Bilirubin 0.2 0.1-1.0 MG/DL Aspartate Amino Transf (AST/SGOT) 15 5-34 U/L Alanine Aminotransferase (ALT/SGPT) 10 0-55 U/L Alkaline Phosphatase 81 40-136 U/L Total Protein 7.7 6.4-8.2 GM/DL Albumin 4.0 3.2-4.5 GM/DL Serum Test, Qualitative NEGATIVE NEGATIVE Urine Color YELLOW Urine Clarity SL CLOUDY Urine pH 5.5 5-9 Urine Specific [place] >=1.030 1.016-1.022 Urine Protein NEGATIVE NEGATIVE Urine Glucose (UA) NEGATIVE NEGATIVE Urine Ketones NEGATIVE NEGATIVE Urine Nitrite NEGATIVE NEGATIVE Urine Bilirubin NEGATIVE NEGATIVE Urine Urobilinogen 0.2 < = 1.0 MG/DL Urine Leukocyte Esterase NEGATIVE NEGATIVE Urine RBC (Auto) NEGATIVE NEGATIVE Urine RBC RARE /HPF Urine WBC 2-5 /HPF Urine Squamous Epithelial Cells 2-5 /HPF Urine Crystals NONE /LPF Urine Bacteria FEW H /HPF Urine Casts NONE /LPF Urine Mucus SMALL H /LPF Urine Culture Indicated YES My Orders Orders - DAMION CRAWFORD RELEASE COORDINATOR Cbc With Automated Diff (09/05/19 19:04) Comprehensive Metabolic Panel (09/05/19 19:04) Ua Culture If Indicated (09/05/19 19:04) Hcg,Qualitative Serum (09/05/19 19:04) Ed Iv/Invasive Line Start (09/05/19 19:04) Ketorolac Injection (Toradol Injection) (09/05/19 19:15) Ct Abd/Pelv W (Appendicitis) (09/05/19 19:04) Iohexol Injection (Omnipaque 350 Mg/Ml 1 (09/05/19 19:30) Received Contrast (Hold Metformin- Contr (09/05/19 19:30) Ns (Ivpb) (Sodium Chloride 0.9% Ivpb Bag (09/05/19 19:30) Urine Culture (09/05/19 19:19) Medications Given in ED Current Medications Medications Dose Ordered Sig/Nicko Route Start Time Stop Time Status Last Admin Dose Admin Iohexol 100 ml ONCE ONCE IV 09/05/19 19:30 09/05/19 19:31 DC 09/05/19 20:07 100 ML Ketorolac Tromethamine 15 mg ONCE ONCE IVP 09/05/19 19:15 09/05/19 19:16 DC 09/05/19 19:34 15 MG Sodium Chloride 100 ml ONCE ONCE IV 09/05/19 19:30 09/05/19 19:31 DC 09/05/19 20:08 100 ML Departure Impression Primary Impression: Abdominal pain Disposition: HOME, SELF-CARE Condition: Stable Departure-Patient Inst. Decision time for Depature: 20:37 Referrals: [facility] (PCP/Family) Primary Care Physician Patient Instructions: NO INSTRUCTIONS GIVEN Add. Discharge Instructions: 1. Return to ER for any concerns 2. Follow-up with your doctor next week 3. Tylenol and Motrin for pain control. DAMION CRAWFORD RELEASE COORDINATOR September 05, 2019 19:15
[2019-09-05 19:26] LABS: BILIRUBIN,URINE NEGATIVE (NEGATIVE); CLARITY,URINE SL CLOUDY; COLOR,URINE YELLOW; GLUCOSE, URINE (UA) NEGATIVE (NEGATIVE); KETONES,URINE NEGATIVE (NEGATIVE); LEUKOCYTE ESTERASE ,URINE NEGATIVE (NEGATIVE); NITRITE,URINE NEGATIVE (NEGATIVE); PH,URINE 5.5 (5-9); PROTEIN,URINE NEGATIVE (NEGATIVE)
[2019-09-05 19:29] LABS: BASOPHILS % (AUTO) 0 % (0-10); EOSINOPHILS # (AUTO) 0.2 10^3/uL (0.0-0.3); EOSINOPHILS % (AUTO) 2 % (0-10); HEMATOCRIT 38 % (35-52); LYMPHOCYTES # (AUTO) 2.3 X 10^3 (1.0-4.0); LYMPHOCYTES % (AUTO) 23 % (12-44); MEAN CORPUSCULAR HEMOGLOBIN 26 PG (25-34); MEAN CORPUSCULAR HGB CONC 32 G/DL (32-36); MEAN CORPUSCULAR VOLUME 80 FL (80-99); MEAN PLATELET VOLUME 10.3 FL (7.4-10.4); MONOCYTES % (AUTO) 10 % (0-12); NEUTROPHILS # (AUTO) 6.4 X 10^3 (1.8-7.8); NEUTROPHILS % (AUTO) 64 % (42-75); PLATELET COUNT 260 10^3/uL (130-400); RED CELL DISTRIBUTION WIDTH 16.5 % (10.0-14.5)
[2019-09-05] MEDS ORDERED: NS 100 ML (IVPB) BAG IV ONE (19:30)
[2019-09-05] MEDS ORDERED: IOHEXOL 350 MG/ML 100 ML (OMNIPAQUE 350) VIAL IV ONE (19:30)
[2019-09-05] MEDS ORDERED: HOLD METFORMIN - RECEIVED CONTRAST 20 ML VIAL IV SCH (19:30)
[2019-09-05 19:36] LABS: CHLORIDE 104 MMOL/L (98-107); POTASSIUM 3.9 MMOL/L (3.6-5.0); SODIUM 139 MMOL/L (135-145)
[2019-09-05 19:37] LABS: CALCIUM 8.8 MG/DL (8.5-10.1)
[2019-09-05 19:37] LABS: BACTERIA,URINE FEW /HPF; RBC,URINE RARE /HPF
[2019-09-05 19:38] LABS: GLUCOSE 89 MG/DL (70-105); TOTAL PROTEIN 7.7 GM/DL (6.4-8.2)
--- OUTSIDE RECORDS SUMMARY | 2019-09-05 19:38 | XMS REPORT ---
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 information available.No functional status information griselda ilable.No functional status information available.No functional status informati on available.No functional status information available.No functional status inf ormation available.No functional status information available.No functional stat us information available.No Functional Status information availableNo Functional Status information available Mental Status The data below is from unstructured sourcesNo Mental Status Information Available Encounters Encounter Normalized Encounter Encounter Diagnosis Care Provi sandra Organization Date Type 03-02-2018 (D-DIANNE) Comprehensive Encounter for dental TONIO MASSEY (no [facility] Oral Exam examination and phone) DENTAL (no carolee ne) cleaning without abnormal findings 03-02-2018 Comprehensve oral no information no name no or ganization name evaluation 09-05-2019 Emergency department no information TERRI ALEXANDER DO (no [facility] patient visit phone) [facility] (no phone) 03-24-2019 Emergency department no information (no phone) [facility] - patient visit Hospital (no phone) 03-24-2019 03-24-2019 Emergency department no information no name no organization name - patient visit 03-24-2019 10-31-2018 Emergency department no information no name no organization name - patient visit 10-31-2018 10-31-2018 Emergency department no information no name no organization name - patient visit 10-31-2018 07-18-2018 Emergency department no information JETT PORTILLO ( no no organization name - patient visit phone) 07-18-2018 07-18-2018 Emergency department no information no name no organization name - patient visit 07-18-2018 07-15-2018 Emergency department no information DAMION Emanuel APRN [facility] no organization name - patient visit Work Phone: 07-15-2018 DAMION Jenae ADDI CRAWFORD 07-15-2018 Emergency department no information no name no organization name - patient visit 07-15-2018 03-01-2018 Emergency department no information JETT PORTILLO ( no no organization name - patient visit phone) 03-01-2018 03-01-2018 Emergency department no information no name no organization name - patient visit 03-01-2018 08-11-2017 Emergency department no information no name no organization name - patient visit 08-11-2017 09-22-2016 Emergency department no information no name no organization name - patient visit 09-22-2016 09-22-2016 Emergency department no information no name no organization name - patient visit 09-22-2016 06-23-2016 Emergency department no information no name no organization name - patient visit 06-23-2016 06-23-2016 Emergency department no information no name no organization name - patient visit 06-23-2016 10-14-2013 Emergency department no information no name no organization name - patient visit 10-14-2013 10-02-2013 Emergency department no information no name no organization name - patient visit 10-02-2013 07-06-2013 Emergency department no information no name no organization name - patient visit 07-06-2013 05-27-2013 Emergency department no information no name no organization name - patient visit 05-27-2013 03-10-2013 Emergency department no information no name no organization name - patient visit 03-10-2013 05-27-2012 Emergency department no information no name no organization name - patient visit 05-27-2012 01-24-2012 Emergency department no information no name no organization name - patient visit 01-24-2012 10-31-2011 Emergency department no information no name no organization name - patient visit 10-31-2011 09-07-2011 Emergency department no information no name no organization name - patient visit 09-07-2011 06-26-2011 Emergency department no information no name no organization name - patient visit 06-26-2011 12-10-2010 Emergency department no information no name no organization name - patient visit 12-10-2010 03-01-2018 Patient encounter no information no name no or ganization name 08-11-2017 Patient encounter no information no name no or ganization name 07-30-2016 Patient encounter no information no name no or ganization name 12-25-2014 Patient encounter no information no name no or ganization name 09-24-2014 Patient encounter no information no name no or ganization name 06-28-2013 Patient encounter no information no name no or ganization name 03-08-2013 Patient encounter no information no name no or ganization name Patient encounter no information no name no organizat ion name 03-24-2019 Patient encounter no information no name no or ganization name procedure 03-18-2019 Patient encounter no information no name no or ganization name procedure 06-23-2016 Patient encounter no information no name no or ganization name procedure 05-07-2016 Patient encounter no information no name no or ganization name procedure 07-19-2011 Patient encounter no information no name no or ganization name procedure no information Encounter for dental no name no organi zation name examination and cleaning without abnormal findings no information RhD negative no name no organization name Medical Equipment The data below is from unstructured sourcesNo Medical Equipment Information available Payers Normalized Payer Value Unknown no information ([id number]) Medicare [id number] ([id number]) Medicare no information ([id number]) Evaluation note Note Type Note Facility Evaluation No Assessments Information Available A sc[facility] note [facility] ([id number]) Advance Directives Directive Response Recor ded Date/Time Advance Directives No 5:44pm Health Care Power of Environmental Emergencies Assistant No 11/26/15 5:44pm Organ Donor Yes 11/26/15 5:44pm Resuscitation Status Full Code 11/26/15 5:44pm Directive Response Recor ded Date/Time Advance Directives No 12:44pm Health Care Power of Environmental Emergencies Assistant No 11/26/15 5:44pm Organ Donor Yes 11/26/15 5:44pm Resuscitation Status Full Code 05/07/16 12:44pm Directive Response Recor ded Date/Time Advance Directives No 2:12pm Health Care Power of Environmental Emergencies Assistant No 05/06/15 2:12pm Organ Donor Yes 05/06/15 2:12pm Resuscitation Status Full Code 05/06/15 2:12pm Directive Response Recor ded Date/Time Advance Directives No 3:15pm Health Care Power of Environmental Emergencies Assistant No 01/29/14 3:15pm Organ Donor Yes 01/29/14 3:15pm Resuscitation Status Full Code 01/29/14 3:15pm Directive Response Recor ded Date/Time Advance Directives No 2:21am Health Care Power of Environmental Emergencies Assistant No 02/02/14 2:21am Organ Donor Yes 02/02/14 2:21am Resuscitation Status Full Code 02/02/14 2:21am Directive Response Recor ded Date Advance Directives N 2:55pm Health Care Power of Environmental Emergencies Assistant N 12/11/12 2:55pm Organ Donor Y 12/11/12 2 :55pm Directive Response Recor ded Date/Time Advance Directives No 5:16pm Health Care Power of Environmental Emergencies Assistant No 11/16/14 5:16pm Organ Donor Yes 11/16/14 5:16pm Resuscitation Status Full Code 11/16/14 5:16pm Directive Response Recor ded Date/Time Advance Directives No 6:48pm Health Care Power of Environmental Emergencies Assistant No 06/27/14 6:48pm Organ Donor Yes 06/27/14 6:48pm Resuscitation Status Full Code 06/27/14 6:48pm Directive Response Recor ded Date/Time Advance Directives No 5:39pm Health Care Power of Environmental Emergencies Assistant No 09/22/16 5:39pm Organ Donor Yes 09/22/16 5:39pm Directive Response Recor ded Date/Time Advance Directives No 8:03pm Health Care Power of Environmental Emergencies Assistant No 03/01/18 8:03pm Organ Donor Yes 03/01/18 8:03pm Resuscitation Status Full Code 03/01/18 8:03pm Directive Response Recor ded Date/Time Advance Directives No 4:22pm Health Care Power of Environmental Emergencies Assistant No 07/15/18 4:22pm Organ Donor Yes 07/15/18 4:22pm Resuscitation Status Full Code 07/15/18 4:22pm Directive Response Recor ded Date/Time Advance Directives No 8:04pm Health Care Power of Environmental Emergencies Assistant No 07/18/18 8:04pm Organ Donor Yes 07/18/18 8:04pm Resuscitation Status Full Code 07/18/18 8:04pm Advance Directive Response Recorded Date/Time Advance Directives No No [email or web address] 7:10pm Health Care Power of Environmental Emergencies Assistant No March 24, 2019 7:10pm Organ Donor Yes March 24, 2019 7:10pm Resuscitation Status Full Code March 24, 2019 7:10pm Discharge Instructions No hospital discharge instructions.No hospital discharge instructions.No hospital discharge instructions.No hospital discharge instructions.No hospital discharge instructions.No hospital discharge instructions.No hospital discharge instructions.No hospital discharge instruction information available.No hospital discharge instruction information available.No hospital discharge instruction information available.No hospital discharge instruction information available.No hospital discharge instruction information available.No hospital discharge instruction information available.No hospital discharge instruction information available.No hospital discharge instruction information available. Chief Complaint and Reason for Visit Chief Complaint Dental Problems/Pain Reason for Visit Dental caries [id number] Chief Complaint Skin/Wound Problems Reason for Visit Intertrigo Chief Complaint Respiratory Problems Reason for Visit [id number] Bronchitis Chief Complaint HORTICULTURALIST Reason for Visit [id number] Additional Source Comments This clinical document has been generated using [employer] software that has been certified by the Office of the National Coordinator for Health Information Technology (ONC 15.99.04.3023.Diam.31.00.0.435483) and the National Committee for [employer] (NCQA, as an eMeasure certified technology). FOR RECORDS PERTAINING TO PATIENTS WHO ARE OR HAVE BEEN ENROLLED IN A CHEMICAL D EPENDENCY/SUBSTANCE ABUSE PROGRAM, SOME INFORMATION MAY BE OMITTED. This clinica l summary was aggregated from multiple sources. Caution should be exercised in using it in the provision of clinical care. This summary normalizes information from multiple sources, and as a consequence, information in this document may ma terially change the coding, format and clinical context of patient data. In [place] tion, data may be omitted in some cases. CLINICAL DECISIONS SHOULD BE BASED ON T HE PRIMARY CLINICAL RECORDS. [employer] provides no warranty or guara ntee of the accuracy or completeness of information in this document.The followi ng information is based on time limited clinical information UNRECOGNIZED CONTENT PROVIDED BELOW FOR UNRECOGNIZED SECTION REASON FOR VISIT dianne/twest UNRECOGNIZED CONTENT PROVIDED BELOW FOR UNRECOGNIZED SECTION MEDICAL (GENERAL) HISTORY Type Description Date Surgical History No Surgical history information
--- OUTSIDE RECORDS SUMMARY | 2019-09-05 19:38 | XMS REPORT | Continuity of Care Document ---
Author Organization Unknown Address Unknown Phone Unavailable Allergies Active Description Code Type Severity Reaction Onset Reported/Identified Relationship to Patient Clinical Status Yes hydrocodone [id number] Drug Aller gy Unknown NAUSEA 06/26/2014 Yes No Known Drug Allergies [id number] Drug Allergy Unknown N/A 07/15/2018 Medications There [...] 05/27/2012 Ot 719.46 MINI NT PAIN-L/LEG 12/11/2012 ALEAH MENDOZA MD Ot 924.11 CONTUSION OF KNEE 12/11/2012 ALEAH [...] LOWER LEG INJURY NOS 03/10/2013 DAMION CRAWFORD CAD DESIGNER DRAFTER Ot E000.8 OTHER EXTERNAL CAUSE STATUS 03/10/2013 DAMION CRAWFORD CAD DESIGNER DRAFTER Ot E001.0 ACTIVITIES INVOLVING WALKING, MARCHING A 03/10/2013 DAMION CRAWFORD CAD DESIGNER DRAFTER Ot E849.[address]/HIGHWAY 03/10/2013 DAMION CRAWFORD CAD DESIGNER DRAFTER Ot E883.9 FALL INTO OTHER HOLE 05/27/2013 [...] FALLING OBJECT 10/14/2013 DAMION CRAWFORD APRN Ot 724 .2 LUMBAGO 01/29/2014 DAMION CRAWFORD CAD DESIGNER DRAFTER Ot 599 .0 URIN TRACT INFECTION NOS 01/29/2014 DAMION CRAWFORD CAD DESIGNER DRAFTER Ot 789.09 ABDOMINAL PAIN, OTHER SPECIFIED SITE 02/02/2014 TERRI ALEXANDER DO Ot 789.01 ABDOMINAL PAIN, RIGHT UPPER QUADRANT 06/28/2014 Ot 599.0 URIN TRACT INFECTION NOS 07/18/2014 Ot 789.05 10/16/2014 JEROME FRENCH, LAWANDA R Ot 715. 36 11/16/2014 Ot [...] 789.01 05/06/2015 Ot 789.06 05/06/2015 DAMION CRAWFORD CAD DESIGNER DRAFTER Ot K52 .9 NONINFECTIVE GASTROENTERITIS AND COLITIS 11/26/2015 DAMION CRAWFORD CAD DESIGNER DRAFTER Ot N20 .0 CALCULUS OF KIDNEY 11/26/2015 DAMION CRAWFORD CAD DESIGNER DRAFTER Ot N83.20 UNSPECIFIED OVARIAN CYSTS 11/26/2015 DAMION CRAWFORD CAD DESIGNER DRAFTER Ot R10.31 RIGHT LOWER QUADRANT PAIN 11/28/2015 Ot 719.47 MINI NT PAIN-ANKLE 11/28/2015 JEROME FRENCH, LAWANDA R Ot 780. 99 OTHER GENERAL SYMPTOMS NOS 11/28/2015 JEROME FRENCH LAWANDA R Ot 784. 49 OTHER VOICE AND RESONANCE DISORDERS 11/28/2015 JEROME FRENCH LAWANDA R Ot 790. 29 OTHER ABNORMAL [...] DISORDERS 05/07/2016 JEROME FRENCH LAWANDA R Ot 790. 29 OTHER ABNORMAL GLUCOSE 05/07/2016 Ot 789.05 ABD OMINAL PAIN, PERIUMBILIC 05/07/2016 JEROME FRENCH LAWANDA R Ot 715. 36 LOC OSTEOARTH NOS-L/LEG 05/07/2016 Ot 789.01 ABD OMINAL PAIN, RIGHT UPPER QUADRANT 05/07/2016 Ot 789.06 ABD OMINAL PAIN, EPIGASTRIC 05/07/2016 DAMION CRAWFORD CAD DESIGNER DRAFTER Ot R11 .2 NAUSEA WITH VOMITING, UNSPECIFIED 05/07/2016 DAMION CRAWFORD CAD DESIGNER DRAFTER Ot R19 .7 DIARRHEA, UNSPECIFIED 05/10/2016 DAMION CRAWFORD CAD DESIGNER DRAFTER Ot R11 .2 NAUSEA WITH VOMITING, UNSPECIFIED 05/10/2016 DAMION CRAWFORD CAD DESIGNER DRAFTER Ot R19 .7 DIARRHEA, UNSPECIFIED 06/23/2016 ALEKSANDRA FRENCH, TIANA Greene Ot I88. 0 NONSPECIFIC MESENTERIC LYMPHADENITIS 06/23/2016 ALEKSANDRA MD, TIANA A Ot R10. 31 RIGHT LOWER QUADRANT PAIN 06/25/2016 ALEKSANDRA FRENCH, TIANA A Ot I88. 0 NONSPECIFIC MESENTERIC LYMPHADENITIS 06/25/2016 ALEKSANDRA FRENCH, TIANA A Ot R10. 31 RIGHT LOWER QUADRANT PAIN 07/27/2016 ALEKSANDRA FRENCH, TIANA A Ot I88. 0 NONSPECIFIC MESENTERIC LYMPHADENITIS 07/27/2016 ALEKSANDRA FRENCH, TIANA A Ot R10. 31 RIGHT LOWER QUADRANT PAIN 08/03/2016 BRADEN CANO MDYD R Ot R10. 11 RIGHT UPPER QUADRANT PAIN 08/21/2016 JEROME FRENCH LAWANDA R Ot R10. 11 RIGHT UPPER QUADRANT PAIN 09/02/2016 BRADEN CANO MDYD R Ot R10. 11 RIGHT UPPER QUADRANT PAIN 09/03/2016 BRADEN CANO MDYD R Ot R10. 11 RIGHT UPPER QUADRANT PAIN 09/09/2016 JEROME FRENCH LAWANDA R Ot R10. 11 RIGHT UPPER QUADRANT PAIN 09/22/2016 ROGELIO BARON Ot M54.5 LOW BACK PAIN 09/22/2016 ROGELIO BARON Ot S39.012A STRAIN OF MUSCLE, FASCIA AND TENDON OF L 09/22/2016 ROGELIO BARON Ot X50.9XXA OTHER AND UNSPECIFIED OVREXRTN OR STRNOU 09/22/2016 ROGELIO BARON Ot Y99.8 OTHER EXTERNAL CAUSE STATUS 10/22/2016 LAWANDA CANO MD R Ot R10. 11 RIGHT UPPER QUADRANT [...] LEVEL TO ANOTHER, IN 08/11/2017 DAMION CRAWFORD CAD DESIGNER DRAFTER Ot Y92.[address] [facility] [address] IN [place] NON-INSTITUT (PRIVATE 08/11/2017 DAMION CRAWFORD APRN Ot Z79.52 SENIOR CARE (CURRENT) USE OF SYSTEMIC STER 08/11/2017 DAMION CRAWFORD APRN Ot Z82.49 FAMILY HX OF ISCHEM HEART DIS AND OTH DI 08/15/2017 DAMION CRAWFORD APRN Ot M79.632 PAIN IN LEFT FOREARM 08/15/2017 DAMION CRAWFORD APRN Ot S13.4XXA SPRAIN OF LIGAMENTS OF CERVICAL SPINE, I 08/15/2017 DAMION CRAWFORD APRN Ot S50.12XA CONTUSION OF LEFT FOREARM, INITIAL ENCOU 08/15/2017 DAMION RCAWFORD APRN Ot W17.89XA OTHER FALL FROM ONE LEVEL TO ANOTHER, IN 08/15/2017 DAMION CRAWFORD APRN Ot Y92.[address] [facility] 08/15/2017 DAMION CRAWFORD APRN Ot Z79.52 ARCHIVES SPECIALIST (CURRENT) USE OF SYSTEMIC STER 08/15/2017 DAMION [...] L30 .4 ERYTHEMA INTERTRIGO 07/15/2018 DAMION CRAWFORD APRN Ot R21 RASH AND OTHER NONSPECIFIC SKIN ERUPTION 07/15/2018 DAMION CRAWFORD APRN Ot Z79.52 ARCHIVES SPECIALIST (CURRENT) USE OF SYSTEMIC STER 07/15/2018 DAMION CRAWFORD APRN Ot Z82.49 FAMILY HX OF ISCHEM HEART DIS AND OTH DI 07/18/2018 BERNAVERY SANDOVALIS Ot J40 BRONCHITIS, NOT SPECIFIED ACUTE OR CH 07/18/2018 BERNAVERY SANDOVALIS Ot J98.8 OTHER SPECIFIED RESPIRATORY DISORDERS 07/18/2018 BERNAVERY SANDOVALIS Ot R50.9 FEVER, UNSPECIFIED 07/18/2018 BERNAVERY SANDOVALIS Ot Z82.49 FAMILY HX OF ISCHEM HEART DIS AND OTH DI 07/21/2018 BERNAVERY SANDOVALIS Ot J40 BRONCHITIS, NOT SPECIFIED ACUTE OR CH 07/21/2018 BERNAVERY SANDOVALIS Ot J98.8 OTHER SPECIFIED RESPIRATORY DISORDERS 07/21/2018 BERNOTAVERYIS Ot R50.9 FEVER, UNSPECIFIED 07/21/2018 BERNOTAVERYIS Ot Z82.49 FAMILY HX OF ISCHEM HEART DIS AND OTH DI 10/31/2018 ALEAH MENDOZA MD Ot E66.9 OBESITY, UNSPECIFIED 10/31/2018 ALEAH MENDOZA MD T Ot R07.81 PLEURODYNIA 10/31/2018 ALEAH MENDOZA MD T Ot R07.89 OTHER CHEST PAIN 10/31/2018 ALEAH MENDOZA MD Ot Z68.41 BODY MASS INDEX (BMI) 40.0-44.9, ADULT 10/31/2018 ALEAH MENDOZA MD Ot Z82.49 FAMILY HX OF ISCHEM HEART DIS AND OTH DI 03/24/2019 ALEAH MENDOZA MD Ot O20.9 HEMORRHAGE IN EARLY , UNSPECIFI 03/24/2019 ALEAH MENDOZA MD Ot O26.891 OTH RELATED CONDITIONS, FIRST 03/24/2019 ALEAH MENDOZA MD Ot O99.211 OBESITY COMPLICATING , FIRST TR 03/24/2019 AELAH MENDOZA MD Ot R10.13 EPIGASTRIC PAIN 03/24/2019 ALEAH MENDOZA MD Ot Z3A.01 LESS THAN 8 WEEKS GESTATION OF 03/24/2019 ALEAH MENDOZA MD Ot Z67.91 UNSPECIFIED BLOOD TYPE, RH NEGATIVE 03/24/2019 ALEAH MENDOZA MD Ot Z68.41 BODY MASS INDEX (BMI) 40.0-44.9, ADULT 03/30/2019 ALEAH MENDOZA MD Ot O20.9 HEMORRHAGE IN EARLY , UNSPECIFI 03/30/2019 ALEAH MENDOZA MD Ot O26.891 OTH RELATED CONDITIONS, FIRST 03/30/2019 ALEAH MENDOZA MD Ot O99.211 OBESITY COMPLICATING , FIRST TR 03/30/2019 ALEAH MENDOZA MD Ot R10.13 EPIGASTRIC PAIN 03/30/2019 ALEAH MENDOZA MD Ot Z3A.01 LESS THAN 8 WEEKS GESTATION OF 03/30/2019 ALEAH MENDOZA MD Ot Z67.91 UNSPECIFIED BLOOD TYPE, RH NEGATIVE 03/30/2019 ALEAH MENDOZA MD Ot Z68.41 BODY MASS [...] NRG Blood erythrocyte morphology finding identification NORMAL [facility] Comprehensive metabolic panel - 05/07/16 12:50 Serum [...] - 06/23/16 19:45 Lipase 11 U/L 8-78 Influenza virus A and B antigen detectio n - 07/18/18 20:06 FLU RESULT NEGATIVE FOR INFLUENZA A AND B ANTIGENS BY IA NRG Complete blood count (CBC) with automate [...] 19:08 RH IMMUNE GLOBULIN RHOPHYLAC TRANSFUSED 03/24/192036 [facility] ABO+Rh group - 03/24/19 19:08 ABO+Rh group ON [facility] Rh immune globulin screen - 03/24/19 19: 08 Rh immune globulin screen 06/11/21 300ug [facility] Lot number - 03/24/19 19:08 Lot number [id number] [facility] Comprehensive metabolic panel - 03/24/19 19:08 Serum [...] Status Pt. Type Provider Facility Loc./Unit Complaint [id number] 05/07/2019 15:38:49 05/07/2019 23:59:5 9 CLS Outpatient [id number] 03/24/2019 18:33:00 019 20:55:00 DIS Emergency ALEAH MENDOZA MD Via [facility] ER 4-5 PREG. - ABD PAIN / BLEEDING [id number] 10/31/2018 18:05:00 019 20:30:00 DIS Emergency ALEAH MENDOZA MD Via [facility] ER CHEST PAIN,SOA, R ARM PAIN [id number] 07/18/2018 20:06:00 019 21:20:00 DIS Emergency JETT PORTILLO Via [facility] ER CHEST PAINS, COUGH FEVE R RUNNY NOSE [id number] 07/15/2018 16:18:00 019 16:51:00 DIS Emergency DAMION CRAWFORD APRN Via [facility] ER SORE/WOUND IN BELLY BUT TON [id number] 03/01/2018 19:04:00 018 21:00:00 DIS Emergency JETT PORTILLO Via [facility] ER EAR/JAW PAIN [id number] 08/11/2017 15:56:00 018 17:45:00 DIS Emergency DAMION CRAWFORD CAD DESIGNER DRAFTER Via [facility] ER FALL THRU POOL DECK - L ARM PAIN [id number] 09/22/2016 17:29:00 017 17:54:00 DIS Emergency ROGELIO BARON Via [facility] ER BACK PAIN [id number] 07/30/2016 06:44:00 017 23:59:59 CLS Outpatient LAWANDA CANO MD Via [facility] RAD RUQ ABD PAIN [id number] 06/23/2016 19:32:00 017 21:16:00 DIS Emergency TIANA LAKE MD Via [facility] ER ABD PAIN [id number] 05/07/2016 12:26:00 017 15:33:00 DIS Emergency DAMION CRAWFORD APRN Via [facility] ER VOMITING, DIARRHEA [id number] 11/26/2015 17:23:00 016 21:17:00 DIS Emergency DAMION CRAWFORD CAD DESIGNER DRAFTER Via [facility] ER ABD PAIN [id number] 05/06/2015 13:24:00 016 15:47:00 DIS Emergency DAMION CRAWFORD CAD DESIGNER DRAFTER Via [facility] ER VOMITING/ABD PAIN [id number] 11/16/2014 17:09:00 015 19:22:00 DIS Emergency ROGELIO BARON Via [facility] ER BACK PAIN FROM FALL/TR IPPED OVER VACUUM CORD FELL [id number] 10/17/2014 17:32:00 015 23:59:59 CLS Outpatient CARL ZUÑIGA CAD DESIGNER DRAFTER Via [facility] QUICK [id number] 09/24/2014 15:10:00 23:59:59 CLS Outpatient LAWANDA CANO MD Via [facility] RAD DIFFICULTY ON EXTENSION , FALL W/PAINFUL L KNEE [id number] 02/02/2014 01:48:00 014 05:09:00 DIS Emergency TERRI ALEXANDER DO [facility] ER ABD PAIN [id number] 01/29/2014 15:05:00 16:00:00 DIS Emergency DAMION CRAWFORD APRN Via [facility] ER RT SIDED PAIN [id number] 01/07/2014 17:25:00 23:59:59 CLS Outpatient [id number] 10/14/2013 19:26:00 20:06:00 DIS Emergency DAMION CRAWFORD APRN Via [facility] ER LOWER BACK PAIN [id number] 10/02/2013 21:32:00 22:42:00 DIS Emergency ROGELIO BARON Via [facility] ER R FOOT INJ [id number] 07/06/2013 18:52:00 20:20:00 DIS Emergency ROGELIO BARON Via [facility] ER L HAND PAIN [id number] 06/28/2013 14:24:00 23:59:59 CLS Outpatient LAWANDA CANO MD Via [facility] LAB HYPERGLYCEIMA [id number] 05/27/2013 01:31:00 03:39:00 DIS Emergency TERRI ALEXANDER DO [facility] ER RIGHT ABDOMINAL PAIN [id number] 05/01/2013 16:45:00 23:59:59 CLS Outpatient [id number] 03/10/2013 19:46:00 20:40:00 DIS Emergency DAMION CRAWFORD APRN Via [facility] ER TWISTED RIGHT ANKLE [id number] 03/08/2013 16:18:00 23:59:59 CLS Outpatient JEROME FRENCH, LAWANDA R [facility] LAB COLD,LOWER VOICE [id number] 12/23/2012 19:08:00 23:59:59 CLS Outpatient [id number] 12/11/2012 14:45:00 17:07:00 DIS Emergency KELLY FRENCH, ALEAH Suarez Via [facility] ER PT FELL AND ONOFRE T KNEE [id number] 09/05/2019 18:51:[address] Emergency DAMION CRAWFORD APRN [facility] ER SHARP PAIN RIGHT SIDE [id number] 12/25/2014 07:00:00 Document Registration [id number] 06/27/2014 11:00:00 Document Registration [id number] 06/26/2014 14:27:00 Document Registration [id number] 05/27/2012 04:30:00 Document Registration [id number] 01/24/2012 15:50:00 Document Registration [id number] 10/31/2011 15:28:00 Document Registration [id number] 09/07/2011 20:18:00 Document Registration [id number] 07/19/2011 15:34:00 Document Registration [id number] 06/26/2011 16:32:00 Document Registration [id number] 12/10/2010 16:50:00 Document Registration [id number] 05/14/2010 17:16:00 Document Registration [id number] 11/12/2009 23:38:00 Document Registration [id number] 10/23/2009 10:09:00 Document Registration [id number] 10/08/2009 15:04:00 Document Registration [id number] 03/18/2019 13:45:00 03/18/2019 23:59:5 9 CLS Outpatient ALISHA TRUJILLO [facility]
[2019-09-05 19:40] LABS: BILIRUBIN,TOTAL 0.2 MG/DL (0.1-1.0); CARBON DIOXIDE 26 MMOL/L (21-32)
[2019-09-05 19:42] LABS: ALKALINE PHOSPHATASE 81 U/L (40-136); CREATININE SERUM 0.82 MG/DL (0.60-1.30); GFR ESTIMATED > 60
[2019-09-05 19:43] LABS: BUN/CREATININE RATIO 12
[2019-09-05 19:45] LABS: ALANINE AMINOTRANSFERASE 10 U/L (0-55)
--- NOTE | 2019-09-05 20:29 | Diagnostic Imaging Report ---
PROCEDURE: CT abdomen and pelvis with contrast, rule out appendicitis. TECHNIQUE: Multiple contiguous axial images were obtained through the abdomen and pelvis after the administration of intravenous contrast. All CT scans use one or more of the following dose optimizing techniques: automated exposure control, MA and/or KvP adjustment based on patient size and exam type or iterative reconstruction. INDICATION: Right lower quadrant abdominal pain. COMPARISON: CT abdomen and pelvis without contrast 06/23/2016. FINDINGS: Lung bases are clear. Liver, gallbladder, pancreas, spleen, adrenals, kidneys, collecting systems and bladder are negative. Reproductive structures are grossly unremarkable. Normal appendix. No free intraperitoneal air or fluid. No lymphadenopathy. No evidence of bowel obstruction. No acute osseous finding. Chronic L3 and L4 pars defects. There appears to be transitional anatomy with tiny riblets at T12 and partial sacralization of L5. IMPRESSION: 1. No acute CT findings in the abdomen or pelvis. 2. 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 Dictated by: Dictated on workstation # [id number]
[2019-09-05 20:40] VITALS: BP 137/78
== END 2019-09-05 20:49 | disposition home or self-care (01) ==
LOC: EDUNIT# 18:49 → ER 18:51
DX: R10.31 Right lower quadrant pain (principal); E66.9 Obesity, unspecified; Z82.49 Family history of ischemic heart disease and other diseases of the circulatory system; Z68.43 Body mass index [BMI] 50.0-59.9, adult
CPT/HCPCS: 36415; 74177; 80053; 81000; 84703; 85025; 87088

== ENCOUNTER → 2019-12-20 | Outpatient (CLI) | payer MEDICARE, MEDICAID ==
--- NOTE | 2019-12-20 12:41 | Diagnostic Imaging Report ---
PROCEDURE: US PELVIC (NON OB) TECHNIQUE: Multiple real-time grayscale images were obtained over the pelvis in various projections transabdominally. INDICATION: Dysfunctional uterine bleeding. FINDINGS: The uterus is retroflexed measuring 8.2 x 3.7 x 4.9 cm. Endometrium is 5 mm in thickness. No myometrial mass is detected. Ovaries could not be visualized. The overall quality of study is somewhat limited due to patient body habitus. Patient refused transvaginal study. No definite adnexal mass or free fluid is seen. IMPRESSION: Limited study. No gross abnormality is detected. Dictated by: Dictated on workstation # [id number]
== END ==
LOC: RAD 10:11
PROVIDERS: ATTEND Nurse Practitioner Women's Health
DX: N93.8 Other specified abnormal uterine and vaginal bleeding (principal)
CPT/HCPCS: 76856

== ENCOUNTER 2020-11-24 01:52 | Emergency (ER) | payer MEDICARE, MEDICAID ==
[~2020-11-24] VITALS: Ht 178 cm; Wt 167.0 kg
[2020-11-24 03:16] LABS: BILIRUBIN,URINE NEGATIVE (NEGATIVE); CLARITY,URINE CLEAR; COLOR,URINE YELLOW; GLUCOSE, URINE (UA) NEGATIVE (NEGATIVE); KETONES,URINE NEGATIVE (NEGATIVE); LEUKOCYTE ESTERASE ,URINE NEGATIVE (NEGATIVE); NITRITE,URINE NEGATIVE (NEGATIVE); PH,URINE 5.5 (5-9); PROTEIN,URINE NEGATIVE (NEGATIVE)
[2020-11-24 03:33] LABS: BACTERIA,URINE FEW /HPF
[2020-11-24] MEDS ORDERED: ONDA4TAB11 PO (03:42)
[2020-11-24] MEDS ORDERED: PHEN-640 PO (03:42)
[2020-11-24] MEDS ORDERED: HYOS0.1283 SL (03:42)
[2020-11-24] MEDS ORDERED: NITR-65 PO (03:42)
--- NOTE | 2020-11-24 03:42 | ED Abdominal Pain ---
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 Source of Information: Patient, Other (MOM DOES MOST OF TALKING FOR PATIENT) History of Present Illness Date Seen by Provider: Nov 24, 2020 Time Seen by Provider: 02:35 Initial Comments PT ARRIVES VIA POV FROM HOME WITH MOM PT STATES "I HAD SEVERE PAIN IN THE MIDDLE OF MY STOMACH" STATES IT STARTED IMMEDIATELY PRIOR TO ARRIVAL / 10 MINUTES PRIOR TO ARRIVAL PT STATES SHE HAS SOME NAUSEA WITH IT STATES PAIN AND NAUSEA ARE GONE NOW HAD NO VOMITING HAD A NORMAL BM EARLIER TODAY NO FEVER/SWEATS/CHILLS NO URINARY SYMPTOMS NO RADIATION OF PAIN NOTHING WORSENED PAIN PAIN GOT ALOT BETTER WHEN SHE LAID DOWN LMP--ENDED 1 WEEK AGO. NORMAL. NO CONTROL. PT HAS RECEIVED BOTH COVID-19 VACCINES--LAST ONE WAS IN AUGUST 2020 NO KNOWN SICK CONTACTS OR SUSPICIOUS FOODS LAST ATE AROUND 1830 TONIGHT PCP: REI Allergies and Home Medications Allergies Coded Allergies: No Known Drug Allergies (Unverified , 07/15/18) Home Medications Hyoscyamine Sulfate 0.125 Mg Tab.subl, 0.25 MG SL Q4H Prescribed by: TERRI ALEXANDER on 11/24/20341 Nitrofurantoin Monohyd/M-Cryst 100 Mg Capsule, 1 TAB PO BID Prescribed by: TERRI ALEXANDER on 11/24/20341 Ondansetron 4 Mg Tab.rapdis, 4 MG PO Q4H Prescribed by: TERRI ALEXANDER on 11/24/20341 Phenazopyridine HCl 200 Mg Tablet, 1 TAB PO TID Prescribed by: TERRI ALEXANDER on 11/24/20341 Patient Home Medication List Home Medication List Reviewed: Yes Review of Systems Review of Systems Constitutional: no symptoms reported Respiratory: No Symptoms Reported Cardiovascular: No Symptoms Reported Gastrointestinal: See HPI, Abdominal Pain; Denies Constipated; Nausea; Denies Vomiting Genitourinary: No Symptoms Reported Musculoskeletal: no symptoms reported Skin: no symptoms reported Psychiatric/Neurological: No Symptoms Reported Endocrine: No Symptoms Reported Hematologic/Lymphatic: No Symptoms Reported Past Pboiyyj-Rfihtn-Sicekp Hx Patient Social History Tobacco Use?: No Substance use?: No Alcohol Use?: No Pt feels they are or have been: No Immunizations Up To Date Tetanus Booster (TDap): Less than 5yrs First/Initial COVID19 Vaccinat: 07/13 Second COVID19 Vaccination Holden: 08/13 Seasonal Allergies Seasonal Allergies: No Past Medical History Surgeries: No Respiratory: No Cardiac: No Neurological: No Reproductive Disorders: No Sexually Transmitted Disease: No HIV/AIDS: No Genitourinary: No Gastrointestinal: No Musculoskeletal: No Endocrine: Yes (MORBID OBESITY) HEENT: No Cancer: No Psychosocial: No Integumentary: No Blood Disorders: No Adverse Reaction/Blood Tranf: No Family Medical History ANXIETY 19 MOTHER Asthma 19 MOTHER (COPD) BI-POLAR 19 MOTHER BI-POLAR 19 MOTHER FH: heart attack Hypertension 19 MOTHER No Pertinent Family Hx Physical Exam Vital Signs Vital Signs - First Documented 11/24/20 02:23 Temp 36.7 Pulse 110 Resp 18 B/P (MAP) 131/86 (101) Pulse Ox 100 O2 Delivery Room Air Capillary Refill : Less Than 3 Seconds Height/Weight/BMI Height: 5'10.00" Weight: 305lbs. oz. 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 nml as tested, no motor/sensory deficits, alert, normal mood/affect, oriented x 3 Skin: normal color (PT IS BLACK/DARK SKINNED), warm/dry; No rash Progress/Results/Core Measures Results/Orders Lab Results Laboratory Tests Test 11/24/20 02:30 Range/Units Urine Color YELLOW Urine Clarity CLEAR Urine pH 5.5 5-9 Urine Specific Nabb >=1.030 1.016-1.022 Urine Protein NEGATIVE NEGATIVE Urine Glucose (UA) NEGATIVE NEGATIVE Urine Ketones NEGATIVE NEGATIVE Urine Nitrite NEGATIVE NEGATIVE Urine Bilirubin NEGATIVE NEGATIVE Urine Urobilinogen 0.2 < = 1.0 MG/DL Urine Leukocyte Esterase NEGATIVE NEGATIVE Urine RBC (Auto) NEGATIVE NEGATIVE Urine RBC NONE /HPF Urine WBC NONE /HPF Urine Squamous Epithelial Cells 5-10 /HPF Urine Crystals NONE /LPF Urine Bacteria FEW H /HPF Urine Casts NONE /LPF Urine Mucus SMALL H /LPF Urine Culture Indicated NO My Orders Orders - TERRI ALEXANDER DO Ua Culture If Indicated (11/24/20 02:36) Urine Bedside (11/24/20 02:36) Nitrofurantoin Capsule,Macro (Macrobid C (11/24/20 03:45) Hyoscyamine Sl Tablet (Levsin Sl Tablet) (11/24/20 03:45) Medications Given in ED Current Medications Medications Dose Ordered Sig/Nicko Route Start Time Stop Time Status Last Admin Dose Admin Hyoscyamine Sulfate 0.25 mg ONCE ONCE PO 11/24/20 03:45 11/24/20 03:47 DC 11/24/20 03:49 0.25 MG Nitrofurantoin Macrocrystals 100 mg ONCE ONCE PO 11/24/20 03:45 11/24/20 03:47 DC 11/24/20 03:49 100 MG Vital Signs/I&O 11/24/20 02:23 Temp 36.7 Pulse 110 Resp 18 B/P (MAP) 131/86 (101) Pulse Ox 100 O2 Delivery Room Air Blood Pressure Mean: 101 Progress Progress Note : Progress Note UNEVENTFUL ER STAY PT DOES NOT COMPLAIN OF PAIN OR NAUSEA DURING ENTIRE ER STAY Departure Impression Primary Impression: Urinary tract infection Disposition: 01 HOME, SELF-CARE Condition: Stable Departure-Patient Inst. Decision time for Depature: 03:40 Referrals: [facility] (PCP/Family) Primary Care Physician Patient Instructions: Urinary Tract Infection, Adult (DC) Add. Discharge Instructions: LOTS OF CLEAR LIQUIDS--WATER, BROTH, JELLO, GATORADE BRATS DIET --BANANAS, RICE, APPLESAUCE, TOAST, SALTINES TYLENOL AND MOTRIN NEEDED FOR PAIN FOLLOW UP WITH YOUR DR IN 2-3 DAYS FOR FURTHER CARE All discharge instructions reviewed with patient and/or family. Voiced understanding. Scripts Ondansetron (Ondansetron Odt) 4 Mg Tab.rapdis 4 MG PO Q4H for Nausea/Vomiting, #10 TAB Prov: TERRI ALEXANDER DO 11/24/20 Phenazopyridine HCl (Pyridium) 200 Mg Tablet 1 TAB PO TID, #15 TAB Prov: TERRI ALEXANDER DO 11/24/20 Hyoscyamine Sulfate (Levsin-Sl) 0.125 Mg Tab.subl 0.25 MG SL Q4H, #10 TAB Prov: TERRI ALEXANDER DO 11/24/20 Nitrofurantoin Monohyd/M-Cryst (Macrobid 100 mg Capsule) 100 Mg Capsule 1 TAB PO BID, #20 CAP Prov: TERRI ALEXANDER DO 11/24/20 TERRI ALEXANDER DO Nov 24, 2020 03:42
[2020-11-24] MEDS ORDERED: NITROFURANTOIN 100 MG (MACROBID) CAPSULE PO ONE (03:45)
[2020-11-24] MEDS ORDERED: HYOSCYAMINE 0.125 MG (LEVSIN) TAB PO ONE (03:45)
[2020-11-24 03:50] VITALS: BP 127/81
== END 2020-11-24 03:49 | disposition home or self-care (01) ==
LOC: EDUNIT# 01:52 → ER 01:55
DX: N39.0 Urinary tract infection, site not specified (principal); E66.01 Morbid (severe) obesity due to excess calories; Z68.43 Body mass index [BMI] 50.0-59.9, adult
CPT/HCPCS: 81000; 84703; 99283

== ENCOUNTER 2021-02-15 12:38 | Emergency (ER) | payer MEDICARE, MEDICAID ==
[~2021-02-15] VITALS: Ht 177 cm; Wt 142.0 kg
[~2021-02-15 12:38] MED LIST changes: +HYOS0.1283 SL; +NITR-65 PO; +ONDA4TAB11 PO; +PHEN-640 PO
--- NOTE | 2021-02-15 12:59 | ED Abdominal Pain ---
General Stated Complaint: R SIDE ABD AND BACK PAIN Source of Information: Patient Exam Limitations: No Limitations History of Present Illness Date Seen by Provider: Feb 15, 2021 Time Seen by Provider: 12:58 Initial Comments This is a well-appearing 30-year-old female who presented to the ER for complaints of right lower quadrant abdominal pain for the past 3 days. Allergies and Home Medications Allergies Coded Allergies: No Known Drug Allergies (Unverified , 07/15/18) Patient Home Medication List Hyoscyamine Sulfate (Levsin-Sl) 0.125 Mg Tab.subl, 0.25 MG SL Q4H Prescribed by: TERRI ALEXANDER on 11/24/20341 Nitrofurantoin Monohyd/M-Cryst (Macrobid 100 mg Capsule) 100 Mg Capsule, 1 TAB PO BID Prescribed by: TERRI ALEXANDER on 11/24/20341 Ondansetron (Ondansetron Odt) 4 Mg Tab.rapdis, 4 MG PO Q4H Prescribed by: TERRI ALEXANDER on 11/24/20341 Phenazopyridine HCl (Pyridium) 200 Mg Tablet, 1 TAB PO TID Prescribed by: TERRI ALEXANDER on 11/24/20341 [Bcp] , (Reported) Entered as Reported by: COLTON RODRIGUEZ on 06/23/161999 Past Omzwhcm-Belgmm-Ouezbi Hx Immunizations Up To Date Tetanus Booster (TDap): Less than 5yrs Seasonal Allergies Seasonal Allergies: No Past Medical History Surgeries: No Respiratory: No Cardiac: No Neurological: No Reproductive Disorders: No Sexually Transmitted Disease: No HIV/AIDS: No Genitourinary: No Gastrointestinal: No Musculoskeletal: No Endocrine: Yes (MORBID OBESITY) HEENT: No Cancer: No Psychosocial: No Integumentary: No Blood Disorders: No Adverse Reaction/Blood Tranf: No Family Medical History ANXIETY 19 MOTHER Asthma 19 MOTHER (COPD) BI-POLAR 19 MOTHER BI-POLAR 19 MOTHER FH: heart attack Hypertension 19 MOTHER No Pertinent Family Hx Physical Exam Vital Signs Vital Signs - First Documented 02/15/21 12:53 Temp 36.8 Pulse 92 Resp 18 B/P (MAP) 116/79 (91) Pulse Ox 97 Capillary Refill : Height/Weight/BMI Height: 5'10.00" Weight: 305lbs. oz. 138.882041an; 52.00 BMI Method:Stated Progress/Results/Core Measures Results/Orders Lab Results Laboratory Tests Test 02/15/21 13:08 Range/Units Urine Color YELLOW Urine Clarity SL CLOUDY Urine pH 8.0 5-9 Urine Specific [place] 1.015 L 1.016-1.022 Urine Protein TRACE H NEGATIVE Urine Glucose (UA) NEGATIVE NEGATIVE Urine Ketones NEGATIVE NEGATIVE Urine Nitrite NEGATIVE NEGATIVE Urine Bilirubin NEGATIVE NEGATIVE Urine Urobilinogen 1.0 < = 1.0 MG/DL Urine Leukocyte Esterase NEGATIVE NEGATIVE Urine RBC (Auto) NEGATIVE NEGATIVE Urine RBC NONE /HPF Urine WBC 0-2 /HPF Urine Squamous Epithelial Cells 5-10 /HPF Urine Crystals PRESENT H /LPF Urine Amorphous Sediment FEW ELBA PHOSPHATE H /LPF Urine Bacteria MODERATE H /HPF Urine Casts NONE /LPF Urine Mucus SMALL H /LPF Urine Culture Indicated YES Urine Test NEGATIVE NEGATIVE My Orders Orders - SHERI PRITCHETT [employer] EXAMINER Urinalysis (02/15/21 12:46) Hcg,Qualitative Urine (02/15/21 12:48) Iohexol Injection (Omnipaque 350 Mg/Ml 1 (02/15/21 13:00) Received Contrast (Hold Metformin- Contr (02/15/21 13:00) Ns (Ivpb) (Sodium Chloride 0.9% Ivpb Bag (02/15/21 13:00) Urine Culture (02/15/21 13:08) Ct Abdomen/Pelvis W (02/15/21 13:54) Ketorolac Injection (Toradol Injection) (02/15/21 14:45) Fentanyl Inj (Sublimaze Injection) (02/15/21 15:30) Medications Given in ED Current Medications Medications Dose Ordered Sig/Nicko Route Start Time Stop Time Status Last Admin Dose Admin Iohexol 100 ml ONCE ONCE IV 02/15/21 13:00 02/15/21 13:12 DC 02/15/21 14:15 100 ML Ketorolac Tromethamine 30 mg ONCE ONCE IM 02/15/21 14:45 02/15/21 14:46 DC 02/15/21 14:57 30 MG Sodium Chloride 100 ml ONCE ONCE IV 02/15/21 13:00 02/15/21 13:12 DC 02/15/21 14:15 100 ML Vital Signs/I&O 02/15/21 12:53 Temp 36.8 Pulse 92 Resp 18 B/P (MAP) 116/79 (91) Pulse Ox 97 Departure Impression Primary Impression: Lymphangitis of groin Disposition: 01 HOME, SELF-CARE Condition: Improved Departure-Patient Inst. Decision time for Depature: 15:20 Referrals: [facility] (PCP/Family) Primary Care Physician Patient Instructions: Abdominal Muscle Strain (DC) Add. Discharge Instructions: Plan: 1. Take antibiotics as directed and complete full course. May take Tylenol or Ibuprofen as needed for discomfort per package. 2. Apply heat 20 minutes at a time to area 4-6x per day for pain. 3. Follow up with your doctor if your symptoms persist. 4. Return for any new, concerning, or worsening symptoms. Scripts Cephalexin (Cephalexin) 500 Mg Tablet 500 MG PO QID for 7 Days, #28 TAB 0 Refills Prov: SHERI PRITCHETT APRN 02/15/21 SHERI PRITCHETT APRN Feb 15, 2021 12:59
[2021-02-15] MEDS ORDERED: HOLD METFORMIN - RECEIVED CONTRAST 20 ML VIAL IV SCH (13:00)
[2021-02-15] MEDS ORDERED: IOHEXOL 350 MG/ML 100 ML (OMNIPAQUE 350) VIAL IV ONE (13:00)
[2021-02-15] MEDS ORDERED: NS 100 ML (IVPB) BAG IV ONE (13:00)
[2021-02-15 13:15] LABS: BILIRUBIN,URINE NEGATIVE (NEGATIVE); CLARITY,URINE SL CLOUDY; COLOR,URINE YELLOW; GLUCOSE, URINE (UA) NEGATIVE (NEGATIVE); KETONES,URINE NEGATIVE (NEGATIVE); LEUKOCYTE ESTERASE ,URINE NEGATIVE (NEGATIVE); NITRITE,URINE NEGATIVE (NEGATIVE); PROTEIN,URINE TRACE (NEGATIVE)
[2021-02-15 13:37] LABS: AMORPHOUS SEDIMENT,UR FEW AMOR PHOSPHATE /LPF; BACTERIA,URINE MODERATE /HPF; WBC,URINE 0-2 /HPF
[2021-02-15] MEDS ORDERED: KETOROLAC 60 MG/2 ML VIAL IM ONE (14:45)
--- NOTE | 2021-02-15 14:48 | Diagnostic Imaging Report ---
INDICATION: Right lower quadrant and right-sided back pain. EXAMINATION: CT abdomen and pelvis with contrast , 02/15/2021. All CT scans use one or more of the following dose optimizing techniques: automated exposure control, MA and/or KvP adjustment based on patient size and exam type or iterative reconstruction. COMPARISON: 09/05/2019. FINDINGS: The lung bases are clear. There is diffuse hepatic steatosis with a vague hyperdensity in the right lobe of the liver likely a transient area of hepatic attenuation. No measurable lesion is appreciated. The gallbladder is unremarkable. The spleen is normal. Adrenal glands are unremarkable. The pancreas and gallbladder are within normal limits. Kidneys unremarkable. The appendix is unremarkable. There are cystic lesions in bilateral adnexa, left greater than right, likely ovarian. No significant free fluid is seen. There is no free air within the abdomen or pelvis. Mild diverticular disease is noted without evidence for diverticulitis. There are scattered slightly prominent lymph nodes within the inguinal regions, bilaterally, of uncertain etiology perhaps normal for patient. Correlate clinically. Otherwise, no lymphadenopathy is appreciated. There is no acute osseous abnormality. IMPRESSION: 1. Nonspecific slightly prominent lymph nodes within the inguinal regions, bilaterally, correlate clinically. 2. Cystic changes in bilateral adnexa, left greater than right, which are likely ovarian. Remaining structures unremarkable. Incidental findings as discussed above. Dictated by: Dictated on workstation # [id number]
[2021-02-15] MEDS ORDERED: CEPH500T PO (15:23)
[2021-02-15] MEDS ORDERED: fentaNYL INJ 100 MCG/2 ML AMP IVP ONE (15:30)
[2021-02-15 15:47] VITALS: BP 116/79
== END 2021-02-15 15:47 | disposition home or self-care (01) ==
LOC: EDUNIT# 12:38 → ER 12:39
DX: I89.1 Lymphangitis (principal); E66.01 Morbid (severe) obesity due to excess calories; Z68.43 Body mass index [BMI] 50.0-59.9, adult
CPT/HCPCS: 74177; 81000; 84703; 87088

== ENCOUNTER 2021-11-27 05:07 | Emergency (ER) | payer MEDICARE, MEDICAID ==
[~2021-11-27] VITALS: Ht 177.8 cm; Wt 158.8 kg
[~2021-11-27 05:07] MED LIST changes: +CEPH500T PO; +CYCL10TA25 PO
[2021-11-27 05:13] VITALS: BP 132/89
[2021-11-27] MEDS ORDERED: RX-NEO/POLYB/HC OTIC (CORTISPORIN) SUSP 10 ML BTL OT STA (05:40)
--- NOTE | 2021-11-27 05:43 | ED EENT ---
History of Present Illness General Chief Complaint: Foreign Body Stated Complaint: F O IN RT EAR Nursing Triage Note: REPORTS BUG IN RIGHT EAR Source: patient Exam Limitations: no limitations History of Present Illness Date Seen by Provider: Nov 27, 2021 Time Seen by Provider: 05:15 Initial Comments This 31-year-old woman presents to the emergency room in distress and agitated because she woke to a bug crawling around in her right ear. Allergies and Home Medications Allergies Coded Allergies: No Known Drug Allergies (Unverified , 07/15/18) Patient Home Medication List Home Medication List Reviewed: Yes No Active Prescriptions or Reported Meds Review of Systems Review of Systems Constitutional: no symptoms reported Eyes: No Symptoms Reported Ears: See HPI Nose: no symptoms reported Mouth: no symptoms reported Neurological: See HPI Past Xfgmtgw-Yxopfn-Infisb Hx Patient Social History Tobacco Use?: Yes Substance use?: No Alcohol Use?: No Pt feels they are or have been: No Immunizations Up To Date Tetanus Booster (TDap): Less than 5yrs Second COVID19 Vaccination Holden: YES Seasonal Allergies Seasonal Allergies: No Past Medical History Surgery/Hospitalization HX: DENIES Surgeries: No Respiratory: No Cardiac: No Neurological: No Reproductive Disorders: No Sexually Transmitted Disease: No HIV/AIDS: No Genitourinary: No Gastrointestinal: No Musculoskeletal: No Endocrine: Yes (MORBID OBESITY) HEENT: No Cancer: No Psychosocial: No Integumentary: No Blood Disorders: No Adverse Reaction/Blood Tranf: No Family Medical History ANXIETY 19 MOTHER Asthma 19 MOTHER (COPD) BI-POLAR 19 MOTHER BI-POLAR 19 MOTHER FH: heart attack Hypertension 19 MOTHER No Pertinent Family Hx Physical Exam Vital Signs Vital Signs - First Documented 11/27/21 05:13 Temp 36.6 Pulse 128 Resp 20 B/P (MAP) 132/89 (103) Pulse Ox 100 O2 Delivery Room Air Height, Weight, BMI Height: 5'10.00" Weight: 305lbs. oz. 138.218303fl; 50.00 BMI Method:Stated General Appearance: WD/WN, moderate distress Ears: right ear other (There was a griffith like insect occluding the right ear canal. After removal there is minimal irritation noted.) Nose: normal inspection Neurologic/Psychiatric: alert, oriented x 3 Skin: normal color, warm/dry Progress/Results/Core Measures Results/Orders My Orders Vital Signs/I&O Blood Pressure Mean: 103 Progress Progress Note : Progress Note The insect did not evacuate the ear canal when the otoscope light was shined on it. The ear canal was then filled with tetracaine. Once anesthesia was achieved, the insect was removed using alligator forceps. The remaining tetracaine was blotted from the ear and the ear was reinspected. Cortisporin drops were applied to help with the irritation and to prevent infection. Departure Impression Primary Impression: Foreign body in ear Qualified Codes: T16.1XXA - Foreign body in right ear, initial encounter Disposition: HOME, SELF-CARE Condition: Improved Departure-Patient Inst. Decision time for Depature: 05:41 Referrals: [facility] (PCP/Family) Primary Care Physician Patient Instructions: Foreign Body in the Ear, Child ED Add. Discharge Instructions: Place 4 drops in the right ear 3 times a day as long as there is irritation for up to 5 days. If you have worsening symptoms, please return to care. All discharge instructions reviewed with patient and/or family. Voiced unders tanding. Scripts No Active Prescriptions or Reported Meds ALEAH MENDOZA MD Nov 27, 2021 05:43
== END 2021-11-27 05:47 | disposition home or self-care (01) ==
LOC: EDUNIT# 05:07 → ER 05:10
DX: T16.1XXA Foreign body in right ear, initial encounter (principal); E66.01 Morbid (severe) obesity due to excess calories; Z68.43 Body mass index [BMI] 50.0-59.9, adult
CPT/HCPCS: 99282

== ENCOUNTER 2022-04-01 22:49 | Emergency (ER) | payer MEDICARE, MEDICAID ==
[~2022-04-01] VITALS: Ht 183 cm; Wt 173.1 kg
[2022-04-01 23:42] LABS: BILIRUBIN,URINE NEGATIVE (NEGATIVE); CLARITY,URINE SL CLOUDY; COLOR,URINE YELLOW; GLUCOSE, URINE (UA) NEGATIVE (NEGATIVE); KETONES,URINE NEGATIVE (NEGATIVE); LEUKOCYTE ESTERASE ,URINE NEGATIVE (NEGATIVE); NITRITE,URINE NEGATIVE (NEGATIVE); PH,URINE 6.5 (5-9); PROTEIN,URINE NEGATIVE (NEGATIVE)
[2022-04-01] MEDS ORDERED: KETOROLAC 30 MG/ML VIAL IVP ONE (23:45)
--- NOTE | 2022-04-01 23:50 | ED Abdominal Pain ---
General Chief Complaint: Abdominal/GI Problems Stated Complaint: ABD PAIN/NAUSEA Nursing Triage Note: c/o mid abdominal pain/nausea, described as a constant pressure since this am. currently menstrating. Source of Information: Patient, Other (MOTHER) History of Present Illness Date Seen by Provider: Apr 01, 2022 Time Seen by Provider: 23:17 Initial Comments PT ARRIVES VIA POV FROM HOME WITH MOTHER PT STATES SHE WOKE UP THIS MORNING WITH MID ABDOMINAL AND EPIGASTRIC PAIN AND NAUSEA. SHE ATE A TV DINNER FOR BREAKFAST, BUT HAS NOT HAD ANYTHING TO EAT SINCE--NO APPETITE SHE HAS BEEN ABLE TO DRINK LIQUIDS HAD A NORMAL BM TODAY NO URINARY SYMPTOMS AND VOIDING A NORMAL PAIN IS CONSTANT AND DOES NOT RADIATE PAIN IS WORSE WITH WALKING OR SITTING HAS TAKEN TUMS WITHOUT RELIEF PT IS CURRENTLY ON HER PERIOD, STARTED OCP'S LAST TUESDAY. SHE HAS HISTORY OF RIGHT OVARIAN CYST, BUT THIS DOES NOT FEEL THE SAME PAIN SHE HAD FROM THE OVARIAN CYST PCP: DESTINY TEMPLE Allergies and Home Medications Allergies Coded Allergies: No Known Drug Allergies (Unverified , 07/15/18) Patient Home Medication List Home Medication List Reviewed: Yes No Active Prescriptions or Reported Meds Review of Systems Review of Systems Constitutional: no symptoms reported Respiratory: No Symptoms Reported Cardiovascular: No Symptoms Reported Gastrointestinal: See HPI, Abdominal Pain; Denies Constipated, Denies Diarrhea; Nausea; Denies Vomiting Genitourinary: No Symptoms Reported Musculoskeletal: no symptoms reported; No back pain Skin: no symptoms reported Psychiatric/Neurological: No Symptoms Reported Endocrine: No Symptoms Reported Hematologic/Lymphatic: No Symptoms Reported Past Aonrtdz-Ixaiop-Psqume Hx Patient Social History Tobacco Use?: Yes Tobacco type used: Cigarettes Smoking Status: Current Everyday Smoker Substance use?: No Alcohol Use?: No Pt feels they are or have been: No Immunizations Up To Date Tetanus Booster (TDap): Less than 5yrs First/Initial COVID19 Vaccinat: x2 Second COVID19 Vaccination Holden: YES Seasonal Allergies Seasonal Allergies: No Past Medical History Surgery/Hospitalization HX: DENIES Surgeries: No Respiratory: No Cardiac: No Neurological: No : No Last Menstrual Period: Apr 01, 2022 Reproductive Disorders: No Sexually Transmitted Disease: No HIV/AIDS: No Genitourinary: No Gastrointestinal: No Musculoskeletal: No Endocrine: Yes (MORBID OBESITY) HEENT: No Cancer: No Psychosocial: No Integumentary: No Blood Disorders: No Adverse Reaction/Blood Tranf: No Family Medical History ANXIETY 19 MOTHER Asthma 19 MOTHER (COPD) BI-POLAR 19 MOTHER BI-POLAR 19 MOTHER FH: heart attack Hypertension 19 MOTHER No Pertinent Family Hx Physical Exam Vital Signs Vital Signs - First Documented 04/01/22 23:10 Temp 37.5 Pulse 95 Resp 16 B/P (MAP) 129/87 (101) Pulse Ox 99 O2 Delivery Room Air Capillary Refill : Less Than 3 Seconds Height/Weight/BMI Height: 5'10.00" Weight: 305lbs. oz. 138.328804zc; 51.00 BMI Method:Stated General Appearance: WD/WN, no apparent distress, obese, other (WALKS UPRIGHT AND MOVES QUICKLY WITHOUT DIFFICULTY) Neck: normal inspection Respiratory: normal breath sounds, no respiratory distress, no accessory muscle use Cardiovascular: regular rate, rhythm, no murmur Gastrointestinal: normal bowel sounds, soft; No distended, No guarding, No rebound; tenderness (DIFFUSE UPPER ABDOMINAL TENDERENSS); No hernia, No mass Extremities: normal range of motion, non-tender, normal inspection, no pedal edema, no calf tenderness, normal capillary refill Back: normal inspection, no CVA tenderness, no vertebral tenderness Neurologic/Psychiatric: farrowing manager II-XII nml as tested, no motor/sensory deficits, alert, normal mood/affect, oriented x 3 Skin: normal color (DARK SKINNED), warm/dry; No rash Progress/Results/Core Measures Results/Orders Lab Results Laboratory Tests Test 04/01/22 23:20 04/01/22 23:50 Range/Units Urine Color YELLOW Urine Clarity SL CLOUDY Urine pH 6.5 5-9 Urine Specific [place] 1.020 1.016-1.022 Urine Protein NEGATIVE NEGATIVE Urine Glucose (UA) NEGATIVE NEGATIVE Urine Ketones NEGATIVE NEGATIVE Urine Nitrite NEGATIVE NEGATIVE Urine Bilirubin NEGATIVE NEGATIVE Urine Urobilinogen 0.2 < = 1.0 MG/DL Urine Leukocyte Esterase NEGATIVE NEGATIVE Urine RBC (Auto) 1+ H NEGATIVE Urine RBC NONE /HPF Urine WBC NONE /HPF Urine Crystals NONE /LPF Urine Bacteria TRACE /HPF Urine Casts NONE /LPF Urine Mucus NEGATIVE /LPF Urine Culture Indicated NO White Blood Count 9.6 4.3-11.0 10^3/uL Red Blood Count 4.24 3.80-5.11 10^6/uL Hemoglobin 10.6 L 11.5-16.0 g/dL Hematocrit 34 L 35-52 % Mean Corpuscular Volume 80 80-99 fL Mean Corpuscular Hemoglobin 25 25-34 pg Mean Corpuscular Hemoglobin Concent 31 L 32-36 g/dL Red Cell Distribution Width 18.0 H 10.0-14.5 % Platelet Count 233 130-400 10^3/uL Mean Platelet Volume 10.2 9.0-12.2 fL Immature Granulocyte % (Auto) 0 % Neutrophils (%) (Auto) 73 42-75 % Lymphocytes (%) (Auto) 17 12-44 % Monocytes (%) (Auto) 8 0-12 % Eosinophils (%) (Auto) 2 0-10 % Basophils (%) (Auto) 1 0-10 % Neutrophils # (Auto) 7.0 1.8-7.8 10^3/uL Lymphocytes # (Auto) 1.6 1.0-4.0 10^3/uL Monocytes # (Auto) 0.8 0.0-1.0 10^3/uL Eosinophils # (Auto) 0.1 0.0-0.3 10^3/uL Basophils # (Auto) 0.1 0.0-0.1 10^3/uL Immature Granulocyte # (Auto) 0.0 0.0-0.1 10^3/uL Sodium Level 137 135-145 MMOL/L Potassium Level 3.5 L 3.6-5.0 MMOL/L Chloride Level 103 98-107 MMOL/L Carbon Dioxide Level 24 21-32 MMOL/L Anion Gap 10 5-14 MMOL/L Blood Urea Nitrogen 9 7-18 MG/DL Creatinine 0.77 0.60-1.30 MG/DL Estimat Glomerular Filtration Rate 104 BUN/Creatinine Ratio 12 Glucose Level 105 70-105 MG/DL Calcium Level 8.7 8.5-10.1 MG/DL Corrected Calcium 9.0 8.5-10.1 MG/DL Total Bilirubin 0.3 0.1-1.0 MG/DL Aspartate Amino Transf (AST/SGOT) 14 5-34 U/L Alanine Aminotransferase (ALT/SGPT) 14 0-55 U/L Alkaline Phosphatase 76 40-136 U/L Total Protein 6.8 6.4-8.2 GM/DL Albumin 3.6 3.2-4.5 GM/DL Amylase Level 56 25-125 U/L Lipase 10 8-78 U/L My Orders Orders - TERRI ALEXANDER DO Urine Bedside (04/01/22 23:17) Ua Culture If Indicated (04/01/22 23:17) Ed Iv/Invasive Line Start (04/01/22 23:40) Amylase (04/01/22 23:40) Cbc With Automated Diff (04/01/22 23:40) Comprehensive Metabolic Panel (04/01/22 23:40) Lipase (04/01/22 23:40) Ketorolac Injection (Toradol Injection) (04/01/22 23:45) Ct Abd/Pelv W (Appendicitis) (04/02/22 00:01) Medications Given in ED Current Medications Medications Dose Ordered Sig/Nicko Route Start Time Stop Time Status Last Admin Dose Admin Ketorolac Tromethamine 30 mg ONCE ONCE IVP 04/01/22 23:45 04/01/22 23:46 DC 04/01/22 23:54 30 MG Vital Signs/I&O 04/01/22 04/02/22 23:10 02:09 Temp 37.5 37.0 Pulse 95 78 Resp 16 16 B/P (MAP) 129/87 (101) 133/94 Pulse Ox 99 98 O2 Delivery Room Air Room Air Blood Pressure Mean: 101 Progress Progress Note : Progress Note PT WAS GIVEN TORADOL WITH COMPLETE RELIEF OF SYMPTOMS REVIEWED TEST RESULTS, AND NEED FOR FOLLOW UP MOM NOW STATES THAT PT HAS AN APPOINTMENT FIRST THING THIS MORNING WITH DESTINY HURLEY AT [facility] FOR THIS PROBLEM. I ADVISED HER TO KEEP APPOINTMENT, FOR ONGOING CARE, SHE MAY NEED ADDITIONAL OUTPATIENT TESTING IF HER SYMPTOMS RETURN. Diagnostic Imaging Comments CT ABDOMEN/PELVIS--NO ACUTE PROCESS, PER [facility] VIA FAX AT 0200 Reviewed: Reviewed by Me Departure Impression Primary Impression: Upper abdominal pain Disposition: 01 HOME, SELF-CARE Condition: Improved Departure-Patient Inst. Decision time for Depature: 02:01 Referrals: [facility] (PCP/Family) Primary Care Physician Patient Instructions: Abdominal Pain, Adult ED Add. Discharge Instructions: HOME, REST CLEAR LIQUIDS--WATER, BROTH, JELLO, GATORADE TOMORROW IF YOU ARE BETTER, ADD BRATS DIET TO CLEAR LIQUIDS--BANANAS, RICE, APPLESAUCE, TOAST, SALTINES KEEP YOUR APPOINT TODAY WITH HOME CARE RN XAVI FOR FURTHER CARE All discharge instructions reviewed with patient and/or family. Voiced understanding. Scripts No Active Prescriptions or Reported Meds TERRI ALEXANDER DO Apr 01, 2022 23:50
[2022-04-02 00:01] LABS: BASOPHILS # (AUTO) 0.1 10^3/uL (0.0-0.1); BASOPHILS % (AUTO) 1 % (0-10); EOSINOPHILS # (AUTO) 0.1 10^3/uL (0.0-0.3); EOSINOPHILS % (AUTO) 2 % (0-10); HEMATOCRIT 34 % (35-52); HEMOGLOBIN 10.6 g/dL (11.5-16.0); LYMPHOCYTES # (AUTO) 1.6 10^3/uL (1.0-4.0); LYMPHOCYTES % (AUTO) 17 % (12-44); MEAN CORPUSCULAR HEMOGLOBIN 25 pg (25-34); MEAN CORPUSCULAR HGB CONC 31 g/dL (32-36); MEAN CORPUSCULAR VOLUME 80 fL (80-99); MEAN PLATELET VOLUME 10.2 fL (9.0-12.2); MONOCYTES # (AUTO) 0.8 10^3/uL (0.0-1.0); MONOCYTES % (AUTO) 8 % (0-12); NEUTROPHILS % (AUTO) 73 % (42-75); PLATELET COUNT 233 10^3/uL (130-400); WHITE BLOOD COUNT 9.6 10^3/uL (4.3-11.0)
[2022-04-02 00:04] LABS: BACTERIA,URINE TRACE /HPF
[2022-04-02 00:23] LABS: ALBUMIN 3.6 GM/DL (3.2-4.5); BILIRUBIN,TOTAL 0.3 MG/DL (0.1-1.0); CALCIUM 8.7 MG/DL (8.5-10.1); CREATININE SERUM 0.77 MG/DL (0.60-1.30); POTASSIUM 3.5 MMOL/L (3.6-5.0); TOTAL PROTEIN 6.8 GM/DL (6.4-8.2)
[2022-04-02 02:09] VITALS: BP 133/94
--- NOTE | 2022-04-02 06:57 | Diagnostic Imaging Report ---
INDICATION: Right lower quadrant abdominal pain TECHNIQUE: Multiple contiguous axial images were obtained through the abdomen and pelvis after the administration of intravenous contrast. All CT scans use one or more of the following dose optimizing techniques: automated exposure control, MA and/or KvP adjustment based on patient size and exam type or iterative reconstruction. Comparison made to 02/15/2021 The visualized portions of the lung bases are clear. There were no pleural fluid collections. There is no free intraperitoneal air. The liver, spleen, adrenals and pancreas all appear normal. Kidneys bilaterally are unremarkable. There is no retroperitoneal mass or adenopathy. There is no ascites or abnormal fluid collection. There is no pelvic mass or adenopathy. There is prominent stool in the right colon. There is no CT evidence of appendicitis. The appendix is unremarkable. IMPRESSION: No acute abnormality visualized in the abdomen or pelvis. Dictated by: Dictated on workstation # [id number]
== END 2022-04-02 02:11 | disposition home or self-care (01) ==
LOC: EDUNIT# 22:49 → ER 22:52
DX: R10.13 Epigastric pain (principal); F17.210 Nicotine dependence, cigarettes, uncomplicated; E66.01 Morbid (severe) obesity due to excess calories; Z68.43 Body mass index [BMI] 50.0-59.9, adult
CPT/HCPCS: 36415; 74177; 80053; 81000; 82150; 83690; 84703; 85025

== ENCOUNTER 2023-04-03 17:08 | Emergency (ER) | payer MEDICARE, MEDICAID ==
[~2023-04-03] VITALS: Ht 177.8 cm; Wt 167.8 kg
[~2023-04-03 17:08] MED LIST changes: -D-ME473S11 PO; +PROM473S15 PO
[2023-04-03 17:17] VITALS: BP 138/96
--- NOTE | 2023-04-03 17:36 | ED Upper Extremity ---
General Chief Complaint: General Problems/Pain Stated Complaint: PAIN LEFT THUMB Nursing Triage Note: PATIENT C/O Lt. THUMB PAIN X 2 WKS WITH NO KNOWN INJURY. PATIENT DENIES ANY HX. OF GOUT. PATIENT STATES SHE MIGHT HAVE BUMPED IT ON HER SPOUSE X 2 WKS AGO. PATIENT STATES SHE HAS BEEN TAKING IBU AND TYLENOL FOR HER PAIN. PATIENT UNABLE TO STATE WHEN HER LAST DOSES WERE. Source: patient Exam Limitations: no limitations (SHIV PINEDA APRN) History of Present Illness Date Seen by Provider: Apr 03, 2023 Time Seen by Provider: 17:26 Initial Comments 32-year-old female presents to the ER with complaint of left thumb pain. States that she injured it approximately 2 days ago. States that she thinks she jammed her thumb when she bumped it on her fianc. She complains of pain in the entire thumb. Reports difficulty with range of motion of the thumb. She has not taken any pain medication today. (SHIV PINEDA APRN) Allergies and Home Medications Allergies Coded Allergies: No Known Drug Allergies (Unverified , 07/15/18) Patient Home Medication List Home Medication List Reviewed: Yes (SHIV PINEDA APRN) No Active Prescriptions or Reported Meds Review of Systems Constitutional: see HPI Musculoskeletal: see HPI (SHIV PINEDA APRN) Past Gdcplxe-Olfkem-Wbxkpw Hx Patient Social History Tobacco Use?: No Use of E-Cig and/or Vaping dev: No Use of E-Cig and/or Vaping Leonardo: Former User Substance use?: No Alcohol Use?: No Pt feels they are or have been: No (SHIV PINEDA APRN) Immunizations Up To Date Tetanus Booster (TDap): Less than 5yrs Influenza Vaccine Up-to-Date: No; Not Current First/Initial COVID19 Vaccinat: x2 Second COVID19 Vaccination Holden: YES (SHIV PINEDA APRN) Seasonal Allergies Seasonal Allergies: No (SHIV PINEDA APRN) Past Medical History Surgery/Hospitalization HX: DENIES Surgeries: No Respiratory: No Cardiac: No Neurological: No Last Menstrual Period: Mar 26, 2023 Reproductive Disorders: No Sexually Transmitted Disease: No HIV/AIDS: No Genitourinary: No Gastrointestinal: No Musculoskeletal: No Endocrine: Yes (MORBID OBESITY) HEENT: No Cancer: No Psychosocial: No Integumentary: No Blood Disorders: No Adverse Reaction/Blood Tranf: No (SHIV PINEDA APRN) Family Medical History ANXIETY 19 MOTHER Asthma 19 MOTHER (COPD) BI-POLAR 19 MOTHER BI-POLAR 19 MOTHER FH: heart attack Hypertension 19 MOTHER No Pertinent Family Hx (SHIV PINEDA APRN) Physical Exam Vital Signs Vital Signs - First Documented 04/03/23 17:17 Temp 36.6 Pulse 102 Resp 16 B/P (MAP) 138/96 (110) O2 Delivery Room Air (ALEAH MENDOZA MD) Vital Signs Capillary Refill : (SHIV PINEDA APRN) Height, Weight, BMI Height: 5'10.00" Weight: 305lbs. oz. 138.569873uz; 53.00 BMI Method:Stated General Appearance: WD/WN, no apparent distress Neck: supple, normal inspection Cardiovascular: regular rate, rhythm Respiratory: lungs clear, normal breath sounds, no respiratory distress, no accessory muscle use Hand: normal inspection, Left, bone tenderness, limited ROM (Of thumb) Neurologic/Psychiatric: alert, normal mood/affect Skin: normal color, warm/dry (SHIV PINEDA APRN) Progress/Results/Core Measures Results/Orders Blood Pressure Mean: 110 Progress Progress Note : Progress Note Patient seen and evaluated, resting in recliner, no acute distress. Based on exam and symptoms, x-ray of left hand ordered. Ibuprofen ordered for pain. 1812 x-ray reviewed. Negative for acute fracture. Results discussed with patient. Patient likely sprained her thumb. Patient is stable for discharge. Discharge instructions and return precautions provided. (SHIV PINEDA APRN) Diagnostic Imaging Diagonstic Imaging: Xray Plain Films/CT/US/NM/MRI: chest Comments [facility], [place] NAME: CITLALYMARCY R MED REC#: [id number] PT STATUS: REG ER : 1990 PHYSICIAN: SHIV PINEDA APRN ADMIT DATE: 04/03/23/ER Signed Date of Exam:04/03/23 HAND, RIGHT, 3 VIEWS INDICATION: Thumb pain. COMPARISON: Prior examination from 10/17/2014. FINDINGS: The alignment is normal. There is no fracture or dislocation. Soft tissues are unremarkable. IMPRESSION: No acute fracture or dislocation. Dictated by: Dictated on workstation # [id number] Dict: 04/03/231741 Trans: 04/03/231801 MARKEL [id number] Interpreted by: LOAN GOMEZ MD Electronically signed by: LOAN GOMEZ MD 04/03/231801 (SHIV PINEDA APRN) Departure Impression Primary Impression: Thumb pain Disposition: HOME, SELF-CARE Condition: Stable Departure-Patient Inst. Decision time for Depature: 18:13 (SHIV PINEDA APRN) Referrals: [facility] (PCP/Family) Primary Care Physician Patient Instructions: Thumb Sprain ED Add. Discharge Instructions: You may take 800 mg of ibuprofen every 8 hours with food as needed for pain. You may also take 1000 mg of Tylenol every 8 hours as needed for pain. Ice your thumb 20 minutes at a time several times a day for the next couple of days. Follow-up with your primary care provider if pain continues for a week or 2. Return for any new, concerning, or worsening symptoms. All discharge instructions reviewed with patient and/or family. Voiced understanding. Scripts No Active Prescriptions or Reported Meds ATTENDING PHYSICIAN NOTE: I was physically present as attending physician in the emergency department during the care of this patient, but I was not directly involved in the decision making or delivery of care for this patient. (ALEAH MENDOZA MD) SHIV PINEDA APRN Apr 03, 2023 17:36 ALEAH MENDOZA MD Apr 04, 2023 09:45
[2023-04-03] MEDS ORDERED: IBUPROFEN 800 MG TABLET PO ONE (17:45)
--- NOTE | 2023-04-03 17:47 | Diagnostic Imaging Report ---
INDICATION: Thumb pain. COMPARISON: Prior examination from 10/17/2014. FINDINGS: The alignment is normal. There is no fracture or dislocation. Soft tissues are unremarkable. IMPRESSION: No acute fracture or dislocation. Dictated by: Dictated on workstation # [id number]
== END 2023-04-03 18:18 | disposition home or self-care (01) ==
LOC: EDUNIT# 17:08 → ER 17:10
DX: M79.645 Pain in left finger(s) (principal); E66.01 Morbid (severe) obesity due to excess calories; Z87.891 Personal history of nicotine dependence; Z68.43 Body mass index [BMI] 50.0-59.9, adult; W23.1XXA Caught, crushed, jammed, or pinched between stationary objects, initial encounter
CPT/HCPCS: 73130